=== PATIENT | male | born 1995 | race Caucasian/White ===

== ENCOUNTER → 2019-09-02 08:41 | Outpatient (CLI) | payer OTHER, SELFPAY ==
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
== END ==
PROVIDERS: PCP Student in an Organized Health Care Education/Training Program; Referring Provider Nurse Practitioner; Visit Provider Nurse Practitioner
DX: M79.605 Pain in left leg (principal)
CPT/HCPCS: 73502; 73562; 73610

== ENCOUNTER → 2020-07-24 16:41 | Outpatient (CLI) | payer OTHER, MEDICAID, SELFPAY ==
[2020-07-26 03:03] LABS: Chlamydia trachomatis NAA Negative (Negative); Neisseria gonorrhoeae NAA Negative (Negative)
== END ==
PROVIDERS: PCP Student in an Organized Health Care Education/Training Program; Visit Provider Physician Assistant
DX: R30.0 Dysuria (principal)
CPT/HCPCS: 87491; 87591

== ENCOUNTER → 2020-10-23 09:01 | Outpatient (CLI) | payer BC, OTHER, SELFPAY ==
--- NOTE | 2020-10-23 09:05 | DI.US.S_ITS ---
PROCEDURE: US SCROTUM INDICATIONS: LEFT TESTICULAR LUMP TECHNIQUE: Real-time scanning was performed of the scrotum and testicles, with image documentation. Color and pulse Doppler interrogation was performed of both testicles. COMPARISON: None. FINDINGS: Right: Testicle is normal in size at 2.9 x 4.0 x 5.8 cm, and homogenous in echotexture. Epididymis is normal in overall size and morphology. No hydrocele or varicoceles. Overlying scrotal skin is normal in thickness. Left: Testicle is normal in size at 2.9 x 3.8 x 5.8 cm, and homogeneous in echotexture. Epididymis is normal in overall size and morphology. No hydrocele or varicoceles. Overlying scrotal skin is normal in thickness. The left epididymal tail is identifiable at the area of patient's clinical concern. No abnormality found suggestive of hydrocele, varicocele, or neoplasm.. Doppler: Color and pulse Doppler demonstrate normal and symmetric arterial flow in both testicles. IMPRESSION: The left epididymal tail can be identified at the area of current clinical concern. No testicular mass lesion found. No hyperemia or evidence of recent torsion. Dictated by: Lawrence Salazar M.D. on 10/23/2020 at 10:58 Approved by: Lawrence Salazar M.D. on 10/23/2020 at 11:00
== END ==
PROVIDERS: PCP Student in an Organized Health Care Education/Training Program; Referring Provider Student in an Organized Health Care Education/Training Program; Visit Provider Student in an Organized Health Care Education/Training Program
DX: N50.89 Other specified disorders of the male genital organs (principal)
CPT/HCPCS: 76870

== ENCOUNTER 2020-10-24 02:26 | Emergency (ER) | payer BC, OTHER, SELFPAY ==
--- NOTE | 2020-10-24 02:31 | ED.CHESTPAIN ---
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 His primary concern is of left arm pain, numbness, tingling and maybe even weakness that has been present for at least the past 2 hours. He states that he awoke with a sharp stabbing chest pain and racing heart and now notices the symptoms as mention. He denies any head neck or back injury. He denies any fever or chills. He denies any use of IV drugs or blood thinners. He denies any obvious provocation or palliation of his arm complaints. Additionally he states he has had episodes of twinges in his chest over the past few weeks but was trying to ignore it. Finally he states that he has a fogginess or pressure-like sensation in his head that seems to come and go with a mind of its own. He has no other focal neurologic signs such as blurred vision, trouble with speech or extremity problem outside of his left arm. He did fly to and from we know a few weeks ago. He denies any shortness of breath cough, hemoptysis or history of any kind of cancer. He has had no ongoing care or evaluations post myocardial infarction. Patient does mention that he has been actively working out his forearms in the past day or 2 but is admittedly concerned there may be something else going on, particularly given his history Related Data Previous Rx's Medication Instructions Recorded clonazepam 2 mg tablet 2 mg PO BID #60 tab 10/01/19 Allergies Allergy/AdvReac Type Severity Reaction Status Date / Time shellfish derived Allergy Intermediate Verified 07/24/20 16:42 [SHELLFISH DERIVED] latex [LATEX] Allergy Unknown Verified 10/01/19 10:34 Penicillins [PENICILLINS] Allergy Unknown Verified 07/24/20 16:42 contrast AdvReac Mild Vomiting Uncoded 10/24/20 03:30 Review of Systems Constitutional Constitutional: Denies chills, Denies fatigue, Denies fever(s), Denies frequent falls, Denies lethargy and Reports weakness Eyes Eyes: Denies change in vision, Denies eye discharge, Denies irritation and Denies loss of vision ENT Ears, Nose, Mouth, and Throat: Denies change in voice, Denies dizziness, Denies neck pain, Denies sore throat and Denies throat swelling Cardiovascular Cardiovascular: Reports chest pain, Denies irregular heart rhythm, Denies lightheadedness, Reports palpitations, Denies dyspnea, Denies dyspnea on exertion and Denies orthopnea Respiratory Respiratory: Denies cough, Denies dyspnea, Denies dyspnea on exertion and Denies wheezing Gastrointestinal Gastrointestinal: Denies abdominal pain, Denies change in bowel habits, Denies diarrhea, Denies nausea and Denies vomiting Musculoskeletal Musculoskeletal: Denies neck pain, Reports numbness and Reports tingling Integumentary/Breasts Skin/Breast: Denies pruritus, Denies erythema, Denies rash and Denies wounds Neurologic Neurologic: Denies behavioral changes, Denies confusion, Denies dizziness, Denies frequent falls, Denies loss of vision, Reports numbness, Reports tingling and Reports weakness Psychiatric Psychiatric: Denies anxiety, Denies behavioral changes, Denies confusion, Denies depression, Denies homicidal ideation and Denies suicidal ideation Endocrine Endocrine: Denies fatigue, Denies flushing and Reports palpitations Hematologic/Lymphatic Hematologic/Lymphatic: Denies easy bruising Allergic/Immunologic Allergic/Immunologic: Denies urticaria, Denies throat swelling and Denies wheezing Patient History Medical History Urethral irritation Social History Smoking Status: Former smoker Smoking Status: Former smoker Exam Narrative Exam Narrative: GENERAL: [25] year old patient appears stated age. Well-nourished, well-developed patient, in mild distress. Anxious HEAD: Atraumatic. Normocephalic. EYES: Pupils equal round and reactive. Extraocular motions intact. No scleral icterus. No injection or drainage. ENT: Nose without bleeding, purulent drainage. Throat without erythema, tonsillar hypertrophy or exudate. Airway patent. NECK: Trachea midline. Non tender. No change with axial load of cervical spine, no pain on palpation CARDIOVASCULAR: Regular rate and rhythm without murmurs, gallops, or rubs. No pain on palpation anterior chest RESPIRATORY: Clear to auscultation. Breath sounds equal bilaterally. No wheezes, rales, or rhonchi. GASTROINTESTINAL: Abdomen soft, non-tender, nondistended. EXTREMITIES: No edema or joint tenderness. No discoloration, cap refill intact. No measurable weakness, patient states there is a ?tingling that his deep, not noticed on sensory exam BACK: Nontender without deformity or crepitance. No flank tenderness. NEURO: AOx3. SKIN: No rash or erythema of visible areas Initial Vital Signs Initial Vital Signs: Vital Signs Temperature 98.6 F 10/24/20 02:32 Pulse Rate 96 H 10/24/20 02:32 Respiratory Rate 16 10/24/20 02:32 Blood Pressure 165/100 H 10/24/20 02:32 Pulse Oximetry 100 10/24/20 02:32 Course Orders Ordered: ED Orders 10/24/20 02:28 EKG-12 Lead Stat 10/24/20 02:32 XR chest 1V Stat 10/24/20 02:45 C-Reactive Protein Quant Stat Complete Blood Count AUTO DIFF Stat Comprehensive Metabolic Panel Stat D Dimer Stat Erythrocyte Sedimentation Rate Stat Lipase Stat Troponin & CK Cardiac Panel Stat 10/24/20 02:53 CT angio chest abdomen Stat Sodium Chloride (Normal Saline 0.9%) 1,000 mls @ 150 mls/hr IV CONT NILSA Last Admin: 10/24/20 02:50 Dose: 150 mls/hr Documented by: HENRIK Discontinued Medications Aspirin (Aspirin 81 Mg Chew Tab) 324 mg PO NOW ONE Stop: 10/24/20 02:33 Last Admin: 10/24/20 03:01 Dose: Not Given Documented by: HENRIK Vital Signs Vital signs: Vital Signs - 8 hr 10/24/20 02:32 10/24/20 03:29 10/24/20 03:38 Temperature 98.6 F Pulse Rate 96 H 77 81 Respiratory Rate 16 Blood Pressure 165/100 H Pulse Oximetry 100 100 99 10/24/20 03:39 10/24/20 04:00 Temperature Pulse Rate 74 73 Respiratory Rate 16 Blood Pressure 141/84 H 133/68 Pulse Oximetry 100 98 MDM - Chest Pain Lab Data Result diagrams: 10/24/20 02:45 10/24/20 02:45 Labs: Lab Results 10/24/20 10/24/20 10/24/20 Range/Units 02:45 02:45 02:45 WBC 10.1 (4.5-11.0) X10^3/uL RBC 5.23 (4.5-5.9) X10^6/uL Hgb 15.9 (13.5-17.5) g/dL Hct 46.6 (41-53) % MCV 89.1 (80-100) fL MCH 30.5 (26-34) PG MCHC 34.2 (30-36) % RDW 13.6 (11.6-14.8) % Plt Count 259 (150-400) X10^3/uL Neut % (Auto) 58.6 (50-75) % Lymph % (Auto) 28.0 (25-40) % [place] % (Auto) 10.8 (3-14) % Eos % (Auto) 2.2 (2-4) % Baso % (Auto) 0.4 (0-2) % Neut # (Auto) 5900 (6348-3863) /uL Lymph # (Auto) 2800 (8221-4533) /uL [place] # (Auto) 1100 H (0-900) /uL Eos # (Auto) 200 (0-450) /uL Baso # (Auto) 0 (0-100) /uL ESR 1 (0-15) MM/HR D-Dimer < 200 (<230) ng/mL Sodium 137 (137-145) mmol/L Potassium 3.4 (3.4-5.1) mmol/L Chloride 99 (98-107) mmol/L Carbon Dioxide 28 (22-32) mmol/L BUN 21 H (9-20) mg/dL Creatinine 0.81 (0.66-1.25) mg/dL Estimated GFR > 60.0 (>60) mL/min BUN/Creatinine Ratio 25.9 H (6-22) Glucose 99 (70-100) mg/dL Calcium 9.9 (8.4-10.2) mg/dL Total Bilirubin 0.6 (0.2-1.3) mg/dL AST 40 (17-59) IU/L ALT 43 (<50) IU/L Alkaline Phosphatase 51 (38-126) U/L Total Creatine Kinase 194 H (55-170) U/L CK-MB (CK-2) 1.00 (<2.37) ng/mL CK-MB (CK-2) Rel Index 0.5 L (1.5-5.0) % Troponin I < 0.012 (0.01-0.034) ng/mL C-Reactive Protein < 0.5 (<1.0) mg/dL Total Protein 7.8 (6.3-8.2) g/dL Albumin 4.6 (3.5-5.0) g/dL Globulin 3.2 (1.7-4.1) g/dL Albumin/Globulin Ratio 1.4 (1.0-2.8) Lipase 75 (23-300) U/L Imaging Data CT scan - chest: Radiologist's Impression: Normal CT angiography of the chest and abdomen ECG Data Interpretation: EKG is normal sinus rhythm rate [87] and free of any signs of ischemia or ectopy. No ST segmental elevation or depression. No T wave inversions. Q-wave in 2 and 3 MDM Narrative Medical decision making narrative: Multiple complaints occurring at different time in place over the past few weeks are unlikely to be related however significant diagnoses such as pulmonary embolism, myocardial infarction and large vessel dissection were considered but thought unlikely given elements of history, physical, labs and imaging. Multiple causes of chest pain considered including MS, PE, pneumothorax, pneumonia, aortic dissection, and pleurisy. Patient reports no radiation, no diaphoresis, no provocation with exertion, and no vomiting. Stroke considered but thought unlikely given physical exam findings and patient reported history. Patient has been given return precautions, already has an established follow-up visit and has had questions answered to his apparent satisfaction Discharge Plan Departure Patient Disposition: Home Clinical Impression: Tingling of left upper extremity, Heart palpitations Activity Restrictions/Additional Instructions: *You have been diagnosed with [left arm tingling, atypical chest pain and palpitations. Your history, physical exam, lab work, EKG and CT scan are very reassuring] *What to do: *Please continue to take your regular medications as directed. [ ] New medication prescriptions sent to your pharmacy: [ ] [ ] New medication written as a paper prescription [ X] No new medications given *Please follow up with Dr. Dalal tomorrow as planned, however, please call the office later today and let them know you were seen in the Emergency Department so he may go through the record of today's events prior to her visit *Return to Emergency Department if you should have any new, worsening or concerning symptoms, such as [fever greater than 101 F, shaking chills, worsening pain, persistent vomiting or other bothersome symptoms] Prescriptions: No Action clonazepam 2 mg tablet 2 mg PO BID Qty: 60 RF: 5 Referrals: Cesar Dalal MD [Primary Care Provider] -
[2020-10-24 02:32] VITALS: BP 165/100; PULSE 96; RESP 16; TEMP 37; O2SAT 100; BMI 29.5
--- NOTE | 2020-10-24 02:32 | DI.RAD.S_ITS ---
PROCEDURE: XR CHEST 1V INDICATIONS: tachycardia, history of PR TECHNIQUE: One view of the chest was acquired. COMPARISON: None. FINDINGS: Surgical changes and devices: None. Lungs and pleura: Lungs are clear. No pleural effusions or pneumothorax. Mediastinum: Mediastinal contours appear normal. Heart size is normal. Bones and chest wall: No suspicious bony lesions. Overlying soft tissues appear unremarkable. IMPRESSION: No acute cardiopulmonary disease process. Dictated by: Katy Crespo MD, PhD on 10/24/2020 at 9:07 Approved by: Katy Crespo MD, PhD on 10/24/2020 at 9:07
[2020-10-24] MEDS: SODIUM CHLORIDE 0.9% 1,000 ML 150 ML IV (02:50)
--- NOTE | 2020-10-24 02:53 | DI.CT.S_ITS ---
PROCEDURE: CT ANGIO CHEST ABDOMEN INDICATIONS: chest discomfort, arm pain and tingling, cold feeling TECHNIQUE: Precontrast 5 mm thick sections acquired from the lung apices to the iliac crests. After the administration of intravenous contrast, 2.5 mm thick sections again acquired from the lung apices to the iliac crests. 10 mm maximum intensity projection (MIP) oblique sagittal and coronal reformats were then acquired. For radiation dose reduction, the following was used: automated exposure control. COMPARISON: None. FINDINGS: Image quality: Excellent. AORTA: Intramural hematoma: Absent Maximum hematoma thickness: Not applicable. Focal contrast enhancement: Intramural blood pool (< 2 mm neck or imperceptible communication with aortic lumen): Absent. Ulcer-like projection (broad communication with aortic lumen > 3 mm): Absent. Dissection: Absent [place] classification: Not applicable Maximum aortic diameter: 3.1 cm. [If Jasson A dissection, > 5.0 cm has a poorer prognosis. If Jasson B dissection, > 4.0 cm has a poorer prognosis.] Periaortic hematoma: Absent. CHEST: Lungs and pleura: No acute airspace opacities. No pleural effusions or pneumothorax. Central and peripheral airways are patent and normal in caliber. Mediastinum: Heart size is normal. No pericardial effusion. No mediastinal or hilar adenopathy by size criteria. Central pulmonary arteries are normal in size. Esophagus is normal in caliber. Small hiatal hernia. Bones and chest wall: No axillary adenopathy by size criteria. Thyroid gland is normal.. No suspicious bony lesions. No vertebral body compression fractures. ABDOMEN: Vasculature: Celiac trunk and mesenteric arteries are patent. Renal arteries are also patent. Solid organs: Liver is normal in size and enhancement. Gallbladder is contracted, but within normal limits. Biliary system is non dilated. Pancreas enhances normally. Spleen is normal in size and enhancement. No adrenal nodules. Both kidneys are normal in size and enhancement, without hydronephrosis. Peritoneum and bowel: No free fluid or air. Bowel loops are normal in caliber and wall thickness. Nodes and vessels: No retroperitoneal or mesenteric adenopathy by size criteria. Inferior vena cava is normal in morphology. Bones: No suspicious bony lesions. No vertebral body compression fractures. Miscellaneous: No ventral hernias. IMPRESSION: No evidence of aortic dissection or aortic aneurysm. Dictated by: Katy Crespo MD, PhD on 10/24/2020 at 7:11 Approved by: Katy Crespo MD, PhD on 10/24/2020 at 7:16
[2020-10-24 02:54] LABS: Add Manual Diff / Slide Review NO; Basophils Absolute Auto 0 /uL (0-100); Basophils Percent Auto 0.4 % (0-2); Eosinophils Absolute Auto 200 /uL (0-450); Eosinophils Percent Auto 2.2 % (2-4); Hematocrit 46.6 % (41-53); Hemoglobin 15.9 g/dL (13.5-17.5); Lymphocytes Absolute Auto 2800 /uL (1100-4500); Mean Corpuscular HGB Conc 34.2 % (30-36); Mean Corpuscular Hemoglobin 30.5 PG (26-34); Mean Corpuscular Volume 89.1 fL (80-100); Monocytes Absolute Auto 1100 /uL (0-900); Monocytes Percent Auto 10.8 % (3-14); Neutrophils Absolute Auto 5900 /uL (1500-7000); Neutrophils Percent Auto 58.6 % (50-75); Platelet Count 259 X10^3/uL (150-400); Red Blood Cell Count 5.23 X10^6/uL (4.5-5.9); Red Cell Distribution Width 13.6 % (11.6-14.8); White Blood Cell Count 10.1 X10^3/uL (4.5-11.0)
[2020-10-24 03:05] LABS: D Dimer < 200 ng/mL (<230)
[2020-10-24 03:10] LABS: Alanine Aminotransferase 43 IU/L (<50); Albumin 4.6 g/dL (3.5-5.0); Albumin Globulin Ratio 1.4 (1.0-2.8); Alkaline Phosphatase 51 U/L (38-126); Aspartate Aminotransferase 40 IU/L (17-59); BUN Creatinine Ratio 25.9 (6-22); Bilirubin Total 0.6 mg/dL (0.2-1.3); Blood Urea Nitrogen 21 mg/dL (9-20); Calcium 9.9 mg/dL (8.4-10.2); Carbon Dioxide 28 mmol/L (22-32); Chloride 99 mmol/L (98-107); Creatine Kinase 194 U/L (55-170); Estimated Glomerular Filt Rate > 60.0 mL/min (>60); Globulin 3.2 g/dL (1.7-4.1); Glucose 99 mg/dL (70-100); HEMOLYSIS < 15 (0-50); Lipase 75 U/L (23-300); Potassium 3.4 mmol/L (3.4-5.1); Sodium 137 mmol/L (137-145); Total Protein 7.8 g/dL (6.3-8.2)
[2020-10-24 03:21] LABS: Troponin I < 0.012 ng/mL (0.01-0.034)
[2020-10-24 03:25] LABS: CKMB % Relative Index 0.5 % (1.5-5.0)
[2020-10-24 03:29] VITALS: PULSE 77; O2SAT 100
[2020-10-24 03:29] LABS: Erythrocyte Sedimentation Rate 1 MM/HR (0-15)
[2020-10-24 03:31] LABS: C-Reactive Protein Quant < 0.5 mg/dL (<1.0)
[2020-10-24 03:38] VITALS: PULSE 81; O2SAT 99
[2020-10-24 03:39] VITALS: BP 141/84; PULSE 74; O2SAT 100
[2020-10-24 04:00] VITALS: BP 133/68; PULSE 73; RESP 16; O2SAT 98
== END 2020-10-24 04:28 | disposition home or self-care (01) ==
PROVIDERS: Emergency Provider Emergency Medicine; PCP Student in an Organized Health Care Education/Training Program
DX: R20.2 Paresthesia of skin (principal); R00.2 Palpitations; M79.602 Pain in left arm
CPT/HCPCS: 36415; 71045; 71275; 74175; 80053; 82550; 82553; 83690; 84484; 85025; 85379; 85651; 86140; 93005; 96360; 96361; 99284; 99285; Q9967

== ENCOUNTER → 2022-08-20 17:53 | Outpatient (CLI) | payer OTHER, MEDICAID, SELFPAY | PROVIDERS: PCP Student in an Organized Health Care Education/Training Program; Visit Provider Physician Assistant | DX: T14.8XXA Other injury of unspecified body region, initial encounter (principal) | CPT/HCPCS: 87070; 87075; 87205 ==

== ENCOUNTER 2024-06-23 04:18 | Inpatient (IN) | payer OTHER, SELFPAY ==
[2024-06-23] VITALS (127 sets, daily range): BP systolic 119–154; BP diastolic 74–103; PULSE 68–119; RESP 11–21; TEMP 31.2–38.3; O2SAT 93–99; BMI 26.5
--- NOTE | 2024-06-23 04:21 | DI.RAD.S_ITS ---
PROCEDURE: XR CHEST 1V INDICATIONS: seizure, ? overdose TECHNIQUE: One view of the chest was acquired. COMPARISON: [facility], CR, XR CHEST 1V, 10/24/2020, 2:36. FINDINGS: Surgical changes and devices: Endotracheal tube tip projects 4.7 cm above the madelaine. Lungs and pleura: Lungs are clear. No pleural effusions or pneumothorax. Mediastinum: Mediastinal contours appear normal. Heart size is normal. Bones and chest wall: No suspicious bony lesions. Overlying soft tissues appear unremarkable. IMPRESSION: No acute cardiopulmonary abnormality is seen. Appropriate positioning of endotracheal tube. No significant discrepancy with the double ending machine operator radiology preliminary report. Dictated by: Varinder Vivas M.D. on 06/23/2024 at 8:43 Approved by: Varinder Vivas M.D. on 06/23/2024 at 8:44
--- NOTE | 2024-06-23 04:21 | DI.CT.S_ITS ---
PROCEDURE: CT HEAD/BRAIN WO CON INDICATIONS: seizure, ? overdose TECHNIQUE: Noncontrast 4.5 mm thick angled axial sections acquired from the foramen magnum to the vertex, with coronal and sagittal reformats. For radiation dose reduction, the following was used: automated exposure control, adjustment of mA and/or kV according to patient size. COMPARISON: None. FINDINGS: Image quality: Diagnostic. CSF spaces: Basal cisterns are patent. No extra-axial fluid collections. Ventricles are normal in size and shape. Brain: No midline shift. No intracranial masses or hemorrhage. Mcginnis-white matter interface is normal. Skull and face: Calvarium and visualized facial bones are intact, without suspicious lesions. Sinuses: Bilateral maxillary sinus mucosal thickening. Remainder of the paranasal sinuses appear clear. Mastoid air cells are well-aerated. IMPRESSION: No acute intracranial abnormalities. No acute calvarial fracture. Bilateral maxillary sinus disease. No significant discrepancy with the shift foreman radiology preliminary report. Dictated by: Varinder Vivas M.D. on 06/23/2024 at 8:43 Approved by: Varinder Vivas M.D. on 06/23/2024 at 8:43
[2024-06-23] MEDS: LORazepam 2 MG/ML INJ 1 MG IV ×3 (04:25→09:40)
[2024-06-23] MEDS: SODIUM CHLORIDE 0.9% 1,000 ML 1000 ML IV ×2 (04:30→05:30)
[2024-06-23] MEDS: LORazepam 2 MG/ML INJ IV ×2 (04:33→05:12)
[2024-06-23 04:39] LABS: Add Manual Diff / Slide Review NO; Basophils Absolute Auto 0 /uL (0-100); Basophils Percent Auto 0.2 % (0-2); Eosinophils Absolute Auto 0 /uL (0-450); Eosinophils Percent Auto 0.3 % (2-4); Hemoglobin 15.9 g/dL (13.5-17.5); Lymphocytes Absolute Auto 6800 /uL (1100-4500); Lymphocytes Percent Auto 59.2 % (25-40); Mean Corpuscular HGB Conc 33.9 % (30-36); Mean Corpuscular Hemoglobin 32.5 PG (26-34); Mean Corpuscular Volume 95.8 fL (80-100); Monocytes Absolute Auto 500 /uL (0-900); Monocytes Percent Auto 4.8 % (3-14); Neutrophils Absolute Auto 4100 /uL (1500-7000); Neutrophils Percent Auto 35.5 % (50-75); Platelet Count 378 X10^3/uL (150-400); Red Blood Cell Count 4.91 X10^6/uL (4.5-5.9); Red Cell Distribution Width 14.3 % (11.6-14.8); White Blood Cell Count 11.5 X10^3/uL (4.5-11.0)
[2024-06-23] MEDS: ETOMIDATE 2 MG/ML 10 ML VIAL 10 MG IV (04:43)
--- NOTE | 2024-06-23 04:43 | PC.NURSE ---
Respiratory therapy- Dr. Jorden Cherry Kate, RN and this nurse at bedside to intubate patient. Medications given- See AUG. Dr. Leonardo intubated, Ett size 7.5 tube placed at 0445. Tube measuring 25cm at the teeth. Bilat breath sounds auscultated, bilateral chest rise visualized, exhaled co2 on monitor. Pt now getting chest xray.
[2024-06-23] MEDS: SUCCINYLCHOLINE 200 MG/10 ML VIAL 100 MG IV (04:44)
[2024-06-23] MEDS: propofoL 200 MG/20 ML VIAL 100 MG IV (04:48)
[2024-06-23] MEDS: propofoL 1,000 MG/100 ML VIAL 2.585 MG IV (04:50)
--- NOTE | 2024-06-23 04:56 | ED_ITS ---
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 (>60) mL/min BUN/Creatinine Ratio 6.2 (6-22) Glucose 108 H (70-100) mg/dL Lactate 2.8 H (0.7-2.1) mmol/L Calcium 9.3 (8.4-10.2) mg/dL Total Bilirubin 0.3 (0.2-1.3) mg/dL Conjugated Bilirubin 0.0 (0.0-0.3) md/dL Unconjugated Bilirubin 0.1 (0.0-1.1) mg/dL AST 63 H (17-59) IU/L ALT 53 H (<50) IU/L Alkaline Phosphatase 68 (38-126) U/L Total Creatine Kinase 95 (55-170) U/L Troponin I < 0.012 (0.01-0.034) ng/mL Total Protein 8.5 H (6.3-8.2) g/dL Albumin 4.6 (3.5-5.0) g/dL Globulin 3.9 (1.7-4.1) g/dL Albumin/Globulin Ratio 1.2 (1.0-2.8) Urine Color Yellow Urine Appearance Clear Urine pH 5.5 TNP (4.5-8.0) Ur Specific [place] 1.020 (1.000-1.035) Urine Protein Negative (Negative) Urine Glucose (UA) Negative (Negative) g/dL Urine Ketones Negative (NEGATIVE) Urine Occult Blood Negative (Negative) Urine Nitrate Negative (Negative) Urine Bilirubin Negative (NEGATIVE) Urine Urobilinogen 0.2 (0.2) E.U./dL Ur Leukocyte Esterase Negative (NEGATIVE) Urine RBC None seen (0-5/HPF) Urine WBC None seen (0-5/HPF) Ur Squamous Epith Cells 0-1 /hpf (0-5/HPF) Urine Bacteria None seen (None) Ur Culture Indicated? Cult not indicated Vol Urine Centrifuged 10ml (spun) Salicylates < 1.0 (<20) mg/dL U Opiates 300ng/mL cut Negative (Negative) Ur Oxycodone Screen Negative (Negative) Urine Methadone Screen Negative (Negative) Acetaminophen < 10 (10-30) ug/mL Ur Barbiturates Screen Negative (Negative) U Tricyclic Antidepress Positive H (Negative) Ur Phencyclidine Scrn Negative (Negative) Ur Amphetamines Screen Positive H (Negative) U Methamphetamines Scrn Positive H (Negative) Ur MDMA Scrn (Ecstasy) Positive H (Negative) U Benzodiazepines Scrn Positive H (Negative) Urine Cocaine Screen Positive H (Negative) U Marijuana (THC) Screen Negative (Negative) Urine Specific [place] TNP Ethyl Alcohol 224 H ( - 10) mg/dL Ur Creatinine TNP 06/23/24 06/23/24 06/23/24 Range/Units 05:04 06:24 06:55 WBC (4.5-11.0) X10^3/uL RBC (4.5-5.9) X10^6/uL Hgb (13.5-17.5) g/dL Hct (41-53) % MCV (80-100) fL MCH (26-34) PG MCHC (30-36) % RDW (11.6-14.8) % Plt Count (150-400) X10^3/uL Neut % (Auto) (50-75) % Lymph % (Auto) (25-40) % [place] % (Auto) (3-14) % Eos % (Auto) (2-4) % Baso % (Auto) (0-2) % Neut # (Auto) (4478-9103) /uL Lymph # (Auto) (2865-5708) /uL [place] # (Auto) (0-900) /uL Eos # (Auto) (0-450) /uL Baso # (Auto) (0-100) /uL ABG Sample Site Left radial Left radial ABG pH 7.29 L* 7.33 L (7.35-7.45) ABG pCO2 61.3 H* 52.4 H (35-45) mmHg ABG pO2 575 H* 199 H (80-100) mmHg ABG HCO3 30 H 28 H (23-27) mmol/L ABG Total CO2 29 H 27 (23-27) mmol/L ABG O2 Saturation 100 100 (95-100) % ABG Base Excess 1.3 0.5 (-2-3) mmol/L Rufus Test Positive Positive Respiration Rate 16 16 O2 Delivery Device vent Adult ventilator FiO2 % 100 50.0 % % Tidal Volume 450 PEEP or CPAP 5 5 Sodium (137-145) mmol/L Potassium (3.4-5.1) mmol/L Chloride (98-107) mmol/L Carbon Dioxide (22-32) mmol/L BUN (9-20) mg/dL Creatinine (0.66-1.25) mg/dL Estimated GFR (>60) mL/min BUN/Creatinine Ratio (6-22) Glucose (70-100) mg/dL Lactate 1.4 (0.7-2.1) mmol/L Calcium (8.4-10.2) mg/dL Total Bilirubin (0.2-1.3) mg/dL Conjugated Bilirubin (0.0-0.3) md/dL Unconjugated Bilirubin (0.0-1.1) mg/dL AST (17-59) IU/L ALT (<50) IU/L Alkaline Phosphatase (38-126) U/L Total Creatine Kinase (55-170) U/L Troponin I (0.01-0.034) ng/mL Total Protein (6.3-8.2) g/dL Albumin (3.5-5.0) g/dL Globulin (1.7-4.1) g/dL Albumin/Globulin Ratio (1.0-2.8) Urine Color Urine Appearance Urine pH (4.5-8.0) Ur Specific [place] (1.000-1.035) Urine Protein (Negative) Urine Glucose (UA) (Negative) g/dL Urine Ketones (NEGATIVE) Urine Occult Blood (Negative) Urine Nitrate (Negative) Urine Bilirubin (NEGATIVE) Urine Urobilinogen (0.2) E.U./dL Ur Leukocyte Esterase (NEGATIVE) Urine RBC (0-5/HPF) Urine WBC (0-5/HPF) Ur Squamous Epith Cells (0-5/HPF) Urine Bacteria (None) Ur Culture Indicated? Vol Urine Centrifuged Salicylates (<20) mg/dL U Opiates 300ng/mL cut (Negative) Ur Oxycodone Screen (Negative) Urine Methadone Screen (Negative) Acetaminophen (10-30) ug/mL Ur Barbiturates Screen (Negative) U Tricyclic Antidepress (Negative) Ur Phencyclidine Scrn (Negative) Ur Amphetamines Screen (Negative) U Methamphetamines Scrn (Negative) Ur MDMA Scrn (Ecstasy) (Negative) U Benzodiazepines Scrn (Negative) Urine Cocaine Screen (Negative) U Marijuana (THC) Screen (Negative) Urine Specific [place] Ethyl Alcohol ( - 10) mg/dL Ur Creatinine Point of Care Testing Glucose POC 100 ECG Data Attestation: I personally reviewed and interpreted this ECG as follows: Interpretation: Sinus rhythm rate 86 AK 172 QRS of 104 QTC of 471. No acute ST changes. MDM Narrative Medical decision making narrative: 29-year-old male reported history of seizure disorder but patient's movements and exam seem more consistent with potential overdose. Pupils are significantly dilated patient is diaphoretic, he is flexed with his arms but moving them slowly throughout the air there was no clonus, patient does not have any tonic- clonic activity. Patient is tachycardic, diaphoretic. Patient arrived via private auto with his girlfriend who indicated that patient had likely ingested something at a alliance party earlier tonight. Patient placed on O2, end-tidal CO2 shows range of 50. Patient is clearly altered possible seizure activity had 2 doses of 1 mg Ativan followed by an additional 2 mg of Ativan had some slight relaxation but still very consistent findings. Concern for airway protection and patient was intubated. Poison control was contacted a 0502: Reviewed labs thus far urine is still pending troponin still pending. Patient's vitals on presentation. They recommend fluids L bolus followed by 2 times maintenance rate of 150 mL/hour, benzodiazepines supportive management. They suspect sympathomimetic source. Labs show white count 11.5 hemoglobin of 15.9 platelets of 378 predominance lymphocytes. Chemistry shows sodium 148 potassium of 5 chloride 110, CO2 of 29 BUN of 5 with a creatinine 0.81 glucose of 108 lactate was 2.8 otherwise normal bilirubin, AST 63 ALT is 53 with a alk-phos of 68 total CK is 95 troponins less than 0.012. Patient has a negative salicylates, negative acetaminophen ETOH is 224. Rapid drug screen is positive for tricyclics, amphetamines, methamphetamines, MDMA, i and cocaine. Patient was also positive for benzodiazepines but had these here in the department prior to urine sample. UA is negative Initial ABG shows a pH of 7.29 pCO2 of 61 PO2 of 575 with a bicarb of 30 this was just shortly after intubation patient's respiratory rate was increased from 12-16 and FiO2 was decreased. Repeat ABG shows improvement patient's acidosis was pH of 7.33 pCO2 of 52 with a PO2 of 199 and a bicarb of 28. Head CT showed no acute intracranial abnormality bilateral maxillary sinus disease. Chest x-ray shows endotracheal tube in position no acute cardiopulmonary abnormality identified. Patient received adamant 4 mg total in 3 doses. Had minimal improvement patient's end tidal CO2 was quite elevated he was diaphoretic and not protecting his airway so decision was made to intubate. Patient received etomidate and succinylcholine, ET tube was placed and place him was placed on propofol for sedation with benzodiazepines PRN. After intubation patient was sedated has not had any additional atypical movements. Patient's tachycardia improved. Plan for admission, patient signed out to Dr. Bee while awaiting callback. Dr bee: Received turned over. Discussed the case with Dr. Paul hospitalist on-call who accepts the patient for further evaluation and treatment. <Warren Bee, DO - Last Filed: 06/23/24 07:59> Lab Data Labs: Lab Results 06/23/24 06/23/24 06/23/24 Range/Units 04:24 04:50 04:50 WBC 11.5 H (4.5-11.0) X10^3/uL RBC 4.91 (4.5-5.9) X10^6/uL Hgb 15.9 (13.5-17.5) g/dL Hct 47.0 (41-53) % MCV 95.8 (80-100) fL MCH 32.5 (26-34) PG MCHC 33.9 (30-36) % RDW 14.3 (11.6-14.8) % Plt Count 378 (150-400) X10^3/uL Neut % (Auto) 35.5 L (50-75) % Lymph % (Auto) 59.2 H (25-40) % [place] % (Auto) 4.8 (3-14) % Eos % (Auto) 0.3 L (2-4) % Baso % (Auto) 0.2 (0-2) % Neut # (Auto) 4100 (0230-8210) /uL Lymph # (Auto) 6800 H (3316-8416) /uL [place] # (Auto) 500 (0-900) /uL Eos # (Auto) 0 (0-450) /uL Baso # (Auto) 0 (0-100) /uL ABG Sample Site ABG pH (7.35-7.45) ABG pCO2 (35-45) mmHg ABG pO2 (80-100) mmHg ABG HCO3 (23-27) mmol/L ABG Total CO2 (23-27) mmol/L ABG O2 Saturation (95-100) % ABG Base Excess (-2-3) mmol/L Rufus Test Respiration Rate O2 Delivery Device FiO2 % % Tidal Volume PEEP or CPAP Sodium 148 H (137-145) mmol/L Potassium 5.0 (3.4-5.1) mmol/L Chloride 110 H (98-107) mmol/L Carbon Dioxide 29 (22-32) mmol/L BUN 5 L (9-20) mg/dL Creatinine 0.81 (0.66-1.25) mg/dL Estimated GFR > 60 (>60) mL/min BUN/Creatinine Ratio 6.2 (6-22) Glucose 108 H (70-100) mg/dL Lactate 2.8 H (0.7-2.1) mmol/L Calcium 9.3 (8.4-10.2) mg/dL Total Bilirubin 0.3 (0.2-1.3) mg/dL Conjugated Bilirubin 0.0 (0.0-0.3) md/dL Unconjugated Bilirubin 0.1 (0.0-1.1) mg/dL AST 63 H (17-59) IU/L ALT 53 H (<50) IU/L Alkaline Phosphatase 68 (38-126) U/L Total Creatine Kinase 95 (55-170) U/L Troponin I < 0.012 (0.01-0.034) ng/mL Total Protein 8.5 H (6.3-8.2) g/dL Albumin 4.6 (3.5-5.0) g/dL Globulin 3.9 (1.7-4.1) g/dL Albumin/Globulin Ratio 1.2 (1.0-2.8) Urine Color Yellow Urine Appearance Clear Urine pH 5.5 TNP (4.5-8.0) Ur Specific [place] 1.020 (1.000-1.035) Urine Protein Negative (Negative) Urine Glucose (UA) Negative (Negative) g/dL Urine Ketones Negative (NEGATIVE) Urine Occult Blood Negative (Negative) Urine Nitrate Negative (Negative) Urine Bilirubin Negative (NEGATIVE) Urine Urobilinogen 0.2 (0.2) E.U./dL Ur Leukocyte Esterase Negative (NEGATIVE) Urine RBC None seen (0-5/HPF) Urine WBC None seen (0-5/HPF) Ur Squamous Epith Cells 0-1 /hpf (0-5/HPF) Urine Bacteria None seen (None) Ur Culture Indicated? Cult not indicated Vol Urine Centrifuged 10ml (spun) Salicylates < 1.0 (<20) mg/dL U Opiates 300ng/mL cut Negative (Negative) Ur Oxycodone Screen Negative (Negative) Urine Methadone Screen Negative (Negative) Acetaminophen < 10 (10-30) ug/mL Ur Barbiturates Screen Negative (Negative) U Tricyclic Antidepress Positive H (Negative) Ur Phencyclidine Scrn Negative (Negative) Ur Amphetamines Screen Positive H (Negative) U Methamphetamines Scrn Positive H (Negative) Ur MDMA Scrn (Ecstasy) Positive H (Negative) U Benzodiazepines Scrn Positive H (Negative) Urine Cocaine Screen Positive H (Negative) U Marijuana (THC) Screen Negative (Negative) Urine Specific [place] TNP Ethyl Alcohol 224 H ( - 10) mg/dL Ur Creatinine TNP 06/23/24 06/23/24 06/23/24 Range/Units 05:04 06:24 06:55 WBC (4.5-11.0) X10^3/uL RBC (4.5-5.9) X10^6/uL Hgb (13.5-17.5) g/dL Hct (41-53) % MCV (80-100) fL MCH (26-34) PG MCHC (30-36) % RDW (11.6-14.8) % Plt Count (150-400) X10^3/uL Neut % (Auto) (50-75) % Lymph % (Auto) (25-40) % [place] % (Auto) (3-14) % Eos % (Auto) (2-4) % Baso % (Auto) (0-2) % Neut # (Auto) (4133-3341) /uL Lymph # (Auto) (8074-3614) /uL [place] # (Auto) (0-900) /uL Eos # (Auto) (0-450) /uL Baso # (Auto) (0-100) /uL ABG Sample Site Left radial Left radial ABG pH 7.29 L* 7.33 L (7.35-7.45) ABG pCO2 61.3 H* 52.4 H (35-45) mmHg ABG pO2 575 H* 199 H (80-100) mmHg ABG HCO3 30 H 28 H (23-27) mmol/L ABG Total CO2 29 H 27 (23-27) mmol/L ABG O2 Saturation 100 100 (95-100) % ABG Base Excess 1.3 0.5 (-2-3) mmol/L Rufus Test Positive Positive Respiration Rate 16 16 O2 Delivery Device vent Adult ventilator FiO2 % 100 50.0 % % Tidal Volume 450 PEEP or CPAP 5 5 Sodium (137-145) mmol/L Potassium (3.4-5.1) mmol/L Chloride (98-107) mmol/L Carbon Dioxide (22-32) mmol/L BUN (9-20) mg/dL Creatinine (0.66-1.25) mg/dL Estimated GFR (>60) mL/min BUN/Creatinine Ratio (6-22) Glucose (70-100) mg/dL Lactate 1.4 (0.7-2.1) mmol/L Calcium (8.4-10.2) mg/dL Total Bilirubin (0.2-1.3) mg/dL Conjugated Bilirubin (0.0-0.3) md/dL Unconjugated Bilirubin (0.0-1.1) mg/dL AST (17-59) IU/L ALT (<50) IU/L Alkaline Phosphatase (38-126) U/L Total Creatine Kinase (55-170) U/L Troponin I (0.01-0.034) ng/mL Total Protein (6.3-8.2) g/dL Albumin (3.5-5.0) g/dL Globulin (1.7-4.1) g/dL Albumin/Globulin Ratio (1.0-2.8) Urine Color Urine Appearance Urine pH (4.5-8.0) Ur Specific [place] (1.000-1.035) Urine Protein (Negative) Urine Glucose (UA) (Negative) g/dL Urine Ketones (NEGATIVE) Urine Occult Blood (Negative) Urine Nitrate (Negative) Urine Bilirubin (NEGATIVE) Urine Urobilinogen (0.2) E.U./dL Ur Leukocyte Esterase (NEGATIVE) Urine RBC (0-5/HPF) Urine WBC (0-5/HPF) Ur Squamous Epith Cells (0-5/HPF) Urine Bacteria (None) Ur Culture Indicated? Vol Urine Centrifuged Salicylates (<20) mg/dL U Opiates 300ng/mL cut (Negative) Ur Oxycodone Screen (Negative) Urine Methadone Screen (Negative) Acetaminophen (10-30) ug/mL Ur Barbiturates Screen (Negative) U Tricyclic Antidepress (Negative) Ur Phencyclidine Scrn (Negative) Ur Amphetamines Screen (Negative) U Methamphetamines Scrn (Negative) Ur MDMA Scrn (Ecstasy) (Negative) U Benzodiazepines Scrn (Negative) Urine Cocaine Screen (Negative) U Marijuana (THC) Screen (Negative) Urine Specific [place] Ethyl Alcohol ( - 10) mg/dL Ur Creatinine Point of Care Testing Glucose POC 100 MDM Narrative Medical decision making narrative: 29-year-old male reported history of seizure disorder but patient's movements and exam seem more consistent with potential overdose. Pupils are significantly dilated patient is diaphoretic, he is flexed with his arms but moving them slowly throughout the air there was no clonus, patient does not have any tonic- clonic activity. Patient is tachycardic, diaphoretic. Patient arrived via private auto with his girlfriend who indicated that patient had likely ingested something at a alliance party earlier tonight. Patient placed on O2, end-tidal CO2 shows range of 50. Patient is clearly altered possible seizure activity had 2 doses of 1 mg Ativan followed by an additional 2 mg of Ativan had some slight relaxation but still very consistent findings. Concern for airway protection and patient was intubated. Poison control was contacted a [phone]: Reviewed labs thus far urine is still pending troponin still pending. Patient's vitals on presentation. They recommend fluids L bolus followed by 2 times maintenance rate of 150 mL/hour, benzodiazepines supportive management. They suspect sympathomimetic source. Labs show white count 11.5 hemoglobin of 15.9 platelets of 378 predominance lymphocytes. Chemistry shows sodium 148 potassium of 5 chloride 110, CO2 of 29 BUN of 5 with a creatinine 0.81 glucose of 108 lactate was 2.8 otherwise normal bilirubin, AST 63 ALT is 53 with a alk-phos of 68 total CK is 95 troponins less than 0.012. Patient has a negative salicylates, negative acetaminophen ETOH is 224. Rapid drug screen is positive for tricyclics, amphetamines, methamphetamines, MDMA, i and cocaine. Patient was also positive for benzodiazepines but had these here in the department prior to urine sample. UA is negative Initial ABG shows a pH of 7.29 pCO2 of 61 PO2 of 575 with a bicarb of 30 this was just shortly after intubation patient's respiratory rate was increased from 12-16 and FiO2 was decreased. Repeat ABG shows improvement patient's acidosis was pH of 7.33 pCO2 of 52 with a PO2 of 199 and a bicarb of 28. Head CT showed no acute intracranial abnormality bilateral maxillary sinus disease. Chest x-ray shows endotracheal tube in position no acute cardiopulmonary abnormality identified. Patient received adamant 4 mg total in 3 doses. Had minimal improvement patient's end tidal CO2 was quite elevated he was diaphoretic and not protecting his airway so decision was made to intubate. Patient received etomidate and succinylcholine, ET tube was placed and place him was placed on propofol for sedation with benzodiazepines PRN. Plan for admission, patient signed out to Dr. Bee while awaiting callback. Dr bee: Received turned over. Discussed the case with Dr. Paul hospitalist on-call who accepts the patient for further evaluation and treatment. Critical Care Time <Taylor Leonardo, DO - Last Filed: 06/23/24 22:35> Critical Care Time Critical Care Time: Yes Total Critical Care Time: 45 Attestation: The high probability of a clinically significant, sudden or life threatening deterioration of the neurologic, cardiac and pulmonary system(s) required my full and direct attention, intervention and personal management. The aggregate critical care time was [--] minutes. This time is in addition to time spent performing reported procedures but includes the following: [x] Data Review and interpretation [x] Patient assessment and monitoring of vital signs [x] Documentation [x] Medication orders and management Discharge Plan Departure Patient Disposition: Admitted As Inpatient Clinical Impression: Overdose Admit Date/Time: 06/23/24 07:57 Admit Provider: Carl Pual
[2024-06-23 04:57] LABS: Acetaminophen < 10 ug/mL (10-30); Alanine Aminotransferase 53 IU/L (<50); Albumin 4.6 g/dL (3.5-5.0); Albumin Globulin Ratio 1.2 (1.0-2.8); Alkaline Phosphatase 68 U/L (38-126); Aspartate Aminotransferase 63 IU/L (17-59); BUN Creatinine Ratio 6.2 (6-22); Bilirubin Total 0.3 mg/dL (0.2-1.3); Bilirubin Unconjugated 0.1 mg/dL (0.0-1.1); Blood Urea Nitrogen 5 mg/dL (9-20); Calcium 9.3 mg/dL (8.4-10.2); Carbon Dioxide 29 mmol/L (22-32); Chloride 110 mmol/L (98-107); Estimated Glomerular Filt Rate > 60 mL/min (>60); Globulin 3.9 g/dL (1.7-4.1); Glucose 108 mg/dL (70-100); HEMOLYSIS 20 (0-50); Salicylate < 1.0 mg/dL (<20); Sodium 148 mmol/L (137-145); Total Protein 8.5 g/dL (6.3-8.2)
[2024-06-23 05:01] LABS: Creatine Kinase 95 U/L (55-170)
[2024-06-23 05:02] LABS: Ethanol (ETOH) 224 mg/dL; Lactate (Lactic Acid) 2.8 mmol/L (0.7-2.1)
[2024-06-23] MEDS: levETIRAcetam 1,000 MG in SODIUM CHLORIDE 0.9% 100 ML 440 MG IV (05:04)
[2024-06-23 05:09] LABS: Troponin I < 0.012 ng/mL (0.01-0.034)
[2024-06-23 05:09] LABS: Allen Test for ABG Passed? Positive; Base Excess ABG 1.3 mmol/L (-2-3); HCO3 ABG 30 mmol/L (23-27); Oxygen Saturation ABG 100 % (95-100); PCO2 ABG 61.3 mmHg (35-45); PO2 ABG 575 mmHg (80-100); TCO2 ABG 29 mmol/L (23-27)
[2024-06-23] MEDS: propofoL 200 MG/20 ML VIAL 50 MG IV (05:20)
[2024-06-23 05:44] LABS: Appearance Urine UA CLEAR; Bilirubin Urine UA NEGATIVE (NEGATIVE); Color Urine UA YELLOW; Glucose Urine UA NEGATIVE (Negative); Ketones Urine UA NEGATIVE (NEGATIVE); Leukocyte Esterase Urine UA NEGATIVE (NEGATIVE); Nitrite Urine UA NEGATIVE (Negative); Occult Blood Urine UA NEGATIVE (Negative); Protein Urine UA NEGATIVE (Negative); Urobilinogen Urine UA 0.2 E.U./dL (0.2); pH Urine UA 5.5 (4.5-8.0)
[2024-06-23 05:49] LABS: Fractionated Inspired Oxygen 100 %
[2024-06-23 05:50] LABS: Blood Gas Collection Site Left Radial; Delivery System vent; PEEP 5; Respiratory Rate 16; Tidal Volume 450
[2024-06-23 05:51] LABS: pH ABG 7.29 (7.35-7.45)
[2024-06-23 05:54] LABS: Urine Amphetamines Positive (Negative); Urine Barbiturates Negative (Negative); Urine Benzodiazepines Positive (Negative); Urine Cocaine Positive (Negative); Urine MDMA Positive (Negative); Urine Methadone Negative (Negative); Urine Methamphetamines Positive (Negative); Urine Opiates Negative (Negative); Urine Oxycodone Negative (Negative); Urine Phencyclidine Negative (Negative); Urine THC Negative (Negative); Urine Tricyclic Antidepressant Positive (Negative)
[2024-06-23 05:55] LABS: Bacteria Urine None Seen; RBC Urine None Seen (0-5/HPF); Squamous Epithelial Cell Urine 0-1 /HPF (0-5/HPF); Urine Volume 10mL (spun); WBC Urine None Seen (0-5/HPF)
[2024-06-23 05:56] LABS: Culture Indicated Urine Cult Not Indicated
[2024-06-23 06:04] LABS: Reflexed Lactate in 2 Hours Y
[2024-06-23 06:30] LABS: Allen Test for ABG Passed? Positive; Base Excess ABG 0.5 mmol/L (-2-3); Blood Gas Collection Site Left Radial; Delivery System Adult Ventilator; HCO3 ABG 28 mmol/L (23-27); Oxygen Saturation ABG 100 % (95-100); PCO2 ABG 52.4 mmHg (35-45); PEEP 5; PO2 ABG 199 mmHg (80-100); Respiratory Rate 16; TCO2 ABG 27 mmol/L (23-27); pH ABG 7.33 (7.35-7.45)
[2024-06-23] MEDS: SODIUM CHLORIDE 0.9% 1,000 ML 150 ML IV ×3 (06:39→18:51)
--- NOTE | 2024-06-23 06:42 | EKG_ITS ---
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
[2024-06-23 07:17] LABS: Lactate 2HR (Lactic Acid Rflx) 1.4 mmol/L (0.7-2.1)
--- NOTE | 2024-06-23 08:00 | PC.NURSE ---
Assumed care of pt at 0700. NG & temp sensing elder placed. Pt sedated. See vital signs for vent settings.
[2024-06-23] MEDS: propofoL 1,000 MG/100 ML VIAL 20.684 MG IV ×2 (09:31→18:50)
--- NOTE | 2024-06-23 09:41 | PC.NURSE ---
pt becoming slightly restless. Increased propofol and given prn dose of ativan. See pt MAR. VS Stable.
--- NOTE | 2024-06-23 11:46 | PM.HP.1 ---
History of Present Illness History of Present Illness Date Patient Seen: 06/23/24 Time Patient Seen: 11:46 Chief complaint: overdosing Narrative: 29-year-old male reported history of seizure disorder and myocardial infarction who was at a [employer] on and had foaming at the mouth and seizure like activity. On arrival his pupils were dilated and he was diaphoretic. He received 4 mg total of ativan with some slight relaxation but not much improvement, He was intubated in the emergency room for airway protection. UDS was positive for tricyclics, amphetamine and methamphetamine, MDMA, benzos, and cocaine. EtOH level was 224. He remains sedated on arrival to the ICU, no additional history is available. Labs show normal bilirubin, mild AST/ALT elevations. Hypernatremia with Na of 148. CK was 95, troponin normal. [facility] Medical History Seizure Anxiety Social History Smoking Status: Former smoker alcohol intake: current Meds Home Medications and Allergies Home Medications Medication Instructions Recorded Confirmed Type hydroxyzine HCl 25 mg tablet 25 mg PO BEDTIME #30 tabs 11/19/23 06/23/24 Rx clonazepam 2 mg tablet 1 - 2 mg (0.5 - 1 x 2 mg) PO BID 02/04/24 06/23/24 Rx PRN anxiety or insomnia #60 tabs propranolol 60 mg tablet 60 mg PO BID PRN for anxiety #180 05/03/24 06/23/24 Rx tabs Allergies Allergy/AdvReac Type Severity Reaction Status Date / Time shellfish derived Allergy Intermediate Verified 11/19/23 16:12 [SHELLFISH DERIVED] latex [LATEX] Allergy Unknown Verified 11/19/23 16:12 Penicillins [PENICILLINS] Allergy Unknown Verified 11/19/23 16:12 contrast AdvReac Mild Vomiting Uncoded 11/19/23 16:12 Review of Systems Review of Systems Narrative: unable to perform given patient's current mental status Exam Vital Signs (past 8 hours): - 06/23/24 04:25 06/23/24 04:43 06/23/24 04:45 Temperature Pulse Rate 119 H 114 H 106 H Respiratory Rate 15 21 15 Blood Pressure 147/84 H 146/82 H 150/103 H Pulse Oximetry 93 95 Oxygen Delivery Method Room Air Nasal Cannula Oxygen Flow Rate 4 06/23/24 05:00 06/23/24 05:26 06/23/24 05:27 Temperature 98.9 F Pulse Rate 87 88 Respiratory Rate 16 16 Blood Pressure Pulse Oximetry 99 99 Oxygen Delivery Method Mechanical Ventilation Oxygen Flow Rate 06/23/24 05:27 06/23/24 05:28 06/23/24 05:30 Temperature Pulse Rate 84 88 Respiratory Rate 16 16 Blood Pressure 143/92 H Pulse Oximetry 98 Oxygen Delivery Method Mechanical Ventilation Oxygen Flow Rate 06/23/24 05:30 06/23/24 05:32 06/23/24 05:34 Temperature Pulse Rate 91 H 92 H Respiratory Rate 16 17 Blood Pressure 154/97 H Pulse Oximetry 98 Oxygen Delivery Method Oxygen Flow Rate 06/23/24 05:36 06/23/24 05:38 06/23/24 05:39 Temperature Pulse Rate 92 H 92 H 92 H Respiratory Rate 16 16 Blood Pressure Pulse Oximetry 98 99 94 Oxygen Delivery Method Mechanical Ventilation Oxygen Flow Rate 06/23/24 05:39 06/23/24 05:40 06/23/24 05:42 Temperature Pulse Rate 92 H 93 H Respiratory Rate 16 16 Blood Pressure 150/99 H Pulse Oximetry 98 98 Oxygen Delivery Method Mechanical Ventilation Oxygen Flow Rate 06/23/24 05:44 06/23/24 05:46 06/23/24 05:48 Temperature Pulse Rate 92 H 92 H 92 H Respiratory Rate 16 16 16 Blood Pressure Pulse Oximetry 99 99 99 Oxygen Delivery Method Oxygen Flow Rate 06/23/24 05:50 06/23/24 05:52 06/23/24 05:54 Temperature Pulse Rate 92 H 92 H 92 H Respiratory Rate 16 16 16 Blood Pressure Pulse Oximetry 98 99 99 Oxygen Delivery Method Oxygen Flow Rate 06/23/24 05:56 06/23/24 05:58 06/23/24 06:00 Temperature Pulse Rate 91 H 93 H 92 H Respiratory Rate 16 16 16 Blood Pressure Pulse Oximetry 99 99 99 Oxygen Delivery Method Oxygen Flow Rate 06/23/24 06:00 06/23/24 06:02 06/23/24 06:04 Temperature Pulse Rate 93 H 93 H Respiratory Rate 12 15 Blood Pressure 148/99 H Pulse Oximetry 98 98 Oxygen Delivery Method Oxygen Flow Rate 06/23/24 06:06 06/23/24 06:08 06/23/24 06:10 Temperature Pulse Rate 90 91 H 91 H Respiratory Rate 17 16 16 Blood Pressure Pulse Oximetry 99 99 99 Oxygen Delivery Method Oxygen Flow Rate 06/23/24 06:12 06/23/24 06:14 06/23/24 06:16 Temperature Pulse Rate 92 H 90 91 H Respiratory Rate 16 16 15 Blood Pressure Pulse Oximetry 99 99 99 Oxygen Delivery Method Oxygen Flow Rate 06/23/24 06:18 06/23/24 06:20 06/23/24 06:20 Temperature Pulse Rate 91 H 91 H Respiratory Rate 16 17 Blood Pressure 138/86 Pulse Oximetry 98 98 Oxygen Delivery Method Oxygen Flow Rate 06/23/24 06:22 06/23/24 06:24 06/23/24 06:26 Temperature Pulse Rate 89 87 88 Respiratory Rate 17 16 16 Blood Pressure Pulse Oximetry 98 99 98 Oxygen Delivery Method Oxygen Flow Rate 06/23/24 06:28 06/23/24 06:30 06/23/24 06:32 Temperature Pulse Rate 88 92 H 91 H Respiratory Rate 16 16 17 Blood Pressure Pulse Oximetry 97 98 97 Oxygen Delivery Method Oxygen Flow Rate 06/23/24 06:34 06/23/24 06:36 06/23/24 06:38 Temperature Pulse Rate 91 H 91 H 89 Respiratory Rate 16 15 16 Blood Pressure Pulse Oximetry 97 97 96 Oxygen Delivery Method Oxygen Flow Rate 06/23/24 06:40 06/23/24 06:40 06/23/24 06:42 Temperature Pulse Rate 87 85 Respiratory Rate 16 16 Blood Pressure 138/88 Pulse Oximetry 96 96 Oxygen Delivery Method Oxygen Flow Rate 06/23/24 06:44 06/23/24 06:46 06/23/24 06:48 Temperature Pulse Rate 84 87 87 Respiratory Rate 15 16 11 L Blood Pressure Pulse Oximetry 96 96 96 Oxygen Delivery Method Mechanical Ventilation Oxygen Flow Rate 06/23/24 07:00 06/23/24 07:00 06/23/24 07:15 Temperature 98.1 F Pulse Rate 86 84 Respiratory Rate 16 14 Blood Pressure 138/89 Pulse Oximetry 98 98 Oxygen Delivery Method Mechanical Ventilation Oxygen Flow Rate 06/23/24 07:20 06/23/24 07:20 06/23/24 07:30 Temperature 96.8 F L Pulse Rate 85 82 Respiratory Rate 15 Blood Pressure 134/86 Pulse Oximetry 98 97 Oxygen Delivery Method Oxygen Flow Rate 06/23/24 07:45 06/23/24 07:45 06/23/24 08:00 Temperature 97.9 F Pulse Rate 83 Respiratory Rate 16 Blood Pressure 144/88 H 135/84 Pulse Oximetry 98 Oxygen Delivery Method Oxygen Flow Rate 06/23/24 08:00 06/23/24 08:15 06/23/24 08:15 Temperature 98.1 F 98.1 F 98.1 F Pulse Rate 86 85 Respiratory Rate 16 16 16 Blood Pressure 130/83 Pulse Oximetry 98 97 97 Oxygen Delivery Method Mechanical Ventilation Oxygen Flow Rate 06/23/24 08:30 06/23/24 08:30 06/23/24 08:45 Temperature 98.1 F 98.1 F Pulse Rate 83 83 Respiratory Rate 16 16 Blood Pressure 131/82 Pulse Oximetry 97 97 Oxygen Delivery Method Mechanical Ventilation Oxygen Flow Rate 06/23/24 08:45 06/23/24 09:00 06/23/24 09:00 Temperature 98.1 F Pulse Rate 82 Respiratory Rate 16 Blood Pressure 138/82 131/83 Pulse Oximetry 97 Oxygen Delivery Method Oxygen Flow Rate 06/23/24 09:15 06/23/24 09:15 06/23/24 09:30 Temperature 98.1 F 98.1 F Pulse Rate 79 77 Respiratory Rate 16 16 Blood Pressure 127/81 Pulse Oximetry 97 97 Oxygen Delivery Method Oxygen Flow Rate 06/23/24 09:30 06/23/24 09:45 06/23/24 09:45 Temperature 98.2 F Pulse Rate 79 Respiratory Rate 16 Blood Pressure 133/81 130/81 Pulse Oximetry 97 Oxygen Delivery Method Mechanical Ventilation Oxygen Flow Rate 06/23/24 10:00 06/23/24 10:00 06/23/24 10:15 Temperature 98.2 F 98.2 F Pulse Rate 80 79 Respiratory Rate 16 16 Blood Pressure 136/83 Pulse Oximetry 96 95 Oxygen Delivery Method Oxygen Flow Rate 06/23/24 10:15 06/23/24 10:30 06/23/24 10:30 Temperature 98.2 F Pulse Rate 79 Respiratory Rate 16 Blood Pressure 127/82 131/81 Pulse Oximetry 94 Oxygen Delivery Method Oxygen Flow Rate 06/23/24 10:45 06/23/24 10:45 06/23/24 11:00 Temperature 98.4 F 98.4 F Pulse Rate 78 79 Respiratory Rate 16 16 Blood Pressure 128/79 Pulse Oximetry 94 94 Oxygen Delivery Method Oxygen Flow Rate 06/23/24 11:00 Temperature Pulse Rate Respiratory Rate Blood Pressure 126/78 Pulse Oximetry Oxygen Delivery Method Oxygen Flow Rate Oxygen Delivery Method Mechanical Ventilation Oxygen Flow Rate 4 Narrative Exam Narrative: Gen: NAD, intubated, sedated CV: RRR no m/r/g Pulm: CTA b/l Abd: S ND Ext: No edema, extremities with tattoos. No erythema, warmth. Objective Labs 06/23/24 04:24 06/23/24 04:24 Labs: Laboratory Results - last 24 hr 06/23/24 06/23/24 06/23/24 04:24 04:50 04:50 WBC 11.5 H RBC 4.91 Hgb 15.9 Hct 47.0 MCV 95.8 MCH 32.5 MCHC 33.9 RDW 14.3 Plt Count 378 Neut % (Auto) 35.5 L Lymph % (Auto) 59.2 H Hinds % (Auto) 4.8 Eos % (Auto) 0.3 L Baso % (Auto) 0.2 Neut # (Auto) 4100 Lymph # (Auto) 6800 H Hinds # (Auto) 500 Eos # (Auto) 0 Baso # (Auto) 0 ABG Sample Site ABG pH ABG pCO2 ABG pO2 ABG HCO3 ABG Total CO2 ABG O2 Saturation ABG Base Excess Rufus Test Respiration Rate O2 Delivery Device FiO2 % Tidal Volume PEEP or CPAP Sodium 148 H Potassium 5.0 Chloride 110 H Carbon Dioxide 29 BUN 5 L Creatinine 0.81 Estimated GFR > 60 BUN/Creatinine Ratio 6.2 Glucose 108 H Lactate 2.8 H Calcium 9.3 Total Bilirubin 0.3 Conjugated Bilirubin 0.0 Unconjugated Bilirubin 0.1 AST 63 H ALT 53 H Alkaline Phosphatase 68 Total Creatine Kinase 95 Troponin I < 0.012 Total Protein 8.5 H Albumin 4.6 Globulin 3.9 Albumin/Globulin Ratio 1.2 Urine Color Yellow Urine Appearance Clear Urine pH 5.5 TNP Ur Specific [place] 1.020 Urine Protein Negative Urine Glucose (UA) Negative Urine Ketones Negative Urine Occult Blood Negative Urine Nitrate Negative Urine Bilirubin Negative Urine Urobilinogen 0.2 Ur Leukocyte Esterase Negative Urine RBC None seen Urine WBC None seen Ur Squamous Epith Cells 0-1 /hpf Urine Bacteria None seen Ur Culture Indicated? Cult not indicated Vol Urine Centrifuged 10ml (spun) Salicylates < 1.0 U Opiates 300ng/mL cut Negative Ur Oxycodone Screen Negative Urine Methadone Screen Negative Acetaminophen < 10 Ur Barbiturates Screen Negative U Tricyclic Antidepress Positive H Ur Phencyclidine Scrn Negative Ur Amphetamines Screen Positive H U Methamphetamines Scrn Positive H Ur MDMA Scrn (Ecstasy) Positive H U Benzodiazepines Scrn Positive H Urine Cocaine Screen Positive H U Marijuana (THC) Screen Negative Urine Specific [place] TNP Ethyl Alcohol 224 H Ur Creatinine TNP 06/23/24 06/23/24 06/23/24 05:04 06:24 06:55 WBC RBC Hgb Hct MCV MCH MCHC RDW Plt Count Neut % (Auto) Lymph % (Auto) Hind[place] % (Auto) Eos % (Auto) Baso % (Auto) Neut # (Auto) Lymph # (Auto) Hind[place] # (Auto) Eos # (Auto) Baso # (Auto) ABG Sample Site Left radial Left radial ABG pH 7.29 L* 7.33 L ABG pCO2 61.3 H* 52.4 H ABG pO2 575 H* 199 H ABG HCO3 30 H 28 H ABG Total CO2 29 H 27 ABG O2 Saturation 100 100 ABG Base Excess 1.3 0.5 Rufus Test Positive Positive Respiration Rate 16 16 O2 Delivery Device vent Adult ventilator FiO2 % 100 50.0 % Tidal Volume 450 PEEP or CPAP 5 5 Sodium Potassium Chloride Carbon Dioxide BUN Creatinine Estimated GFR BUN/Creatinine Ratio Glucose Lactate 1.4 Calcium Total Bilirubin Conjugated Bilirubin Unconjugated Bilirubin AST ALT Alkaline Phosphatase Total Creatine Kinase Troponin I Total Protein Albumin Globulin Albumin/Globulin Ratio Urine Color Urine Appearance Urine pH Ur Specific [place] Urine Protein Urine Glucose (UA) Urine Ketones Urine Occult Blood Urine Nitrate Urine Bilirubin Urine Urobilinogen Ur Leukocyte Esterase Urine RBC Urine WBC Ur Squamous Epith Cells Urine Bacteria Ur Culture Indicated? Vol Urine Centrifuged Salicylates U Opiates 300ng/mL cut Ur Oxycodone Screen Urine Methadone Screen Acetaminophen Ur Barbiturates Screen U Tricyclic Antidepress Ur Phencyclidine Scrn Ur Amphetamines Screen U Methamphetamines Scrn Ur MDMA Scrn (Ecstasy) U Benzodiazepines Scrn Urine Cocaine Screen U Marijuana (THC) Screen Urine Specific [place] Ethyl Alcohol Ur Creatinine Assessment & Plan Assessment & Plan narrative: 1. Toxic encephalopathy due to #3 - UDS positive for multiple substances, including tricyclic antidepressants, amphetamines and methamphetamines, MDMA, cocaine, and benzodiazepines. Alcohol level was also 224. - continue fentanyl and propofol for sedation, continue IV fluids - sedation vacation tomorrow AM to assess ability for extubation - CT head without contrast negative - if any seizure activity transfer for neurology - consider tele-cook tortilla consultation depending on clinical course. - unclear EtOH history, unclear if withdrawal is another possibility. 2. History of seizure disorder - ativan prn - continue keppra 500 mg IV BID for now given unclear presentation. 3. Polysubstance overdose 4. Hypernatremia - continue IV fluids, repeat BMP this afternoon to trend. Code: Full, surrogate is not known at this time. DVT: Lovenox daily I have utilized all available immediate resources to obtain, update, or review the patient's current medications. Dispo: patient admitted under inpatient status. to the ICU. Additional history obtained via discussions with the ER provider. These discussions contributed to the creation of the above assessment and plan. I have reviewed patient's presenting documentation, labs, and imaging personally. I spent 45 minutes providing critical care management this patient. This excludes time spent in performing separately billed procedures. Time-Based Coding :: [TOTAL MINUTES] spent with patient and on the chart (including review of chart, obtaining history, exam, reviewing outside data, placing orders, documenting exam and treatment plan, and counseling patient) on [DATE].
[2024-06-23] MEDS: fentaNYL 1,000 MCG in DEXTROSE 5% IN WATER 230 ML 15.082 MCG IV (12:04)
[2024-06-23] MEDS: ENOXAPARIN 40 MG/0.4 ML SYRINGE SUBCUT (12:04)
[2024-06-23] MEDS: CHLORHEXIDINE GLUCONATE 15 ML CUP PO ×2 (12:04→17:04)
[2024-06-23] MEDS: propofoL 1,000 MG/100 ML VIAL 25.855 MG IV ×3 (12:04→22:33)
--- NOTE | 2024-06-23 12:15 | PC.NURSE ---
Addendum entered by Yana Oliver R.N. 06/23/24 13:44: Campbell from poison control called and was updated on pt status. Original Note: Admit Note Patient arrived to room 230 via stretcher at approx 1130 from ER. RT and [employer]GER present for transfer via slider board to bed. Pt is sedated on propofol gtt, at RASS -3 at this time, pupils equal and reactive. Pt placed on vent by RT. 25% FIO2 with SpO2 98%, HR SR in the 70s, BP 119/74. Restraints in place to BUEs due to intermittent reaching for ET tube and lines. Vargas catheter in place and draining clear yellow urine. NG tube to LIS. Girlfriend Emilio at bedside.
[2024-06-23 13:39] LABS: MRSA (Nasal) PCR NOT DETECTED (Not Detect)
--- NOTE | 2024-06-23 14:37 | PC.NURSE ---
1430--rec'd report and assumed care of pt; pt sedated and resting quietly w/ girlfriend at bedside
[2024-06-23] MEDS: levETIRAcetam 500 MG in SODIUM CHLORIDE 0.9% 100 ML 420 MG IV (16:03)
[2024-06-23 16:14] LABS: BUN Creatinine Ratio 7.7 (6-22); Blood Urea Nitrogen 5 mg/dL (9-20); Carbon Dioxide 21 mmol/L (22-32); Chloride 112 mmol/L (98-107); Estimated Glomerular Filt Rate > 60 mL/min (>60); Glucose 80 mg/dL (70-100); HEMOLYSIS < 15 (0-50); Sodium 142 mmol/L (137-145)
[2024-06-23] MEDS: POTASSIUM CHLORIDE IN WATER 10 MEQ/100 ML PIGGYBACK 100 MEQ IV ×4 (17:05→20:40)
--- NOTE | 2024-06-23 20:14 | PM.CN.EICU ---
History of Present Illness Consult details IF CAMERA ACTIVATED, patient seen via real-time interactive audiovisual communication: Camera activated Chief complaint: overdosing Reason for consult: Respiratory failure Consent obtained for tele-payroll services analyst care: Yes Patient Location: ICU Provider location (State): [place] Other participants/roles: Bedside RN Lee Narrative: Patient is a 29 year old male with history of seizure not on meds who presents with seizure and was emergently intubated. Utox positive for methamphetamine, NDMA, benzo, and cocaine. CTH negative. Admitted to ICU for further management. Tele payroll services analyst consulted for further management. Currently sedated with propofol 50 mcg and fentanyl 0.9 mcg. PFSH Medical History Seizure Anxiety Social History Smoking Status: Former smoker alcohol intake: current Current Medications Current Medications Medications: Home Medications hydroxyzine HCl 25 mg tablet 25 mg PO BEDTIME #30 tabs 11/19/23 [Rx Confirmed 06/23/24] clonazepam 2 mg tablet 1 - 2 mg (0.5 - 1 x 2 mg) PO BID PRN anxiety or insomnia #60 tabs 02/04/24 [Rx Confirmed 06/23/24] propranolol 60 mg tablet 60 mg PO BID PRN for anxiety #180 tabs 05/03/24 [Rx Confirmed 06/23/24] Visit Medications (administered) Generic Name Dose Route Start Last Admin Trade Name Freq PRN Reason Stop Dose Admin Chlorhexidine Gluconate 15 ml 06/23/24 06:00 06/23/24 17:04 Chlorhexidine Gluconate 15 Ml Cup PO 15 ml Q6HR NILSA Administration Enoxaparin Sodium 40 mg 06/23/24 11:39 06/23/24 12:04 Enoxaparin 40 Mg/0.4 Ml Syringe SUBCUT 40 mg DAILY NILSA Administration Propofol 1,000 mg in 100 mls @ 2.585 mls/hr 06/23/24 04:49 06/23/24 19:15 Diprivan IV 50 mcg/kg/min TITRATE NILSA 25.855 mls/hr Titration Protocol 5 MCG/KG/MIN Sodium Chloride 1,000 mls @ 150 mls/hr 06/23/24 06:30 06/23/24 18:51 Normal Saline 0.9% IV 150 mls/hr CONT NILSA Administration Fentanyl 1,000 mcg/ Dextrose 250 mls @ 15.082 mls/hr 06/23/24 11:39 06/23/24 19:57 IV 0.8 mcg/kg/hr TITRATE NILSA 17.237 mls/hr Titration Protocol 0.7 MCG/KG/HR Levetiracetam 500 mg/ Sodium 105 mls @ 420 mls/hr 06/23/24 16:00 06/23/24 17:05 Chloride IV Infused Q12H NILSA Infusion POTASSIUM CHLORIDE IN WATER 10 meq in 100 mls @ 100 mls/hr 06/23/24 17:00 06/23/24 18:51 Potassium Cl 10 Meq/100 Ml Zena IV 06/23/24 20:59 100 mls/hr Q1H NILSA Administration Exam Vital Signs (past 8 hours): - 06/23/24 12:15 06/23/24 12:23 06/23/24 12:30 Temperature 98.1 F 97.9 F Pulse Rate 75 75 Respiratory Rate 16 16 Blood Pressure Pulse Oximetry 98 98 Oxygen Delivery Method Mechanical Ventilation 06/23/24 12:30 06/23/24 12:45 06/23/24 13:00 Temperature 98.1 F 98.1 F Pulse Rate 74 73 Respiratory Rate 16 16 Blood Pressure 121/74 Pulse Oximetry 98 97 Oxygen Delivery Method 06/23/24 13:00 06/23/24 13:15 06/23/24 13:30 Temperature 98.1 F Pulse Rate 74 Respiratory Rate 16 Blood Pressure 120/75 120/74 Pulse Oximetry 97 Oxygen Delivery Method 06/23/24 13:30 06/23/24 13:45 06/23/24 14:00 Temperature 98.1 F 98.2 F 98.2 F Pulse Rate 74 73 73 Respiratory Rate 16 16 16 Blood Pressure Pulse Oximetry 97 97 97 Oxygen Delivery Method 06/23/24 14:00 06/23/24 14:15 06/23/24 14:30 Temperature 98.2 F 98.2 F Pulse Rate 73 73 Respiratory Rate 16 16 Blood Pressure 122/74 Pulse Oximetry 97 97 Oxygen Delivery Method 06/23/24 14:30 06/23/24 14:45 06/23/24 15:00 Temperature 98.4 F 98.4 F Pulse Rate 72 72 Respiratory Rate 16 16 Blood Pressure 122/75 Pulse Oximetry 97 97 Oxygen Delivery Method 06/23/24 15:00 06/23/24 15:15 06/23/24 15:30 Temperature 98.4 F 98.4 F Pulse Rate 74 71 Respiratory Rate 16 16 Blood Pressure 122/74 Pulse Oximetry 97 97 Oxygen Delivery Method 06/23/24 15:30 06/23/24 15:45 06/23/24 16:00 Temperature 98.6 F Pulse Rate 74 Respiratory Rate 16 Blood Pressure 123/75 127/76 Pulse Oximetry 97 Oxygen Delivery Method 06/23/24 16:00 06/23/24 16:15 06/23/24 16:30 Temperature 98.8 F 98.8 F 98.8 F Pulse Rate 72 73 73 Respiratory Rate 16 16 16 Blood Pressure Pulse Oximetry 97 97 97 Oxygen Delivery Method 06/23/24 16:30 06/23/24 16:45 06/23/24 17:00 Temperature 99.0 F 99.0 F Pulse Rate 73 73 Respiratory Rate 16 16 Blood Pressure 129/78 Pulse Oximetry 97 97 Oxygen Delivery Method 06/23/24 17:00 06/23/24 17:15 06/23/24 17:30 Temperature 99.0 F Pulse Rate 74 Respiratory Rate 16 Blood Pressure 129/78 128/78 Pulse Oximetry 97 Oxygen Delivery Method 06/23/24 17:30 06/23/24 17:45 06/23/24 18:00 Temperature 99.1 F 99.1 F 99.1 F Pulse Rate 72 73 74 Respiratory Rate 16 16 16 Blood Pressure Pulse Oximetry 97 97 97 Oxygen Delivery Method 06/23/24 18:00 Temperature Pulse Rate Respiratory Rate Blood Pressure 125/79 Pulse Oximetry Oxygen Delivery Method Oxygen Delivery Method Mechanical Ventilation Oxygen Flow Rate 4 Objective Labs 06/23/24 04:24 06/23/24 16:00 Labs: Laboratory Results - last 24 hr 06/23/24 06/23/24 06/23/24 04:24 04:50 04:50 WBC 11.5 H RBC 4.91 Hgb 15.9 Hct 47.0 MCV 95.8 MCH 32.5 MCHC 33.9 RDW 14.3 Plt Count 378 Neut % (Auto) 35.5 L Lymph % (Auto) 59.2 H [place] % (Auto) 4.8 Eos % (Auto) 0.3 L Baso % (Auto) 0.2 Neut # (Auto) 4100 Lymph # (Auto) 6800 H [place] # (Auto) 500 Eos # (Auto) 0 Baso # (Auto) 0 ABG Sample Site ABG pH ABG pCO2 ABG pO2 ABG HCO3 ABG Total CO2 ABG O2 Saturation ABG Base Excess Rufus Test Respiration Rate O2 Delivery Device FiO2 % Tidal Volume PEEP or CPAP Sodium 148 H Potassium 5.0 Chloride 110 H Carbon Dioxide 29 BUN 5 L Creatinine 0.81 Estimated GFR > 60 BUN/Creatinine Ratio 6.2 Glucose 108 H Lactate 2.8 H Calcium 9.3 Total Bilirubin 0.3 Conjugated Bilirubin 0.0 Unconjugated Bilirubin 0.1 AST 63 H ALT 53 H Alkaline Phosphatase 68 Total Creatine Kinase 95 Troponin I < 0.012 Total Protein 8.5 H Albumin 4.6 Globulin 3.9 Albumin/Globulin Ratio 1.2 Urine Color Yellow Urine Appearance Clear Urine pH 5.5 TNP Ur Specific [place] 1.020 Urine Protein Negative Urine Glucose (UA) Negative Urine Ketones Negative Urine Occult Blood Negative Urine Nitrate Negative Urine Bilirubin Negative Urine Urobilinogen 0.2 Ur Leukocyte Esterase Negative Urine RBC None seen Urine WBC None seen Ur Squamous Epith Cells 0-1 /hpf Urine Bacteria None seen Ur Culture Indicated? Cult not indicated Vol Urine Centrifuged 10ml (spun) Nasal Screen MRSA (PCR) Salicylates < 1.0 U Opiates 300ng/mL cut Negative Ur Oxycodone Screen Negative Urine Methadone Screen Negative Acetaminophen < 10 Ur Barbiturates Screen Negative U Tricyclic Antidepress Positive H Ur Phencyclidine Scrn Negative Ur Amphetamines Screen Positive H U Methamphetamines Scrn Positive H Ur MDMA Scrn (Ecstasy) Positive H U Benzodiazepines Scrn Positive H Urine Cocaine Screen Positive H U Marijuana (THC) Screen Negative Urine Specific [place] TNP Ethyl Alcohol 224 H Ur Creatinine TNP 06/23/24 06/23/24 06/23/24 05:04 06:24 06:55 WBC RBC Hgb Hct MCV MCH MCHC RDW Plt Count Neut % (Auto) Lymph % (Auto) [place] % (Auto) Eos % (Auto) Baso % (Auto) Neut # (Auto) Lymph # (Auto) [place] # (Auto) Eos # (Auto) Baso # (Auto) ABG Sample Site Left radial Left radial ABG pH 7.29 L* 7.33 L ABG pCO2 61.3 H* 52.4 H ABG pO2 575 H* 199 H ABG HCO3 30 H 28 H ABG Total CO2 29 H 27 ABG O2 Saturation 100 100 ABG Base Excess 1.3 0.5 Rufus Test Positive Positive Respiration Rate 16 16 O2 Delivery Device vent Adult ventilator FiO2 % 100 50.0 % Tidal Volume 450 PEEP or CPAP 5 5 Sodium Potassium Chloride Carbon Dioxide BUN Creatinine Estimated GFR BUN/Creatinine Ratio Glucose Lactate 1.4 Calcium Total Bilirubin Conjugated Bilirubin Unconjugated Bilirubin AST ALT Alkaline Phosphatase Total Creatine Kinase Troponin I Total Protein Albumin Globulin Albumin/Globulin Ratio Urine Color Urine Appearance Urine pH Ur Specific [place] Urine Protein Urine Glucose (UA) Urine Ketones Urine Occult Blood Urine Nitrate Urine Bilirubin Urine Urobilinogen Ur Leukocyte Esterase Urine RBC Urine WBC Ur Squamous Epith Cells Urine Bacteria Ur Culture Indicated? Vol Urine Centrifuged Nasal Screen MRSA (PCR) Salicylates U Opiates 300ng/mL cut Ur Oxycodone Screen Urine Methadone Screen Acetaminophen Ur Barbiturates Screen U Tricyclic Antidepress Ur Phencyclidine Scrn Ur Amphetamines Screen U Methamphetamines Scrn Ur MDMA Scrn (Ecstasy) U Benzodiazepines Scrn Urine Cocaine Screen U Marijuana (THC) Screen Urine Specific [place] Ethyl Alcohol Ur Creatinine 06/23/24 06/23/24 11:50 16:00 WBC RBC Hgb Hct MCV MCH MCHC RDW Plt Count Neut % (Auto) Lymph % (Auto) [place] % (Auto) Eos % (Auto) Baso % (Auto) Neut # (Auto) Lymph # (Auto) [place] # (Auto) Eos # (Auto) Baso # (Auto) ABG Sample Site ABG pH ABG pCO2 ABG pO2 ABG HCO3 ABG Total CO2 ABG O2 Saturation ABG Base Excess Rufus Test Respiration Rate O2 Delivery Device FiO2 % [place] Volume PEEP or CPAP Sodium 142 Potassium 3.0 L D Chloride 112 H Carbon Dioxide 21 L BUN 5 L Creatinine 0.65 L Estimated GFR > 60 BUN/Creatinine Ratio 7.7 Glucose 80 Lactate Calcium 8.0 L Total Bilirubin Conjugated Bilirubin Unconjugated Bilirubin AST ALT Alkaline Phosphatase Total Creatine Kinase Troponin I Total Protein Albumin Globulin Albumin/Globulin Ratio Urine Color Urine Appearance Urine pH Ur Specific [place] Urine Protein Urine Glucose (UA) Urine Ketones Urine Occult Blood Urine Nitrate Urine Bilirubin Urine Urobilinogen Ur Leukocyte Esterase Urine RBC Urine WBC Ur Squamous Epith Cells Urine Bacteria Ur Culture Indicated? Vol Urine Centrifuged Nasal Screen MRSA (PCR) Not detected Salicylates U Opiates 300ng/mL cut Ur Oxycodone Screen Urine Methadone Screen Acetaminophen Ur Barbiturates Screen U Tricyclic Antidepress Ur Phencyclidine Scrn Ur Amphetamines Screen U Methamphetamines Scrn Ur MDMA Scrn (Ecstasy) U Benzodiazepines Scrn Urine Cocaine Screen U Marijuana (THC) Screen Urine Specific [place] Ethyl Alcohol Ur Creatinine Assessment & Plan Assessment & Plan narrative: NEURO: # Acute encephalopathy -- CTH negative -- Secondary to seizure from ? noncompliance -- On propofol gtt -- Added precedex gtt -- DAily SAT -- If continues to remain encephalopathic then patient will need transfer to tertiary care for EEG # Alcohol abuse -- Start thiamine, folic acid, and MTV -- Monitor closely for withdrawals RESP: # Acute respiratory failure -- Intubated and sedated -- Meeting goals of oxygenation and ventilation -- Daily SAT and SBT -- HOB elevation -- Aspiration precaution -- Goal SpO2 > 90% CVS: -- MAP goal > 65 ENDO: -- GOal BS < 180 VTE: Lovenox SQ SUP: Pepcid D/w bedside RN. Time-Based Coding :: [TOTAL MINUTES] spent with patient and on the chart (including review of chart, obtaining history, exam, reviewing outside data, placing orders, documenting exam and treatment plan, and counseling patient) on [DATE].
[2024-06-23] MEDS: dexmedeTOMIDine in 0.9 % NaCL 400 MCG/100 ML PLAST..BAG IV (20:40)
[2024-06-23] MEDS: FAMOTIDINE 20 MG/2 ML VIAL IV (20:42)
[2024-06-24] VITALS (113 sets, daily range): BP systolic 125–176; BP diastolic 76–116; PULSE 53–82; RESP 16–29; TEMP 31.6–39.2; O2SAT 86–98
[2024-06-24] MEDS: ACETAMINOPHEN IV 1,000 MG/100 ML VIAL 400 MG IV (00:20)
[2024-06-24] MEDS: CHLORHEXIDINE GLUCONATE 15 ML CUP PO ×4 (00:21→17:58)
[2024-06-24] MEDS: SODIUM CHLORIDE 0.9% 1,000 ML 150 ML IV ×3 (01:47→20:15)
[2024-06-24] MEDS: propofoL 1,000 MG/100 ML VIAL 23.269 MG IV (02:17)
[2024-06-24] MEDS: fentaNYL 1,000 MCG in DEXTROSE 5% IN WATER 230 ML 19.391 MCG IV (02:19)
[2024-06-24] MEDS: levETIRAcetam 500 MG in SODIUM CHLORIDE 0.9% 100 ML 420 MG IV ×2 (03:21→15:29)
[2024-06-24] MEDS: propofoL 1,000 MG/100 ML VIAL 25.855 MG IV (05:38)
[2024-06-24 06:28] LABS: Alanine Aminotransferase 50 IU/L (<50); Albumin 3.7 g/dL (3.5-5.0); Albumin Globulin Ratio 1.1 (1.0-2.8); Alkaline Phosphatase 75 U/L (38-126); Aspartate Aminotransferase 67 IU/L (17-59); BUN Creatinine Ratio 6.3 (6-22); Bilirubin Total 1.1 mg/dL (0.2-1.3); Blood Urea Nitrogen 6 mg/dL (9-20); Calcium 8.2 mg/dL (8.4-10.2); Carbon Dioxide 22 mmol/L (22-32); Chloride 110 mmol/L (98-107); Estimated Glomerular Filt Rate > 60 mL/min (>60); Globulin 3.3 g/dL (1.7-4.1); Glucose 77 mg/dL (70-100); HEMOLYSIS 17 (0-50); Potassium 3.2 mmol/L (3.4-5.1); Sodium 142 mmol/L (137-145)
[2024-06-24 06:31] LABS: Magnesium 1.1 mg/dL (1.6-2.3)
--- NOTE | 2024-06-24 07:51 | PC.NURSE ---
Addendum entered by Debi Love R.N. 06/24/24 18:55: Removed both of patient's rings, placed in specimen cup and mother has the cup, ring on right hand cut into finger, cleaned and placed a bandaid on finger. Care on going Addendum entered by Debi Love R.N. 06/24/24 14:40: Pt mother at bedside, very upset that this nurse can not give out information without permission from patient (who remains intubated and sedated), mother offered to show drivers license and states that her parents live close by, this nurse explained that without permission from patient I can not give out patient information regarding patient's status and care, patient's girlfriend is at bedside and has information regarding pts care. No further needs at this time. Addendum entered by Debi Love R.N. 06/24/24 13:09: Pt failed SBT due to agitation and not following commands, Dr Landry ICU tele-police manager recommend titrating Precedex to 1.5 mcg while working on titrating down Propofal and Fentanyl gtts (see mar for documentation). Poison control updated on vitals and status of patient, recommendations were to discontinue fentanyl gtt due to interactions with the cocaine pt tested positive for causing seratonin syndrome causing fever. See emar for fentanyl discontinued time. Dr Carmona updated on pt BP 155/105, will contact Dr Landry for recommendations, no new orders at this time. Care ongoing Addendum entered by Debi Love R.N. 06/24/24 08:27: gtts halved again, will leave precedex running during sedation vacation for possible agitation. No responses to medication reduction as of yet, will continue to monitor, care on going Original Note: Sedation vacation initiated at 0744, all gtts were reduced by half (see emar for titrations), vent setting remain VT 520 FiO2 21 RR 16 PEEP 5. RASS -4, RT aware sedation vacation has started.
--- NOTE | 2024-06-24 08:27 | P.PN_ITS ---
Subjective Subjective Interval history: Summary: 29-year-old male reported history of seizure disorder and myocardial infarction who was at a libertarian on and had foaming at the mouth and seizure like activity. On arrival his pupils were dilated and he was diaphoretic. He received 4 mg total of ativan with some slight relaxation but not much improvement, He was intubated in the emergency room for airway protection. UDS was positive for tricyclics, amphetamine and methamphetamine, MDMA, benzos, and cocaine. EtOH level was 224. He remains sedated on arrival to the ICU, no additional history is available. Labs show normal bilirubin, mild AST/ALT elevations. Hypernatremia with Na of 148. CK was 95, troponin normal. S: Intubated, narrative not obtainable. Morning update: He failed his breathing trial with tachycardia in anxiety as well as tachypnea. He was placed back on sedation. He also had a fever overnight. Exam Vital Signs (past 8 hours): - 06/24/24 00:30 06/24/24 00:30 06/24/24 00:45 Temperature 101.5 F H 101.5 F H Pulse Rate 71 71 Respiratory Rate 16 16 Blood Pressure 152/98 H Pulse Oximetry 94 95 Oxygen Delivery Method Oxygen Flow Rate 06/24/24 01:00 06/24/24 01:00 06/24/24 01:15 Temperature 101.5 F H 101.5 F H Pulse Rate 71 70 Respiratory Rate 16 16 Blood Pressure 146/91 H Pulse Oximetry 95 95 Oxygen Delivery Method Oxygen Flow Rate 0 06/24/24 01:30 06/24/24 01:30 06/24/24 01:45 Temperature 101.5 F H 101.5 F H Pulse Rate 71 70 Respiratory Rate 16 16 Blood Pressure 146/92 H Pulse Oximetry 95 95 Oxygen Delivery Method Oxygen Flow Rate 06/24/24 02:00 06/24/24 02:00 06/24/24 02:15 Temperature 101.5 F H 101.5 F H Pulse Rate 69 64 Respiratory Rate 16 16 Blood Pressure 148/92 H Pulse Oximetry 95 96 Oxygen Delivery Method Oxygen Flow Rate 06/24/24 02:30 06/24/24 02:30 06/24/24 02:45 Temperature 101.3 F H 101.3 F H Pulse Rate 62 60 Respiratory Rate 16 16 Blood Pressure 145/92 H Pulse Oximetry 96 96 Oxygen Delivery Method Oxygen Flow Rate 06/24/24 03:00 06/24/24 03:00 06/24/24 03:14 Temperature 101.3 F H 102.6 F H Pulse Rate 61 Respiratory Rate 16 Blood Pressure 150/98 H Pulse Oximetry 96 Oxygen Delivery Method Oxygen Flow Rate 06/24/24 03:15 06/24/24 03:30 06/24/24 03:30 Temperature 101.5 F H 101.5 F H Pulse Rate 61 67 Respiratory Rate 16 19 Blood Pressure 151/98 H Pulse Oximetry 97 95 Oxygen Delivery Method Oxygen Flow Rate 06/24/24 03:44 06/24/24 03:45 06/24/24 03:59 Temperature 100.9 F H 101.5 F H 100.0 F H Pulse Rate 65 Respiratory Rate 17 Blood Pressure Pulse Oximetry 93 Oxygen Delivery Method Oxygen Flow Rate 0 06/24/24 03:59 06/24/24 03:59 06/24/24 04:00 Temperature 99.9 F H Pulse Rate 65 Respiratory Rate 18 Blood Pressure 160/100 H Pulse Oximetry 88 L Oxygen Delivery Method Mechanical Ventilation Oxygen Flow Rate 06/24/24 04:00 06/24/24 04:00 06/24/24 04:15 Temperature 99.7 F H 97.5 F L Pulse Rate 67 61 Respiratory Rate 16 16 Blood Pressure 166/106 H Pulse Oximetry 94 95 Oxygen Delivery Method Oxygen Flow Rate 0 0 06/24/24 04:30 06/24/24 04:30 06/24/24 04:45 Temperature 101.3 F H 95.7 F L Pulse Rate 60 59 L Respiratory Rate 16 16 Blood Pressure 150/97 H Pulse Oximetry 95 95 Oxygen Delivery Method Oxygen Flow Rate 0 0 06/24/24 05:00 06/24/24 05:00 06/24/24 05:15 Temperature 88.9 F L 90.5 F L Pulse Rate 58 L 58 L Respiratory Rate 16 16 Blood Pressure 154/101 H Pulse Oximetry 96 96 Oxygen Delivery Method Oxygen Flow Rate 06/24/24 05:30 06/24/24 05:30 06/24/24 05:33 Temperature 101.3 F H 101.3 F H Pulse Rate 56 L 57 L Respiratory Rate 16 16 Blood Pressure 157/105 H Pulse Oximetry 95 95 Oxygen Delivery Method Oxygen Flow Rate 06/24/24 05:33 06/24/24 05:36 06/24/24 05:36 Temperature 101.3 F H Pulse Rate 57 L Respiratory Rate 16 Blood Pressure 159/106 H 170/112 H Pulse Oximetry 95 Oxygen Delivery Method Oxygen Flow Rate 06/24/24 05:38 06/24/24 05:38 06/24/24 05:40 Temperature 101.3 F H 101.3 F H Pulse Rate 57 L 57 L Respiratory Rate 16 16 Blood Pressure 176/116 H Pulse Oximetry 95 95 Oxygen Delivery Method Oxygen Flow Rate 0 06/24/24 05:40 06/24/24 05:45 06/24/24 05:45 Temperature 99.7 F H 101.3 F H Pulse Rate 56 L Respiratory Rate 16 Blood Pressure 164/106 H Pulse Oximetry 95 Oxygen Delivery Method Oxygen Flow Rate 06/24/24 06:00 06/24/24 06:15 06/24/24 06:15 Temperature 101.3 F H 101.1 F H Pulse Rate 57 L 56 L Respiratory Rate 16 16 Blood Pressure 162/105 H Pulse Oximetry 95 95 Oxygen Delivery Method Oxygen Flow Rate 0 0 06/24/24 06:30 06/24/24 06:45 06/24/24 07:00 Temperature 101.1 F H 100.7 F H 101.1 F H Pulse Rate 56 L 57 L 59 L Respiratory Rate 16 16 16 Blood Pressure Pulse Oximetry 94 94 94 Oxygen Delivery Method Oxygen Flow Rate 0 0 06/24/24 07:00 06/24/24 07:15 06/24/24 07:30 Temperature 101.1 F H Pulse Rate 59 L Respiratory Rate 16 Blood Pressure 159/104 H 155/103 H Pulse Oximetry 94 Oxygen Delivery Method Oxygen Flow Rate 06/24/24 07:30 06/24/24 07:45 06/24/24 08:00 Temperature 101.3 F H 101.3 F H 101.5 F H Pulse Rate 60 61 59 L Respiratory Rate 16 16 16 Blood Pressure Pulse Oximetry 93 93 93 Oxygen Delivery Method Oxygen Flow Rate 06/24/24 08:00 06/24/24 08:00 Temperature Pulse Rate Respiratory Rate Blood Pressure 157/101 H Pulse Oximetry Oxygen Delivery Method Mechanical Ventilation Oxygen Flow Rate Oxygen Delivery Method Mechanical Ventilation Oxygen Flow Rate 0 Narrative Exam Narrative: Intubated, sedated. Lungs are clear, normal rate and effort. Heart is regular, no murmur gallop or rub. Abdomen is soft, non distended. Extremities are free of edema. Objective Labs 06/23/24 04:24 06/24/24 05:15 Labs: Laboratory Results - last 24 hr 06/23/24 06/23/24 06/24/24 11:50 16:00 05:15 Sodium 142 142 Potassium 3.0 L D 3.2 L Chloride 112 H 110 H Carbon Dioxide 21 L 22 BUN 5 L 6 L Creatinine 0.65 L 0.95 Estimated GFR > 60 > 60 BUN/Creatinine Ratio 7.7 6.3 Glucose 80 77 Calcium 8.0 L 8.2 L Magnesium 1.1 L Total Bilirubin 1.1 AST 67 H ALT 50 H Alkaline Phosphatase 75 Total Protein 7.0 Albumin 3.7 Globulin 3.3 Albumin/Globulin Ratio 1.1 Nasal Screen MRSA (PCR) Not detected [facility], [facility] Medical History Seizure Anxiety Social History Smoking Status: Former smoker alcohol intake: current Assessment & Plan Assessment & Plan narrative: 1. Toxic encephalopathy due to #3, present on admission and improved. - UDS positive for multiple substances, including tricyclic antidepressants, amphetamines and methamphetamines, MDMA, cocaine, and benzodiazepines. Alcohol level was also 224. - continue fentanyl and propofol for sedation, continue IV fluids - sedation vacation tomorrow AM to assess ability for extubation - CT head without contrast negative - if any seizure activity transfer for neurology - consider tele-[employer] operations consultant consultation depending on clinical course. - unclear EtOH history, unclear if withdrawal is another possibility. 2. History of seizure disorder, present on admission and stable. - ativan prn - continue keppra 500 mg IV BID for now given unclear presentation. 3. Polysubstance overdose, present on admission and improved. 4. Hypernatremia, present on admission and improved. - continue IV fluids, repeat BMP this afternoon to trend. 5. Fever and probable aspiration pneumonia, new and active. Plan: -DVT and GI prophylaxis. -failed his sedation vacation and breathing trial, we will place back on sedation and anticipate mechanical ventilation for an additional 24 hours with another attempt in the morning. -start antibiotics after cultures obtained, cefepime and Flagyl given allergy to penicillin. Code: Full, surrogate is not known at this time. DVT: Lovenox daily I have utilized all available immediate resources to obtain, update, or review the patient's current medications. Dispo: patient admitted under inpatient status. to the ICU. Time-Based Coding :: [TOTAL MINUTES] spent with patient and on the chart (including review of chart, obtaining history, exam, reviewing outside data, placing orders, documenting exam and treatment plan, and counseling patient) on [DATE]. Quality VTE Deep Vein Thrombosis/Pulmonary Embolism Present on Admission: No
[2024-06-24] MEDS: FOLIC ACID 1 MG TABLET PO (08:50)
[2024-06-24] MEDS: THIAMINE 100 MG in SODIUM CHLORIDE 0.9% 100 ML 404 MG IV (08:50)
[2024-06-24] MEDS: ENOXAPARIN 40 MG/0.4 ML SYRINGE SUBCUT (08:50)
[2024-06-24] MEDS: FAMOTIDINE 20 MG/2 ML VIAL IV ×2 (08:50→20:15)
[2024-06-24] MEDS: MULTIVITAMIN 1 TABLET 1 TAB PO (08:50)
[2024-06-24] MEDS: SODIUM CHLORIDE 0.9% FLUSH 10 ML IV ×2 (08:51→20:19)
[2024-06-24] MEDS: dexmedeTOMIDine in 0.9 % NaCL 400 MCG/100 ML PLAST..BAG 31.5 MCG IV ×3 (09:38→15:29)
--- NOTE | 2024-06-24 09:50 | PM.PN.EICU ---
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 Assessment & Plan narrative: NEURO: # Acute encephalopathy -- CTH negative -- Slow wean off precedex gtt -- If continues to remain encephalopathic then patient will need transfer to tertiary care for EEG # Alcohol abuse -- thiamine, folic acid, and MTV -- Monitor closely for withdrawals -- Electrolyte replacement ( K & Mg getting replaced) RESP: # Acute respiratory failure -- Intubated and sedated -- Meeting goals of oxygenation and ventilation -- Daily SAT and SBT -- HOB elevation -- Aspiration precaution -- Goal SpO2 > 90% CVS: -- MAP goal > 65 ENDO: -- GOal BS < 180 VTE: Lovenox SQ SUP: Pepcid D/w bedside RN. Current Medications Current Medications Medications: Home Medications hydroxyzine HCl 25 mg tablet 25 mg PO BEDTIME #30 tabs 11/19/23 [Rx Confirmed 06/23/24] clonazepam 2 mg tablet 1 - 2 mg (0.5 - 1 x 2 mg) PO BID PRN anxiety or insomnia #60 tabs 02/04/24 [Rx Confirmed 06/23/24] propranolol 60 mg tablet 60 mg PO BID PRN for anxiety #180 tabs 05/03/24 [Rx Confirmed 06/23/24] Visit Medications (administered) Generic Name Dose Route Start Last Admin Trade Name Freq PRN Reason Stop Dose Admin Chlorhexidine Gluconate 15 ml 06/23/24 06:00 06/24/24 05:49 Chlorhexidine Gluconate 15 Ml Cup PO 15 ml Q6HR NILSA Administration Enoxaparin Sodium 40 mg 06/23/24 11:39 06/24/24 08:50 Enoxaparin 40 Mg/0.4 Ml Syringe SUBCUT 40 mg DAILY NILSA Administration Famotidine 20 mg 06/23/24 21:00 06/24/24 08:50 Famotidine 20 Mg/2 Ml Vial IV 20 mg BID NILSA Administration Folic Acid 1 mg 06/24/24 09:00 06/24/24 08:50 Folic Acid 1 Mg Tablet PO 1 mg DAILY NILSA Administration Propofol 1,000 mg in 100 mls @ 2.585 mls/hr 06/23/24 04:49 06/24/24 09:44 Diprivan IV 30 mcg/kg/min TITRATE NILSA 15.513 mls/hr Titration Protocol 5 MCG/KG/MIN Sodium Chloride 1,000 mls @ 150 mls/hr 06/23/24 06:30 06/24/24 08:51 Normal Saline 0.9% IV 150 mls/hr CONT NILSA Administration Fentanyl 1,000 mcg/ Dextrose 250 mls @ 15.082 mls/hr 06/23/24 11:39 06/24/24 09:43 IV 0.9 mcg/kg/hr TITRATE NILSA 19.391 mls/hr Titration Protocol 0.7 MCG/KG/HR Levetiracetam 500 mg/ Sodium 105 mls @ 420 mls/hr 06/23/24 16:00 06/24/24 03:56 Chloride IV Infused Q12H NILSA Infusion Thiamine HCl 100 mg/ Sodium 101 mls @ 404 mls/hr 06/24/24 09:00 06/24/24 09:43 Chloride IV Infused DAILY NILSA Infusion dexmedeTOMIDine in 0.9 % NaCL 400 mcg in 100 mls @ 4.2 mls/hr 06/23/24 20:30 06/24/24 09:38 Precedex IV 1.5 mcg/kg/hr TITRATE NILSA 31.5 mls/hr Administration Protocol 0.2 MCG/KG/HR Multivitamins 1 tab 06/24/24 09:00 06/24/24 08:50 Multivitamin 1 Tablet PO 1 tab DAILY NILSA Administration Sodium Chloride 10 ml 06/24/24 09:00 06/24/24 08:51 Sodium Chloride 0.9% Flush IV 10 ml BID NILSA Administration Objective Ventilator Parameters: Ventilator Settings FiO2 21 RT Vent Frequency 16 Ventilator Tidal Volume 530 Exhaled Vt/kg IBW 7 Positive End Expiratory 5 Pressure Inspiratory Phase Time 0.9 I:E Ratio 1:3.2 Patient Position HOB >= 30 degrees Labs 06/23/24 04:24 06/24/24 05:15 Labs: Laboratory Results - last 24 hr 06/23/24 06/23/24 06/24/24 11:50 16:00 05:15 Sodium 142 142 Potassium 3.0 L D 3.2 L Chloride 112 H 110 H Carbon Dioxide 21 L 22 BUN 5 L 6 L Creatinine 0.65 L 0.95 Estimated GFR > 60 > 60 BUN/Creatinine Ratio 7.7 6.3 Glucose 80 77 Calcium 8.0 L 8.2 L Magnesium 1.1 L Total Bilirubin 1.1 AST 67 H ALT 50 H Alkaline Phosphatase 75 Total Protein 7.0 Albumin 3.7 Globulin 3.3 Albumin/Globulin Ratio 1.1 Nasal Screen MRSA (PCR) Not detected Exam Vital Signs (past 8 hours): - 06/24/24 02:00 06/24/24 02:00 06/24/24 02:15 Temperature 101.5 F H 101.5 F H Pulse Rate 69 64 Respiratory Rate 16 16 Blood Pressure 148/92 H Pulse Oximetry 95 96 Oxygen Delivery Method Oxygen Flow Rate 06/24/24 02:30 06/24/24 02:30 06/24/24 02:45 Temperature 101.3 F H 101.3 F H Pulse Rate 62 60 Respiratory Rate 16 16 Blood Pressure 145/92 H Pulse Oximetry 96 96 Oxygen Delivery Method Oxygen Flow Rate 06/24/24 03:00 06/24/24 03:00 06/24/24 03:14 Temperature 101.3 F H 102.6 F H Pulse Rate 61 Respiratory Rate 16 Blood Pressure 150/98 H Pulse Oximetry 96 Oxygen Delivery Method Oxygen Flow Rate 06/24/24 03:15 06/24/24 03:30 06/24/24 03:30 Temperature 101.5 F H 101.5 F H Pulse Rate 61 67 Respiratory Rate 16 19 Blood Pressure 151/98 H Pulse Oximetry 97 95 Oxygen Delivery Method Oxygen Flow Rate 06/24/24 03:44 06/24/24 03:45 06/24/24 03:59 Temperature 100.9 F H 101.5 F H 100.0 F H Pulse Rate 65 Respiratory Rate 17 Blood Pressure Pulse Oximetry 93 Oxygen Delivery Method Oxygen Flow Rate 0 06/24/24 03:59 06/24/24 03:59 06/24/24 04:00 Temperature 99.9 F H Pulse Rate 65 Respiratory Rate 18 Blood Pressure 160/100 H Pulse Oximetry 88 L Oxygen Delivery Method Mechanical Ventilation Oxygen Flow Rate 06/24/24 04:00 06/24/24 04:00 06/24/24 04:15 Temperature 99.7 F H 97.5 F L Pulse Rate 67 61 Respiratory Rate 16 16 Blood Pressure 166/106 H Pulse Oximetry 94 95 Oxygen Delivery Method Oxygen Flow Rate 0 0 06/24/24 04:30 06/24/24 04:30 06/24/24 04:45 Temperature 101.3 F H 95.7 F L Pulse Rate 60 59 L Respiratory Rate 16 16 Blood Pressure 150/97 H Pulse Oximetry 95 95 Oxygen Delivery Method Oxygen Flow Rate 0 0 06/24/24 05:00 06/24/24 05:00 06/24/24 05:15 Temperature 88.9 F L 90.5 F L Pulse Rate 58 L 58 L Respiratory Rate 16 16 Blood Pressure 154/101 H Pulse Oximetry 96 96 Oxygen Delivery Method Oxygen Flow Rate 06/24/24 05:30 06/24/24 05:30 06/24/24 05:33 Temperature 101.3 F H 101.3 F H Pulse Rate 56 L 57 L Respiratory Rate 16 16 Blood Pressure 157/105 H Pulse Oximetry 95 95 Oxygen Delivery Method Oxygen Flow Rate 06/24/24 05:33 06/24/24 05:36 06/24/24 05:36 Temperature 101.3 F H Pulse Rate 57 L Respiratory Rate 16 Blood Pressure 159/106 H 170/112 H Pulse Oximetry 95 Oxygen Delivery Method Oxygen Flow Rate 06/24/24 05:38 06/24/24 05:38 06/24/24 05:40 Temperature 101.3 F H 101.3 F H Pulse Rate 57 L 57 L Respiratory Rate 16 16 Blood Pressure 176/116 H Pulse Oximetry 95 95 Oxygen Delivery Method Oxygen Flow Rate 0 06/24/24 05:40 06/24/24 05:45 06/24/24 05:45 Temperature 99.7 F H 101.3 F H Pulse Rate 56 L Respiratory Rate 16 Blood Pressure 164/106 H Pulse Oximetry 95 Oxygen Delivery Method Oxygen Flow Rate 06/24/24 06:00 06/24/24 06:15 06/24/24 06:15 Temperature 101.3 F H 101.1 F H Pulse Rate 57 L 56 L Respiratory Rate 16 16 Blood Pressure 162/105 H Pulse Oximetry 95 95 Oxygen Delivery Method Oxygen Flow Rate 0 0 06/24/24 06:30 06/24/24 06:45 06/24/24 07:00 Temperature 101.1 F H 100.7 F H 101.1 F H Pulse Rate 56 L 57 L 59 L Respiratory Rate 16 16 16 Blood Pressure Pulse Oximetry 94 94 94 Oxygen Delivery Method Oxygen Flow Rate 0 0 06/24/24 07:00 06/24/24 07:15 06/24/24 07:30 Temperature 101.1 F H Pulse Rate 59 L Respiratory Rate 16 Blood Pressure 159/104 H 155/103 H Pulse Oximetry 94 Oxygen Delivery Method Oxygen Flow Rate 06/24/24 07:30 06/24/24 07:45 06/24/24 08:00 Temperature 101.3 F H 101.3 F H 101.5 F H Pulse Rate 60 61 59 L Respiratory Rate 16 16 16 Blood Pressure Pulse Oximetry 93 93 93 Oxygen Delivery Method Oxygen Flow Rate 06/24/24 08:00 06/24/24 08:00 06/24/24 08:15 Temperature 101.5 F H Pulse Rate 59 L Respiratory Rate 16 Blood Pressure 157/101 H Pulse Oximetry 93 Oxygen Delivery Method Mechanical Ventilation Oxygen Flow Rate 06/24/24 08:30 06/24/24 08:30 06/24/24 08:45 Temperature 101.7 F H 101.7 F H Pulse Rate 59 L 58 L Respiratory Rate 16 16 Blood Pressure 160/102 H Pulse Oximetry 92 92 Oxygen Delivery Method Oxygen Flow Rate 06/24/24 09:00 06/24/24 09:00 06/24/24 09:15 Temperature 101.8 F H 101.8 F H Pulse Rate 61 64 Respiratory Rate 20 28 H Blood Pressure 157/109 H Pulse Oximetry 95 95 Oxygen Delivery Method Oxygen Flow Rate Oxygen Delivery Method Mechanical Ventilation Oxygen Flow Rate 0 Quality TeleICU VTE Deep Vein Thrombosis/Pulmonary Embolism Present on Admission: No Assessment & Plan Time-Based Coding :: [TOTAL MINUTES] spent with patient and on the chart (including review of chart, obtaining history, exam, reviewing outside data, placing orders, documenting exam and treatment plan, and counseling patient) on [DATE].
[2024-06-24] MEDS: MAGNESIUM SULFATE 4 GM/100 ML PIGGYBACK IV (09:58)
[2024-06-24] MEDS: POTASSIUM CHLORIDE IN WATER 10 MEQ/100 ML PIGGYBACK 100 MEQ IV ×4 (09:59→13:20)
[2024-06-24] MEDS: propofoL 1,000 MG/100 ML VIAL 15.513 MG IV ×3 (10:36→17:59)
[2024-06-24] MEDS: HYDRALAZINE 20 MG/ML VIAL 10 MG IV (10:40)
[2024-06-24] MEDS: CEFEPIME 2 GM in SODIUM CHLORIDE 0.9% 100 ML IV ×2 (12:24→20:15)
[2024-06-24] MEDS: metroNIDAZOLE 500 MG/100 ML PIGGYBACK 100 MG IV ×2 (13:23→20:38)
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
[2024-06-24] MEDS: HYDRALAZINE 20 MG/ML VIAL IV (15:29)
[2024-06-24] MEDS: DEXMEDETOMIDINE HCL IV (19:03)
[2024-06-24] MEDS: SODIUM CHLORIDE 0.9% IV (19:03)
[2024-06-24 23:10] LABS: Acinetobacter calcoa-baumannii Not Detected (Not Detect); Bacteroides fragilis Not Detected (Not Detect); Candida albicans Not Detected (Not Detect); Candida auris Not Detected (Not Detect); Candida glabrata Not Detected (Not Detect); Candida krusei Not Detected (Not Detect); Candida parapsilosis Not Detected (Not Detect); Candida tropicalis Not Detected (Not Detect); Cryptococcus neoformans/gatti Not Detected (Not Detect); Enterobacter cloacae complex Not Detected (Not Detect); Enterobacterales Not Detected (Not Detect); Enterococcus faecalis Not Detected (Not Detect); Enterococcus faecium Not Detected (Not Detect); Haemophilus influenzae Not Detected (Not Detect); Klebsiella aerogenes Not Detected (Not Detect); Listeria monocytogenes Not Detected (Not Detect); Neisseria meningitidis Not Detected (Not Detect); Proteus species Not Detected (Not Detect); Pseudomonas aeruginosa Not Detected (Not Detect); Salmonella species Not Detected (Not Detect); Serratia marcescens Not Detected (Not Detect); Staphylococcus epidermidis Not Detected (Not Detect); Staphylococcus lugdunensis Not Detected (Not Detect); Staphylococcus species Detected (Not Detect); Stenotrophomonas maltophilia Not Detected (Not Detect); Streptococcus agalactiae (Gr B Not Detected (Not Detect); Streptococcus pneumonia Not Detected (Not Detect); Streptococcus pyogenes (Gr A) Not Detected (Not Detect); Streptococcus species Not Detected (Not Detect)
[2024-06-25] VITALS (104 sets, daily range): BP systolic 103–150; BP diastolic 60–102; PULSE 64–95; RESP 8–24; TEMP 29.3–38.1; O2SAT 88–98
[2024-06-25] MEDS: CHLORHEXIDINE GLUCONATE 15 ML CUP PO ×4 (00:14→18:10)
[2024-06-25] MEDS: HYDRALAZINE 20 MG/ML VIAL IV (00:14)
[2024-06-25] MEDS: propofoL 1,000 MG/100 ML VIAL 25.855 MG IV ×6 (00:15→20:58)
[2024-06-25] MEDS: SODIUM CHLORIDE 0.9% FLUSH 10 ML IV ×3 (00:22→21:46)
[2024-06-25] MEDS: DEXMEDETOMIDINE HCL IV ×4 (00:59→19:37)
[2024-06-25] MEDS: SODIUM CHLORIDE 0.9% IV ×4 (00:59→19:37)
[2024-06-25] MEDS: metroNIDAZOLE 500 MG/100 ML PIGGYBACK 100 MG IV ×4 (01:45→19:50)
[2024-06-25] MEDS: CEFEPIME 2 GM in SODIUM CHLORIDE 0.9% 100 ML IV ×3 (03:25→19:34)
[2024-06-25] MEDS: SODIUM CHLORIDE 0.9% 1,000 ML 150 ML IV (03:28)
[2024-06-25] MEDS: levETIRAcetam 500 MG in SODIUM CHLORIDE 0.9% 100 ML 420 MG IV ×2 (04:20→16:40)
[2024-06-25 05:19] LABS: Add Manual Diff / Slide Review NO; Basophils Absolute Auto 0 /uL (0-100); Basophils Percent Auto 0.2 % (0-2); Eosinophils Absolute Auto 300 /uL (0-450); Eosinophils Percent Auto 1.5 % (2-4); Hematocrit 43.7 % (41-53); Hemoglobin 14.9 g/dL (13.5-17.5); Lymphocytes Absolute Auto 1800 /uL (1100-4500); Lymphocytes Percent Auto 9.8 % (25-40); Mean Corpuscular Hemoglobin 32.1 PG (26-34); Mean Corpuscular Volume 94.3 fL (80-100); Monocytes Absolute Auto 1000 /uL (0-900); Monocytes Percent Auto 5.7 % (3-14); Neutrophils Absolute Auto 14900 /uL (1500-7000); Neutrophils Percent Auto 82.8 % (50-75); Platelet Count 230 X10^3/uL (150-400); Red Blood Cell Count 4.64 X10^6/uL (4.5-5.9); Red Cell Distribution Width 14.4 % (11.6-14.8); White Blood Cell Count 18.1 X10^3/uL (4.5-11.0)
[2024-06-25 05:21] LABS: Magnesium 1.6 mg/dL (1.6-2.3)
[2024-06-25 05:22] LABS: Alanine Aminotransferase 37 IU/L (<50); Albumin Globulin Ratio 0.9 (1.0-2.8); Alkaline Phosphatase 82 U/L (38-126); Aspartate Aminotransferase 41 IU/L (17-59); BUN Creatinine Ratio 6.2 (6-22); Bilirubin Total 0.7 mg/dL (0.2-1.3); Blood Urea Nitrogen 4 mg/dL (9-20); Carbon Dioxide 17 mmol/L (22-32); Chloride 108 mmol/L (98-107); Estimated Glomerular Filt Rate > 60 mL/min (>60); Globulin 3.3 g/dL (1.7-4.1); Glucose 104 mg/dL (70-100); HEMOLYSIS 18 (0-50); Potassium 3.4 mmol/L (3.4-5.1); Sodium 133 mmol/L (137-145); Total Protein 6.3 g/dL (6.3-8.2)
[2024-06-25] MEDS: VANCOMYCIN 1,250 MG/250 ML PIGGYBACK 250 MG IV ×3 (07:04→23:46)
--- NOTE | 2024-06-25 07:55 | PC.NURSE ---
Addendum entered by Debi Love R.N. 06/25/24 16:49: After discussing possible transfer with Dr Landry E-ICU, Dr Carmona has decided to keep pt at and will attempt SBT and sedation vacation on 06/26/24 am. Family updated on status, care on going. Addendum entered by Debi Love R.N. 06/25/24 11:03: 1015 Pt started coughing, choking around the ETT, vomiting up emesis (mucus like bilious emesis) approx. 100cc, pt face turned bright red to purple, suction pt, he became extremely agitated, pulling at restraints and thrashing in bed, turned back on sedation (propofol), turned up Precedex (see emar for titrations). Pt calmed down slowly, and went back to sleep. Updated Dr Carmona on event, it was determined that pt was not ready for extubation. Dr Carmona to initiate transfer orders for possible need for bronch. Care ongoing Addendum entered by Debi Love R.N. 06/25/24 09:13: pt starting to wake up more at 0910, forehead furrowed, eyes open but do not sustain, suctioned deep, willard, creamy secretions noted. Care ongoing Original Note: Sedation vacation initiated at 0748, Propofol gtt was reduced by half (see emar for titrations), vent setting remain VT 520 FiO2 21 RR 16 PEEP 5. RASS -4, RT aware sedation vacation has started.
[2024-06-25] MEDS: VANCOMYCIN PER PHARMACY 1 REQUEST MISC (08:03)
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
--- NOTE | 2024-06-25 08:09 | DI.ECHO.S_ITS ---
[facility]---------+ [facility] : : [address] : : [place] : : [id number] : : Phone: [phone] Echocardiogram Report + + :Name: CAROLINA REILLY Study Date: 06/25/2024 Height: 70 in : :Hospital ReadingLocation: Weight: 186 lb : : Gender: Male BSA: 2.0 m2 : :: 1995 Age: 29 yrs BP: 135/91 mmHg: :Reason For Study: BACTEREMIA : :Ordering Physician: TAMEKA, : :TOMAS Lowe Performed By: Aleida Franks : :Referring: TOMAS ENGLISH : + + Interpretation Summary The study quality was technically difficult. The left ventricle is normal in size and wall thickness. The ejection fraction is estimated to be 55-60%. The right ventricle is normal in size and function. All the valves were not well-visualized however no obvious valvular vegetation seen. Inspiratory collapse cannot be assessed because of mechanical ventilation, thus CVP cannot be estimated.. If clinical suspicion for endocarditis is high, consider MANUELA. Procedure: A two-dimensional transthoracic echocardiogram with color flow and Doppler was performed. The study quality was technically difficult. There is no prior echocardiogram noted for this patient. The patient was in sinus rhythm with heart rates between 79-92 bpm during the exam. Left Ventricle: The left ventricle is normal in size and wall thickness. There is no thrombus. A false chord is noted (normal variant). The ejection fraction is estimated to be 55-60%. There are no obvious focal wall motion abnormalities noted but poor endocardial definition reduces the sensitivity for the detection of such. No significant diastolic dysfunction. Right Ventricle: The right ventricle is normal in size and function. Atria: The left atrial size is normal. Right atrial size is normal. There is no Doppler evidence for an interatrial shunt. Mitral Valve: There is a flat closure plane of the the mitral valve leaflets. There is no evidence of mitral valve prolapse. There is no obvious vegetation seen on the mitral valve. There is no mitral regurgitation noted. Aortic Valve: The aortic valve is not well visualized. There is no aortic valve stenosis. No aortic regurgitation is present. Tricuspid Valve: The tricuspid valve leaflets are thin and pliable. There is no obvious tricuspid valve vegetation. There is trace tricuspid regurgitation. Pulmonary artery pressures cannot be estimated because of the lack of a measurable TR jet velocity. Pulmonic Valve: The pulmonic valve is not well visualized. Great Vessels: The aortic root is normal size. The ascending aorta could not be visualized. Inspiratory collapse cannot be assessed because of mechanical ventilation, thus CVP cannot be estimated.. Pericardium/ Pleura There is no pericardial effusion. There is no pleural effusion. MMode/2D Measurements & Calculations LVIDd: 5.0 cm LVOT diam: 2.2 cm LVIDs: 4.0 cm Ao root diam: 3.1 cm FS: 19.4 % EPSS: 0.66 cm IVSd: 0.83 cm LVPWd: 0.67 cm LV adan. diameter/BSA (cm/m^2): 2.5 LV sys. diameter/BSA (cm/m^2): 2.0 LA A2 area: 13.5 cm2 RA long axis: 4.7 cm LA A4 area: 10.4 cm2 RA area: 15.6 cm2 LA length (vol): 4.3 cm RA vol: 43.9 ml LA vol: 27.6 ml RA : 21.7 ml/m2 LA vol index: 13.6 ml/m2 IVC diam: 2.1 cm RVD1 (basal): 3.1 cm RVD2 (mid): 2.8 cm TAPSE: 1.9 cm Doppler Measurements & Calculations Ao V2 max: 112.2 cm/sec LVOT Max Jose: 89.5 cm/sec Ao V2 mean: 83.8 cm/sec LV V1 max P.2 mmHg Ao max P.0 mmHg LV V1 VTI: 15.2 cm Ao mean P.1 mmHg PRATEEK(I,D): 3.4 cm2 Ao V2 VTI: 17.2 cm PRATEEK(V,D): 3.1 cm2 sev ratio: 0.88 PRATEEK indexed to BSA (cm^2/m^2): 1.7 MV E max jose: 57.2 cm/sec SV(LVOT): 58.9 ml MV A max jose: 51.2 cm/sec MV E/A: 1.1 Med Peak E' Jose: 9.5 cm/sec E/E' med: 6.0 Lat Peak E' Jose: 13.4 cm/sec E/E' lat: 4.3 E/e' average: 5.2 MV dec time: 0.23 sec Reading Physician:01:07 PM
[2024-06-25] MEDS: FAMOTIDINE 20 MG/2 ML VIAL IV ×2 (09:02→21:46)
[2024-06-25] MEDS: ENOXAPARIN 40 MG/0.4 ML SYRINGE SUBCUT (09:02)
--- NOTE | 2024-06-25 09:25 | DI.RAD.S_ITS ---
PROCEDURE: XR CHEST 1V INDICATIONS: PNA TECHNIQUE: One view of the chest was acquired. COMPARISON: [facility], CR, XR CHEST 1V, 06/23/2024, 4:42. FINDINGS: Surgical changes and devices: ETT tip is approximately 3.9 cm above the madelaine. NG tube tip is below the left hemidiaphragm. Lungs and pleura: Subtle opacity in bilateral infrahilar region are seen concerning for early infiltrates versus atelectasis. No pleural effusions or pneumothorax. Mediastinum: Mediastinal contours appear normal. Heart size is normal. Bones and chest wall: No suspicious bony lesions. Overlying soft tissues appear unremarkable. IMPRESSION: Finding is concerning for early infiltrate versus atelectasis in bilateral infrahilar region. No pleural effusion or pneumothorax. ETT and NG tube are in satisfactory position. Dictated by: Cooper Hernandez M.D. on 06/25/2024 at 13:59 Approved by: Cooper Hernandez M.D. on 06/25/2024 at 14:00
--- NOTE | 2024-06-25 09:35 | P.TELICUPN_ITS ---
Subjective Subjective IF CAMERA ACTIVATED, patient seen via real-time interactive audiovisual communication: Camera activated Consent obtained for tele-adult health clinical nurse specialist care: Yes Patient Location: ICU Provider location (State): Other participants/roles: RN & RT Interval history: . Pt on the vent, weaning off sedation, now on precedex, weaned off propfole, per nurse pt was able to communicate by moving his head yesterday. I/O +1.5 L, required hydralzine for elevated BP yesterday, needing suctioning for clear thin respiratory secretions. Was started on Emperic Vanc, cefepime and flagyl yesterday for fever, leuckocytosis today, pending CXR to eval for aspiration PNA and pul edema. IV lasix 80 mg x1 ordered. Assessment & Plan narrative: NEURO: # Acute encephalopathy -- CTH negative -- Slow wean off precedex gtt -- If continues to remain encephalopathic then patient will need transfer to tertiary care for EEG ( now less of a concern as pt able to communicate) -- On Keppra bid # Alcohol abuse -- thiamine, folic acid, and MTV -- Monitor closely for withdrawals -- Electrolyte replacement ( K & Mg getting replaced) RESP: # Acute respiratory failure # Aspiration PNA # Sepsis / GPC bacetermia -- Intubated and sedated -- Meeting goals of oxygenation and ventilation -- Daily SAT and SBT -- Emperic Vanc, cefepime and flagyl , check MRSA, resp Cx, repeat blood Cx, check 2 D echo -- Follow up Cx sensitivity -- CXR today -- IV lasix 80 mg x1 -- HOB elevation -- Aspiration precaution -- Goal SpO2 > 90% CVS: -- MAP goal > 65 ENDO: -- GOal BS < 180 VTE: Lovenox SQ SUP: Pepcid D/w bedside RN. Current Medications Current Medications Medications: Home Medications hydroxyzine HCl 25 mg tablet 25 mg PO BEDTIME #30 tabs 11/19/23 [Rx Confirmed 06/23/24] clonazepam 2 mg tablet 1 - 2 mg (0.5 - 1 x 2 mg) PO BID PRN anxiety or insomnia #60 tabs 02/04/24 [Rx Confirmed 06/23/24] propranolol 60 mg tablet 60 mg PO BID PRN for anxiety #180 tabs 05/03/24 [Rx Confirmed 06/23/24] Visit Medications (administered) Generic Name Dose Route Start Last Admin Trade Name Freq PRN Reason Stop Dose Admin Chlorhexidine Gluconate 15 ml 06/23/24 06:00 06/25/24 06:02 Chlorhexidine Gluconate 15 Ml Cup PO 15 ml Q6HR NILSA Administration Enoxaparin Sodium 40 mg 06/23/24 11:39 06/25/24 09:02 Enoxaparin 40 Mg/0.4 Ml Syringe SUBCUT 40 mg DAILY NILSA Administration Famotidine 20 mg 06/23/24 21:00 06/25/24 09:02 Famotidine 20 Mg/2 Ml Vial IV 20 mg BID NILSA Administration Folic Acid 1 mg 06/24/24 09:00 06/25/24 08:59 Folic Acid 1 Mg Tablet PO Not Given DAILY NILSA Hydralazine HCl 20 mg 06/24/24 15:11 06/25/24 00:14 Hydralazine 20 Mg/Ml Vial IV 20 mg Q6HR PRN Administration SBP over 170, DBP over 100 Propofol 1,000 mg in 100 mls @ 2.585 mls/hr 06/23/24 04:49 06/25/24 09:03 Diprivan IV 6 mcg/kg/min TITRATE NILSA 3.103 mls/hr Titration Protocol 5 MCG/KG/MIN Sodium Chloride 1,000 mls @ 150 mls/hr 06/23/24 06:30 06/25/24 03:28 Normal Saline 0.9% IV 150 mls/hr CONT NILSA Administration Levetiracetam 500 mg/ Sodium 105 mls @ 420 mls/hr 06/23/24 16:00 06/25/24 05:40 Chloride IV Infused Q12H NILSA Infusion Thiamine HCl 100 mg/ Sodium 101 mls @ 404 mls/hr 06/24/24 09:00 06/24/24 09:43 Chloride IV Infused DAILY NILSA Infusion Cefepime HCl 2 gm/ Sodium 100 mls @ 200 mls/hr 06/24/24 11:30 06/25/24 05:39 Chloride IV Infused Q8H NILSA Infusion Metronidazole 500 mg in 100 mls @ 100 mls/hr 06/24/24 13:30 06/25/24 09:03 Flagyl IV Infused Q6H NILSA Infusion Dexmedetomidine HCl 800 mcg/ 100 mls @ 2.1 mls/hr 06/24/24 15:45 06/25/24 08:13 Sodium Chloride IV 0.5 mcg/kg/hr TITRATE NILSA 5.25 mls/hr Titration Protocol 0.2 MCG/KG/HR Vancomycin HCl 1,250 mg in 250 mls @ 250 mls/hr 06/25/24 07:00 06/25/24 08:04 Vancomycin IV Infused Q8H NILSA Infusion Multivitamins 1 tab 06/24/24 09:00 06/25/24 08:59 Multivitamin 1 Tablet PO Not Given DAILY NILSA Sodium Chloride 10 ml 06/24/24 09:00 06/25/24 09:02 Sodium Chloride 0.9% Flush IV 10 ml BID NILSA Administration Sodium Chloride 10 ml 06/23/24 23:15 06/25/24 00:22 Sodium Chloride 0.9% Flush IV 10 ml PRN PRN Administration Flush Objective Ventilator Parameters: Ventilator Settings FiO2 21 RT Vent Frequency 16 Ventilator Tidal Volume 530 Exhaled Vt/kg IBW 7 Positive End Expiratory 5 Pressure Inspiratory Phase Time 0.9 I:E Ratio 1:3.2 Patient Position HOB >= 30 degrees Labs 06/25/24 04:55 06/25/24 04:55 Labs: Laboratory Results - last 24 hr 06/24/24 06/25/24 05:15 04:55 WBC 18.1 H RBC 4.64 Hgb 14.9 Hct 43.7 MCV 94.3 MCH 32.1 MCHC 34.0 RDW 14.4 Plt Count 230 Neut % (Auto) 82.8 H Lymph % (Auto) 9.8 L [place] % (Auto) 5.7 Eos % (Auto) 1.5 L Baso % (Auto) 0.2 Neut # (Auto) 44845 H Lymph # (Auto) 1800 [place] # (Auto) 1000 H Eos # (Auto) 300 Baso # (Auto) 0 Sodium 133 L Potassium 3.4 Chloride 108 H Carbon Dioxide 17 L BUN 4 L Creatinine 0.65 L Estimated GFR > 60 BUN/Creatinine Ratio 6.2 Glucose 104 H Calcium 8.0 L Magnesium 1.6 Total Bilirubin 0.7 AST 41 ALT 37 Alkaline Phosphatase 82 Total Protein 6.3 Albumin 3.0 L Globulin 3.3 Albumin/Globulin Ratio 0.9 L A.calcoaceticus-baumannii cmplx PCR Not detected Bacteroides fragilis Not detected Jovana albicans (PCR) Not detected Jovana auris (PCR) Not detected C. glabrata (PCR) Not detected C. krusei (PCR) Not detected C. parapsilosis (PCR) Not detected C. tropicalis (PCR) Not detected C. neoform/gattii (PCR) Not detected Enterobacterales (PCR) Not detected E. cloacae complex PCR Not detected Enterococc faecalis PCR Not detected Enterococc faecium PCR Not detected E. coli (PCR) Not detected H. influenzae (PCR) Not detected Klebsiella aerogenes (PCR) Not detected Klebsiella oxytoca PCR Not detected Klebsiella pneumoniae Not detected List. monocytogenes PCR Not detected N. meningitidis (PCR) Not detected Proteus species (PCR) Not detected Salmonella spp. (PCR) Not detected Serratia marcescens PCR Not detected Staphylococcus sp PCR Detected Staph aureus (PCR) Not detected mecA/C & MREJ Resist Gene Not applicable mecA/C-Methicil Resis Gene Not applicable mcr-1 Colistin Res Gene PCR Not applicable Staph epidermidis (PCR) Not detected Staph lugdunensis PCR Not detected S. maltophilia (PCR) Not detected Streptococcus sp PCR Not detected Group A Strep (PCR) Not detected Strep agalactiae (PCR) Not detected Strep pneumoniae (PCR) Not detected P. aeruginosa (PCR) Not detected Lui/B-Vanco Res Genes Not applicable blaIMP Car res Gene PCR Not applicable KPC-Carbap Res Gene PCR Not applicable blaNDM Car Res Gene PCR Not applicable OXA-48 Carbapenem Resis Gene (PCR) Not applicable blaVIM Car Res Gene PCR Not applicable CTX-M Gene Resistance (PCR) Not applicable Exam Vital Signs (past 8 hours): - 06/25/24 01:45 06/25/24 01:45 06/25/24 02:00 Temperature 97.2 F L 97.3 F L Pulse Rate 87 86 Respiratory Rate 16 16 Blood Pressure 113/65 Pulse Oximetry 93 94 Oxygen Delivery Method Oxygen Flow Rate Fraction of Inspired Oxygen 06/25/24 02:00 06/25/24 02:15 06/25/24 02:15 Temperature 97.3 F L Pulse Rate 85 Respiratory Rate 16 Blood Pressure 113/66 114/68 Pulse Oximetry 94 Oxygen Delivery Method Oxygen Flow Rate Fraction of Inspired Oxygen 06/25/24 02:30 06/25/24 02:30 06/25/24 02:45 Temperature 97.3 F L 97.3 F L Pulse Rate 84 83 Respiratory Rate 16 16 Blood Pressure 116/69 Pulse Oximetry 94 94 Oxygen Delivery Method Oxygen Flow Rate Fraction of Inspired Oxygen 06/25/24 02:45 06/25/24 03:00 06/25/24 03:00 Temperature 97.3 F L Pulse Rate 81 Respiratory Rate 16 Blood Pressure 118/71 119/73 Pulse Oximetry 94 Oxygen Delivery Method Oxygen Flow Rate Fraction of Inspired Oxygen 06/25/24 03:15 06/25/24 03:15 06/25/24 03:30 Temperature 97.5 F L 97.5 F L Pulse Rate 80 79 Respiratory Rate 16 16 Blood Pressure 121/75 Pulse Oximetry 94 94 Oxygen Delivery Method Oxygen Flow Rate Fraction of Inspired Oxygen 06/25/24 03:30 06/25/24 03:45 06/25/24 03:45 Temperature 97.5 F L Pulse Rate 79 Respiratory Rate 16 Blood Pressure 124/77 128/79 Pulse Oximetry 93 Oxygen Delivery Method Oxygen Flow Rate Fraction of Inspired Oxygen 06/25/24 04:00 06/25/24 04:00 06/25/24 04:00 Temperature 97.5 F L Pulse Rate 78 Respiratory Rate 16 Blood Pressure 124/83 Pulse Oximetry 92 Oxygen Delivery Method Mechanical Ventilation Oxygen Flow Rate Fraction of Inspired Oxygen 06/25/24 04:15 06/25/24 04:15 06/25/24 04:30 Temperature 97.5 F L Pulse Rate 79 Respiratory Rate 16 Blood Pressure 124/82 127/81 Pulse Oximetry 93 Oxygen Delivery Method Oxygen Flow Rate Fraction of Inspired Oxygen 06/25/24 04:30 06/25/24 04:45 06/25/24 04:45 Temperature 97.5 F L 98.4 F Pulse Rate 78 77 Respiratory Rate 16 16 Blood Pressure 130/83 Pulse Oximetry 93 94 Oxygen Delivery Method Oxygen Flow Rate Fraction of Inspired Oxygen 06/25/24 05:00 06/25/24 05:00 06/25/24 05:15 Temperature 98.4 F 98.4 F Pulse Rate 78 78 Respiratory Rate 16 16 Blood Pressure 129/85 Pulse Oximetry 93 94 Oxygen Delivery Method Oxygen Flow Rate Fraction of Inspired Oxygen 06/25/24 05:15 06/25/24 05:30 06/25/24 05:30 Temperature 98.4 F Pulse Rate 76 Respiratory Rate 16 Blood Pressure 132/88 135/90 Pulse Oximetry 95 Oxygen Delivery Method Oxygen Flow Rate 0 Fraction of Inspired Oxygen 06/25/24 05:45 06/25/24 05:45 06/25/24 06:00 Temperature 98.4 F Pulse Rate 74 Respiratory Rate 16 Blood Pressure 135/90 Pulse Oximetry 95 Oxygen Delivery Method Oxygen Flow Rate 0 0 Fraction of Inspired Oxygen 21 06/25/24 06:00 06/25/24 06:00 06/25/24 06:15 Temperature 98.4 F 98.4 F Pulse Rate 74 73 Respiratory Rate 16 16 Blood Pressure 138/92 H Pulse Oximetry 95 95 Oxygen Delivery Method Oxygen Flow Rate 0 Fraction of Inspired Oxygen 06/25/24 06:30 06/25/24 06:30 06/25/24 06:45 Temperature 98.4 F 98.6 F Pulse Rate 72 72 Respiratory Rate 16 16 Blood Pressure 140/93 H Pulse Oximetry 95 95 Oxygen Delivery Method Oxygen Flow Rate Fraction of Inspired Oxygen 06/25/24 07:00 06/25/24 07:00 06/25/24 07:15 Temperature 98.6 F 98.6 F Pulse Rate 72 70 Respiratory Rate 16 16 Blood Pressure 140/92 H Pulse Oximetry 95 95 Oxygen Delivery Method Oxygen Flow Rate Fraction of Inspired Oxygen 06/25/24 07:30 06/25/24 07:30 06/25/24 07:45 Temperature 98.6 F 98.6 F Pulse Rate 68 67 Respiratory Rate 16 16 Blood Pressure 148/98 H Pulse Oximetry 95 95 Oxygen Delivery Method Oxygen Flow Rate Fraction of Inspired Oxygen 06/25/24 08:00 06/25/24 08:00 06/25/24 08:00 Temperature 98.6 F Pulse Rate 69 Respiratory Rate 16 Blood Pressure 141/92 H Pulse Oximetry 95 Oxygen Delivery Method Mechanical Ventilation Oxygen Flow Rate Fraction of Inspired Oxygen 06/25/24 08:15 06/25/24 08:30 06/25/24 08:30 Temperature 98.6 F 98.6 F Pulse Rate 71 72 Respiratory Rate 16 16 Blood Pressure 136/88 Pulse Oximetry 94 94 Oxygen Delivery Method Oxygen Flow Rate Fraction of Inspired Oxygen 06/25/24 08:45 06/25/24 09:00 06/25/24 09:00 Temperature 98.8 F 98.8 F Pulse Rate 71 72 Respiratory Rate 9 L 12 Blood Pressure 135/91 H Pulse Oximetry 94 94 Oxygen Delivery Method Oxygen Flow Rate Fraction of Inspired Oxygen Fraction of Inspired Oxygen 21 Oxygen Delivery Method Mechanical Ventilation Oxygen Flow Rate 0 Quality TeleICU VTE Deep Vein Thrombosis/Pulmonary Embolism Present on Admission: No Assessment & Plan Time-Based Coding :: [TOTAL MINUTES] spent with patient and on the chart (including review of chart, obtaining history, exam, reviewing outside data, placing orders, documenting exam and treatment plan, and counseling patient) on [DATE].
[2024-06-25] MEDS: THIAMINE 100 MG in SODIUM CHLORIDE 0.9% 100 ML 404 MG IV (09:55)
--- NOTE | 2024-06-25 09:58 | RT ---
Called to bedside for alarm. Exp valve replaced as well as filter. Water in chamber. Pt uma well, no distress noted and et tube secure. Bag mask unit at bedside with peep valve. Vent checked family at bedside with rn. Sputum culter collected and given to rn
[2024-06-25] MEDS: FUROSEMIDE 80 MG in SODIUM CHLORIDE 0.9% 50 ML 116 MG IV (10:30)
[2024-06-25] MEDS: MAGNESIUM SULFATE 2 GM/50 ML PIGGYBACK IV (10:39)
[2024-06-25] MEDS: POTASSIUM CHLORIDE IN WATER 10 MEQ/100 ML PIGGYBACK 100 MEQ IV ×4 (10:39→13:35)
--- NOTE | 2024-06-25 14:30 | DI.RAD.S_ITS ---
PROCEDURE: XR CHEST 1V INDICATIONS: aspiration TECHNIQUE: One view of the chest was acquired. COMPARISON: [facility], CR, XR CHEST 1V, 06/25/2024, 9:31. [facility], CR, XR CHEST 1V, 06/23/2024, 4:42. FINDINGS: Surgical changes and devices: Endotracheal and esophagogastric tube positioning normal. Lungs and pleura: Lungs are difficult to accurately assess due to patient tilt and rotation but there does appear to be a retrocardiac left lower lobe pneumonia and a possible lesser degree of alveolar infiltration at the lower medial right lung. No pleural effusions or pneumothorax. Mediastinum: Mediastinal contours appear normal. Heart size is normal. Bones and chest wall: No suspicious bony lesions. Overlying soft tissues appear unremarkable. IMPRESSION: Bibasilar pneumonia versus aspiration. This appears somewhat more prominent on the left than the right currently, without effusion. Dictated by: Lawrence Salazar M.D. on 06/25/2024 at 15:02 Approved by: Lawrence Salazar M.D. on 06/25/2024 at 15:04
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
--- NOTE | 2024-06-25 16:14 | DIET.CONS ---
Dietary Consultation Note Admission Date: 06/23/2024 07:57 Assessment: 29y M admitted and quickly intubated for suspected overdose, unable to protect airway on 06/23/24. RD consulted for NPO on vent status. Pt has been intubated for almost 60 hours but continues to have copious bilious output from mouth around ET tube and occasionally nose. Concern for continued risk of aspiration. MAP stable, electrolytes being repleted as K+ 3.2, Mg 1.1. Pt receiving MVI, Folic Acid and Thiamine. Pt currently getting 683kcal daily from propofol running at 50mcg/kg/min. Ht: 177.8 cm Wt: 86.2 kg BMI: 26.5 UBW: 99kg Last BM: () MNA: 14 Armani Score: 9 Diet: 06/23/24 11:39 NPO Diet Diet Modifications: NPO Type: NPO except for Meds Labs: RBC 4.64 X10^6/uL (4.5-5.9) 06/25/24 04:55 Hgb 14.9 g/dL (13.5-17.5) 06/25/24 04:55 Hct 43.7 % (41-53) 06/25/24 04:55 Creatinine 0.65 mg/dL (0.66-1.25) L 06/25/24 04:55 Lactate 1.4 mmol/L (0.7-2.1) 06/23/24 06:55 Nutrition Diagnosis: inadequate oral intake r/t NPO on vent Interventions: 1. If pt remains on ventilator into the weekend and is appropriate for feeding start: Continuous enteral nutrition via OG/NG of formula PIVOT 1.5 starting at 10mL/h increasing by 10mL q4h as tolerated until at goal of 40mL/h. Free Water Flushes q4h of 300mL each if not receiving IVF. HOB >30 degrees EER: 2100kcals (25kcal/kg per overweight), 90g PRO (1g/kg), 2.5L fluids (30mL/kg) Monitoring/Evaluations: Reassess goal feed rate once pt propofol need decreases as this medication provides >600kcals/d. Electronically Signed by: Maida Pino 06/25/24 16:14 Clinical Dietitian [address] [id number]
[2024-06-26] VITALS (112 sets, daily range): BP systolic 115–168; BP diastolic 72–107; PULSE 57–91; RESP 0–28; TEMP 35.9–39; O2SAT 83–99
[2024-06-26] MEDS: CHLORHEXIDINE GLUCONATE 15 ML CUP PO ×4 (00:47→18:46)
[2024-06-26] MEDS: propofoL 1,000 MG/100 ML VIAL 25.855 MG IV ×6 (00:55→21:16)
[2024-06-26] MEDS: metroNIDAZOLE 500 MG/100 ML PIGGYBACK 100 MG IV ×4 (01:07→20:13)
[2024-06-26] MEDS: DEXMEDETOMIDINE HCL IV ×4 (02:20→16:54)
[2024-06-26] MEDS: SODIUM CHLORIDE 0.9% IV ×8 (02:20→21:47)
[2024-06-26] MEDS: CEFEPIME 2 GM in SODIUM CHLORIDE 0.9% 100 ML IV ×3 (03:18→19:35)
[2024-06-26] MEDS: levETIRAcetam 500 MG in SODIUM CHLORIDE 0.9% 100 ML 420 MG IV ×2 (04:36→15:57)
[2024-06-26 06:56] LABS: Add Manual Diff / Slide Review NO; Basophils Absolute Auto 100 /uL (0-100); Basophils Percent Auto 0.4 % (0-2); Eosinophils Absolute Auto 200 /uL (0-450); Eosinophils Percent Auto 1.2 % (2-4); Hematocrit 42.3 % (41-53); Hemoglobin 14.9 g/dL (13.5-17.5); Lymphocytes Absolute Auto 2400 /uL (1100-4500); Mean Corpuscular HGB Conc 35.1 % (30-36); Mean Corpuscular Hemoglobin 32.6 PG (26-34); Mean Corpuscular Volume 92.9 fL (80-100); Monocytes Absolute Auto 1100 /uL (0-900); Monocytes Percent Auto 6.8 % (3-14); Neutrophils Absolute Auto 12100 /uL (1500-7000); Neutrophils Percent Auto 76.6 % (50-75); Platelet Count 240 X10^3/uL (150-400); Red Blood Cell Count 4.55 X10^6/uL (4.5-5.9); Red Cell Distribution Width 14.4 % (11.6-14.8); White Blood Cell Count 15.9 X10^3/uL (4.5-11.0)
[2024-06-26] MEDS: VANCOMYCIN TROUGH 1 REQUEST MISC (06:57)
[2024-06-26] MEDS: VANCOMYCIN 1,250 MG/250 ML PIGGYBACK 250 MG IV ×3 (07:04→23:09)
--- NOTE | 2024-06-26 07:28 | P.PN_ITS ---
Subjective Subjective Interval history: Summary: The patient has been exhibiting evidence of withdrawal symptoms overnight with increased agitation despite being on propofol and Precedex. He has been drinking 3 fifths of liquor a day for the past 2 months. Subjective not obtainable due to being intubated. Exam Vital Signs (past 8 hours): - 06/25/24 23:30 06/25/24 23:30 06/25/24 23:45 Temperature 100.0 F H 100.0 F H Pulse Rate 73 69 Respiratory Rate 19 17 Blood Pressure 150/99 H Pulse Oximetry 96 96 Oxygen Delivery Method 06/26/24 00:00 06/26/24 00:00 06/26/24 00:00 Temperature 100.0 F H Pulse Rate 68 Respiratory Rate 18 Blood Pressure 146/96 H Pulse Oximetry 97 Oxygen Delivery Method Mechanical Ventilation 06/26/24 00:15 06/26/24 00:30 06/26/24 00:30 Temperature 100.0 F H 100.2 F H Pulse Rate 67 65 Respiratory Rate 16 16 Blood Pressure 148/96 H Pulse Oximetry 97 97 Oxygen Delivery Method 06/26/24 00:45 06/26/24 01:00 06/26/24 01:00 Temperature 100.2 F H 100.2 F H Pulse Rate 67 66 Respiratory Rate 17 16 Blood Pressure 142/94 H Pulse Oximetry 97 98 Oxygen Delivery Method 06/26/24 01:15 06/26/24 01:30 06/26/24 01:30 Temperature 100.2 F H 100.2 F H Pulse Rate 69 69 Respiratory Rate 16 16 Blood Pressure 146/95 H Pulse Oximetry 97 97 Oxygen Delivery Method 06/26/24 01:45 06/26/24 02:00 06/26/24 02:00 Temperature 100.2 F H 100.4 F H Pulse Rate 91 H 87 Respiratory Rate 21 21 Blood Pressure 147/90 H Pulse Oximetry 98 96 Oxygen Delivery Method 06/26/24 02:15 06/26/24 02:30 06/26/24 02:31 Temperature 100.4 F H 100.4 F H Pulse Rate 87 89 Respiratory Rate 14 16 Blood Pressure 159/96 H Pulse Oximetry 99 97 Oxygen Delivery Method 06/26/24 02:31 06/26/24 02:45 06/26/24 03:00 Temperature 100.4 F H 100.6 F H 100.6 F H Pulse Rate 88 82 79 Respiratory Rate 26 H 18 17 Blood Pressure Pulse Oximetry 97 98 98 Oxygen Delivery Method 06/26/24 03:00 06/26/24 03:15 06/26/24 03:30 Temperature 100.6 F H Pulse Rate 85 Respiratory Rate 11 L Blood Pressure 158/101 H 153/98 H Pulse Oximetry 96 Oxygen Delivery Method 06/26/24 03:30 06/26/24 03:45 06/26/24 04:00 Temperature 100.8 F H 100.8 F H 100.8 F H Pulse Rate 70 68 69 Respiratory Rate 16 16 16 Blood Pressure Pulse Oximetry 97 97 96 Oxygen Delivery Method 06/26/24 04:00 06/26/24 04:15 06/26/24 04:30 Temperature 100.8 F H 100.8 F H Pulse Rate 75 75 Respiratory Rate 13 21 Blood Pressure 147/88 H Pulse Oximetry 97 96 Oxygen Delivery Method 06/26/24 04:30 06/26/24 04:39 06/26/24 04:39 Temperature 100.8 F H Pulse Rate 78 Respiratory Rate 16 Blood Pressure 159/102 H 159/101 H Pulse Oximetry 96 Oxygen Delivery Method 06/26/24 04:45 06/26/24 05:00 06/26/24 05:00 Temperature 100.8 F H 101.1 F H Pulse Rate 68 64 Respiratory Rate 16 16 Blood Pressure 143/88 H Pulse Oximetry 96 96 Oxygen Delivery Method 06/26/24 05:15 06/26/24 05:30 06/26/24 05:30 Temperature 100.9 F H 99.7 F H Pulse Rate 88 81 Respiratory Rate 28 H 27 H Blood Pressure 150/96 H Pulse Oximetry 90 L 95 Oxygen Delivery Method 06/26/24 05:45 06/26/24 06:00 06/26/24 06:00 Temperature 100.6 F H 100.8 F H Pulse Rate 73 58 L Respiratory Rate 11 L 11 L Blood Pressure 151/91 H Pulse Oximetry 95 97 Oxygen Delivery Method Fraction of Inspired Oxygen 21 Oxygen Delivery Method Mechanical Ventilation Oxygen Flow Rate 0 Narrative Exam Narrative: Intubated, sedated. Copious secretions. Lungs are clear, normal rate and effort. Heart is regular, no murmur gallop or rub. Abdomen is soft, non distended. Extremities are free of edema. Objective Labs 06/26/24 06:35 06/26/24 06:35 Labs: Laboratory Results - last 24 hr 06/26/24 06:35 WBC 15.9 H RBC 4.55 Hgb 14.9 Hct 42.3 MCV 92.9 MCH 32.6 MCHC 35.1 RDW 14.4 Plt Count 240 Neut % (Auto) 76.6 H Lymph % (Auto) 15.0 L [place] % (Auto) 6.8 Eos % (Auto) 1.2 L Baso % (Auto) 0.4 Neut # (Auto) 62109 H Lymph # (Auto) 2400 [place] # (Auto) 1100 H Eos # (Auto) 200 Baso # (Auto) 100 PFSH Medical History Seizure Anxiety Social History Smoking Status: Former smoker alcohol intake: current Assessment & Plan Assessment & Plan narrative: 1. Toxic encephalopathy, present on admission and improved. 2. Possible GPC bacteremia (06/24), new and active. 3. Aspiration pneumonia, new and active. Sputum culture reveals Staph aureus with sensitivity to follow. 4. History of seizure disorder, present on admission and stable. 5. Polysubstance overdose, present on admission and improved. 6. Hypernatremia, present on admission and improved. 7. New severe alcohol withdrawal, new and active. PLAN: -DVT and GI prophylaxis. -add Versed and ketamine drips for better sedation -continue antibiotics including vancomycin, Cefepime, and flagyl and follow cultures. -2D echo negative. -sedation vacation and breathing trial this morning. Patient was following some commands. He was not able to complete a breathing trial due to secretions and anxiety. He will likely need at least 48 more hours of vent support given the combination of severe agitation, alcohol withdrawal, and a Staph aureus pneumonia. 40 minutes of critical care time spent. This included bedside care, review of all data and meeting with family. Code: Full, surrogate is not known at this time. DVT: Lovenox daily Time-Based Coding :: [TOTAL MINUTES] spent with patient and on the chart (including review of chart, obtaining history, exam, reviewing outside data, placing orders, documenting exam and treatment plan, and counseling patient) on [DATE]. Quality VTE Deep Vein Thrombosis/Pulmonary Embolism Present on Admission: No
[2024-06-26 07:31] LABS: BUN Creatinine Ratio 5.3 (6-22); Blood Urea Nitrogen 4 mg/dL (9-20); Calcium 8.3 mg/dL (8.4-10.2); Carbon Dioxide 17 mmol/L (22-32); Chloride 108 mmol/L (98-107); Estimated Glomerular Filt Rate > 60 mL/min (>60); Glucose 101 mg/dL (70-100); HEMOLYSIS 17 (0-50); Potassium 3.2 mmol/L (3.4-5.1); Sodium 135 mmol/L (137-145)
[2024-06-26] MEDS: MIDAZOLAM 50 MG in DEXTROSE 5 % IN WATER 40 ML IV (07:32)
[2024-06-26 07:36] LABS: Vancomycin Trough 9.4 ug/mL (10-20)
[2024-06-26] MEDS: ENOXAPARIN 40 MG/0.4 ML SYRINGE SUBCUT (08:05)
[2024-06-26] MEDS: FAMOTIDINE 20 MG/2 ML VIAL IV ×2 (08:05→21:19)
[2024-06-26] MEDS: SODIUM CHLORIDE 0.9% FLUSH 10 ML IV ×4 (08:07→23:10)
[2024-06-26] MEDS: THIAMINE 100 MG in SODIUM CHLORIDE 0.9% 100 ML 404 MG IV (09:03)
[2024-06-26] MEDS: CARBOXYMETHYLCELLULOSE DROPS 1 DROPS EYE-BOTH (09:03)
--- NOTE | 2024-06-26 09:25 | DI.RAD.S_ITS ---
PROCEDURE: XR CHEST 1V INDICATIONS: PNA TECHNIQUE: One view of the chest was acquired. COMPARISON: [facility], CR, XR CHEST FOR PICC 1V, 06/26/2024, 9:46. [facility], CR, XR CHEST 1V, 06/25/2024, 14:32. [facility], CR, XR CHEST 1V, 06/25/2024, 9:31. FINDINGS: Surgical changes and devices: ET tube projects over the mid trachea. Enteric tube is below the field of view. Lungs and pleura: Possible mild basal lung opacities, a lateral view could be helpful. No pleural effusions. Mediastinum: Normal heart size, unchanged. Bones and chest wall: Unremarkable IMPRESSION: Possible mild basal lung opacities, a lateral view could be helpful. ET tube projects over the mid trachea. Enteric tube is beyond the field of view. Dictated by: Rohit Rodriguez M.D. on 06/26/2024 at 9:12 Approved by: Rohit Rodriguez M.D. on 06/26/2024 at 9:14
--- NOTE | 2024-06-26 09:48 | DI.RAD.S_ITS ---
PROCEDURE: XR CHEST FOR PICC 1V INDICATIONS: OG placement COMPARISON: [facility], ANABELLA, XR CHEST 1V, 06/26/2024, 9:15. [facility], ANABELLA, XR CHEST 1V, 06/25/2024, 14:32. Findings and impression: ET tube projects over the mid trachea. Enteric tube is seen, with tip projecting over the proximal stomach. Chest findings are separately dictated. Dictated by: Rohit Rodriguez M.D. on 06/26/2024 at 9:14 Approved by: Rohit Rodriguez M.D. on 06/26/2024 at 9:15
--- NOTE | 2024-06-26 09:56 | PM.PN.EICU ---
Subjective Subjective IF CAMERA ACTIVATED, patient seen via real-time interactive audiovisual communication: Camera activated Consent obtained for tele-lieutenant general care: Yes Patient Location: ICU Provider location (State): [place] Other participants/roles: rn Interval history: PT remains difficult to sedate even though he is on multiple agents,. Current Medications Current Medications Medications: Home Medications hydroxyzine HCl 25 mg tablet 25 mg PO BEDTIME #30 tabs 11/19/23 [Rx Confirmed 06/23/24] clonazepam 2 mg tablet 1 - 2 mg (0.5 - 1 x 2 mg) PO BID PRN anxiety or insomnia #60 tabs 02/04/24 [Rx Confirmed 06/23/24] propranolol 60 mg tablet 60 mg PO BID PRN for anxiety #180 tabs 05/03/24 [Rx Confirmed 06/23/24] Visit Medications (administered) Generic Name Dose Route Start Last Admin Trade Name Freq PRN Reason Stop Dose Admin Artificial Tears 1 drops 06/26/24 08:38 06/26/24 09:03 Carboxymethylcellulose Drops EYE-BOTH 1 drop PRN PRN Administration Dry Eye(s) Chlorhexidine Gluconate 15 ml 06/23/24 06:00 06/26/24 05:26 Chlorhexidine Gluconate 15 Ml Cup PO 15 ml Q6HR NILSA Administration Enoxaparin Sodium 40 mg 06/23/24 11:39 06/26/24 08:05 Enoxaparin 40 Mg/0.4 Ml Syringe SUBCUT 40 mg DAILY NILSA Administration Famotidine 20 mg 06/23/24 21:00 06/26/24 08:05 Famotidine 20 Mg/2 Ml Vial IV 20 mg BID NILSA Administration Folic Acid 1 mg 06/24/24 09:00 06/26/24 08:06 Folic Acid 1 Mg Tablet PO Not Given DAILY NILSA Hydralazine HCl 20 mg 06/24/24 15:11 06/25/24 00:14 Hydralazine 20 Mg/Ml Vial IV 20 mg Q6HR PRN Administration SBP over 170, DBP over 100 Propofol 1,000 mg in 100 mls @ 2.585 mls/hr 06/23/24 04:49 06/26/24 06:58 Diprivan IV 50 mcg/kg/min TITRATE NILSA 25.855 mls/hr Administration Protocol 5 MCG/KG/MIN Levetiracetam 500 mg/ Sodium 105 mls @ 420 mls/hr 06/23/24 16:00 06/26/24 05:10 Chloride IV Infused Q12H NILSA Infusion Thiamine HCl 100 mg/ Sodium 101 mls @ 404 mls/hr 06/24/24 09:00 06/26/24 09:03 Chloride IV 404 mls/hr DAILY NILSA Administration Cefepime HCl 2 gm/ Sodium 100 mls @ 200 mls/hr 06/24/24 11:30 06/26/24 04:05 Chloride IV Infused Q8H NILSA Infusion Metronidazole 500 mg in 100 mls @ 100 mls/hr 06/24/24 13:30 06/26/24 08:30 Flagyl IV 100 mls/hr Q6H NILSA Administration Dexmedetomidine HCl 800 mcg/ 100 mls @ 2.1 mls/hr 06/24/24 15:45 06/26/24 06:53 Sodium Chloride IV 1.2 mcg/kg/hr TITRATE NILSA 12.6 mls/hr Administration Protocol 0.2 MCG/KG/HR Vancomycin HCl 1,250 mg in 250 mls @ 250 mls/hr 06/25/24 07:00 06/26/24 07:04 Vancomycin IV 250 mls/hr Q8H NILSA Administration Midazolam HCl 50 mg/ Dextrose 50 mls @ 5 mls/hr 06/26/24 07:14 06/26/24 08:27 IV 10 mg/hr TITRATE PRN 10 mls/hr Alcohol Withdrawal Titration Protocol 5 MG/HR Multivitamins 1 tab 06/24/24 09:00 06/26/24 08:06 Multivitamin 1 Tablet PO Not Given DAILY NILSA Sodium Chloride 10 ml 06/24/24 09:00 06/26/24 08:07 Sodium Chloride 0.9% Flush IV 10 ml BID NILSA Administration Sodium Chloride 10 ml 06/23/24 23:15 06/25/24 00:22 Sodium Chloride 0.9% Flush IV 10 ml PRN PRN Administration Flush Objective Ventilator Parameters: Ventilator Settings FiO2 28 RT Vent Frequency 16 Ventilator Tidal Volume 530 Exhaled Vt/kg IBW 7 Positive End Expiratory 5 Pressure Inspiratory Phase Time 0.9 I:E Ratio 1:3.2 Patient Position HOB >= 30 degrees Labs 06/26/24 06:35 06/26/24 06:35 Labs: Laboratory Results - last 24 hr 06/26/24 06/26/24 06:35 09:00 WBC 15.9 H RBC 4.55 Hgb 14.9 Hct 42.3 MCV 92.9 MCH 32.6 MCHC 35.1 RDW 14.4 Plt Count 240 Neut % (Auto) 76.6 H Lymph % (Auto) 15.0 L [place] % (Auto) 6.8 Eos % (Auto) 1.2 L Baso % (Auto) 0.4 Neut # (Auto) 43084 H Lymph # (Auto) 2400 [place] # (Auto) 1100 H Eos # (Auto) 200 Baso # (Auto) 100 Sodium 135 L Potassium 3.2 L Chloride 108 H Carbon Dioxide 17 L BUN 4 L Creatinine 0.76 Estimated GFR > 60 BUN/Creatinine Ratio 5.3 L Glucose 101 H Calcium 8.3 L Vancomycin Peak 37.0 Vancomycin Trough 9.4 L Exam Vital Signs (past 8 hours): - 06/26/24 02:00 06/26/24 02:00 06/26/24 02:15 Temperature 100.4 F H 100.4 F H Pulse Rate 87 87 Respiratory Rate 21 14 Blood Pressure 147/90 H Pulse Oximetry 96 99 Oxygen Delivery Method 06/26/24 02:30 06/26/24 02:31 06/26/24 02:31 Temperature 100.4 F H 100.4 F H Pulse Rate 89 88 Respiratory Rate 16 26 H Blood Pressure 159/96 H Pulse Oximetry 97 97 Oxygen Delivery Method 06/26/24 02:45 06/26/24 03:00 06/26/24 03:00 Temperature 100.6 F H 100.6 F H Pulse Rate 82 79 Respiratory Rate 18 17 Blood Pressure 158/101 H Pulse Oximetry 98 98 Oxygen Delivery Method 06/26/24 03:15 06/26/24 03:30 06/26/24 03:30 Temperature 100.6 F H 100.8 F H Pulse Rate 85 70 Respiratory Rate 11 L 16 Blood Pressure 153/98 H Pulse Oximetry 96 97 Oxygen Delivery Method 06/26/24 03:45 06/26/24 04:00 06/26/24 04:00 Temperature 100.8 F H 100.8 F H Pulse Rate 68 69 Respiratory Rate 16 16 Blood Pressure 147/88 H Pulse Oximetry 97 96 Oxygen Delivery Method 06/26/24 04:00 06/26/24 04:15 06/26/24 04:30 Temperature 100.8 F H 100.8 F H Pulse Rate 75 75 Respiratory Rate 13 21 Blood Pressure Pulse Oximetry 97 96 Oxygen Delivery Method Mechanical Ventilation 06/26/24 04:30 06/26/24 04:39 06/26/24 04:39 Temperature 100.8 F H Pulse Rate 78 Respiratory Rate 16 Blood Pressure 159/102 H 159/101 H Pulse Oximetry 96 Oxygen Delivery Method 06/26/24 04:45 06/26/24 05:00 06/26/24 05:00 Temperature 100.8 F H 101.1 F H Pulse Rate 68 64 Respiratory Rate 16 16 Blood Pressure 143/88 H Pulse Oximetry 96 96 Oxygen Delivery Method 06/26/24 05:15 06/26/24 05:30 06/26/24 05:30 Temperature 100.9 F H 99.7 F H Pulse Rate 88 81 Respiratory Rate 28 H 27 H Blood Pressure 150/96 H Pulse Oximetry 90 L 95 Oxygen Delivery Method 06/26/24 05:45 06/26/24 06:00 06/26/24 06:00 Temperature 100.6 F H 100.8 F H Pulse Rate 73 58 L Respiratory Rate 11 L 11 L Blood Pressure 151/91 H Pulse Oximetry 95 97 Oxygen Delivery Method 06/26/24 06:15 06/26/24 06:30 06/26/24 06:30 Temperature 100.8 F H 100.9 F H Pulse Rate 57 L 84 Respiratory Rate 17 14 Blood Pressure 163/100 H Pulse Oximetry 97 97 Oxygen Delivery Method 06/26/24 06:45 06/26/24 07:00 06/26/24 07:00 Temperature 100.9 F H 100.9 F H Pulse Rate 57 L 58 L Respiratory Rate 7 L 16 Blood Pressure 151/91 H Pulse Oximetry 97 97 Oxygen Delivery Method 06/26/24 07:15 06/26/24 07:30 06/26/24 07:30 Temperature 101.1 F H 99.9 F H Pulse Rate 57 L 63 Respiratory Rate 16 6 L Blood Pressure 158/100 H Pulse Oximetry 97 96 Oxygen Delivery Method 06/26/24 07:45 06/26/24 08:00 06/26/24 08:00 Temperature Pulse Rate 69 Respiratory Rate 6 L Blood Pressure 168/99 H Pulse Oximetry 97 Oxygen Delivery Method Mechanical Ventilation 06/26/24 08:00 06/26/24 08:15 06/26/24 08:30 Temperature 101.7 F H 101.7 F H Pulse Rate 75 63 61 Respiratory Rate 14 12 11 L Blood Pressure Pulse Oximetry 97 96 97 Oxygen Delivery Method 06/26/24 08:30 06/26/24 08:41 Temperature 101.5 F H Pulse Rate Respiratory Rate Blood Pressure 157/94 H Pulse Oximetry Oxygen Delivery Method Fraction of Inspired Oxygen 21 Oxygen Delivery Method Mechanical Ventilation Oxygen Flow Rate 0 Narrative Exam Narrative: intubated agitated and not adequalkty sedated symmetric chest rise synchronous Quality TeleICU VTE Deep Vein Thrombosis/Pulmonary Embolism Present on Admission: No Assessment & Plan Assessment and plan (1) Overdose: Qualifiers: Encounter type: initial encounter Injury intent: accidental or unintentional Qualified Code(s): T50.901A - Poisoning by unspecified drugs, medicaments and biological substances, accidental (unintentional), initial encounter Status: Acute (2) Acute respiratory failure: Qualifiers: Respiratory failure complication: unspecified whether with hypoxia or hypercapnia Qualified Code(s): J96.00 - Acute respiratory failure, unspecified whether with hypoxia or hypercapnia Status: Acute (3) Acute hyperactive delirium due to multiple etiologies: Status: Acute (4) Withdrawal from recreational drug: Status: Acute Plan cont vent/sedation bunlde I will add ketamin GTT , and ketmaine push. this needs to run at 1.5mg/kg/hr or higer. anything less could actually make this worse as partial disassociation will triger worsneing agitation trend abg LTVV map goal >65 trend labs montitor UO dvt ppx empirc abx Time-Based Coding :: [35 min] spent with patient and on the chart (including review of chart, obtaining history, exam, reviewing outside data, placing orders, documenting exam and treatment plan, and counseling patient) on [06/26/24]. total critical care time = 35 min
--- NOTE | 2024-06-26 10:49 | DI.RAD.S_ITS ---
PROCEDURE: XR CHEST FOR PICC 1V INDICATIONS: PICC line placement COMPARISON: [facility], CR, XR CHEST FOR PICC 1V, 06/26/2024, 9:46. [facility], CR, XR CHEST 1V, 06/26/2024, 9:15. FINDINGS: PICC was placed by the intravenous therapy team from the left side. Fluoroscopic spot film demonstrates the tip of PICC projecting to the area of mid SVC. IMPRESSION: Tip of PICC projects to the area of mid SVC. Chest findings are separately dictated. Dictated by: Rohit Rodriguez M.D. on 06/26/2024 at 10:14 Approved by: Rohit Rodriguez M.D. on 06/26/2024 at 10:15
[2024-06-26] MEDS: KETAMINE IV ×4 (11:00→21:47)
[2024-06-26] MEDS: KETAMINE 500 MG/5 ML INJ 130 MG IV (11:00)
--- NOTE | 2024-06-26 11:08 | CM.DPNOTE ---
DCP Note SENIOR LANDSCAPE ARCHITECT reviewed EMR Per chart review/RN report, pt remains difficult to sedate while intubated. adding ketamin to the plan. RN concerned that pt is starting to withdrawal. getting PICC line today. Per hospitalist in morning rounds, pt likely to remain intubated for another day or so. if unable to successfully ex-tubate, may need to consider transferring to higher level of care. Girlfriend and multiple family members have been at pt's bedside throughout the day. SENIOR LANDSCAPE ARCHITECT following closely for bedside assessment (TANI assessment) with patient if he will allow. ANTONY Stark
[2024-06-26] MEDS: MIDAZOLAM 50 MG in DEXTROSE 5 % IN WATER 40 ML 8 MG IV (12:07)
[2024-06-26] MEDS: POTASSIUM CHLORIDE IN WATER 10 MEQ/100 ML PIGGYBACK 100 MEQ IV ×4 (12:44→15:56)
--- NOTE | 2024-06-26 14:33 | PC.NURSE ---
Addendum entered by Debi Love R.N. 06/26/24 17:27: Pt has required suctioning at least 2-4 times per hour, with both oral and deep endotrachal suctioning, copious amounts of thick, jamison-willard secretions. Copious amounts of mucus being suctioned from the mouth, with frequent oral care needed. Pt will wake during suctioning, opening eyes and trying to move head away from suction. RASS score is -3, no further needs at this time, care ongoing. Original Note: Report received from TYLER Vazquez. Pt had a very difficult night, was very restless, difficult to sedate, pt bucking the vent, thrashing in the bed, pulling at restraints, attempting to get ahold of ETT. Pt was maxed out on all sedation, and obviously going through ETOH withdrawal. Dr Carmona updated on pt status, new orders received for additional sedation (versed gtt, see emar), pt continued to wisdom vent, wake up and have a RASS of +2. Rounds performed with Dr Oreilly E-ICU, recommendations were to start a Ketamine gtt (after at bolus) for additional sedation. Further recommendations to not attempt extubation until pt is much calmer, able to follow commands, at the end of his alcohol withdrawal. Dr Carmona was agreeable to these recommendations. Family was updated on plans, care ongoing.
[2024-06-26] MEDS: MIDAZOLAM 50 MG in DEXTROSE 5 % IN WATER 40 ML 6 MG IV (21:05)
[2024-06-26] MEDS: HYDRALAZINE 20 MG/ML VIAL IV (23:09)
[2024-06-27] VITALS (100 sets, daily range): BP systolic 105–165; BP diastolic 58–104; PULSE 69–152; RESP 6–46; TEMP 36–38.1; O2SAT 81–99
[2024-06-27] MEDS: CHLORHEXIDINE GLUCONATE 15 ML CUP PO ×2 (00:24→05:40)
[2024-06-27] MEDS: SODIUM CHLORIDE 0.9% IV ×4 (00:24→13:19)
[2024-06-27] MEDS: DEXMEDETOMIDINE HCL IV ×3 (00:24→13:19)
[2024-06-27] MEDS: propofoL 1,000 MG/100 ML VIAL 25.855 MG IV ×3 (01:01→07:51)
[2024-06-27] MEDS: metroNIDAZOLE 500 MG/100 ML PIGGYBACK 100 MG IV ×2 (01:26→08:27)
[2024-06-27] MEDS: KETAMINE IV (01:38)
[2024-06-27] MEDS: CEFEPIME 2 GM in SODIUM CHLORIDE 0.9% 100 ML IV (03:20)
[2024-06-27] MEDS: levETIRAcetam 500 MG in SODIUM CHLORIDE 0.9% 100 ML 420 MG IV (04:31)
[2024-06-27] MEDS: MIDAZOLAM 50 MG in DEXTROSE 5 % IN WATER 40 ML 6 MG IV (05:52)
[2024-06-27] MEDS: VANCOMYCIN 1,250 MG/250 ML PIGGYBACK 250 MG IV (07:17)
--- NOTE | 2024-06-27 08:03 | PM.PN.1 ---
Subjective Subjective Interval history: Hospital course: Patient was admitted with an acute intoxication syndrome and appeared to have cocaine in his system. The patient has been intubated since the day of admission for initial airway protection. The patient did develop a fever as well as copious secretions with concern for aspiration pneumonia, and has been on antibiotics. The patient has grown staph aureus out of sputum with sensitivities pending. The patient does drink 3 bottles of liquor a day and appeared to go into a severe alcohol withdrawal starting on the evening of June 25. The patient has been on maximum dose Precedex, and propofol with the addition of Versed drips and ketamine on June 26. Have been discussing the possibility of transfer with the family for the last 2 days. His FiO2 has been 0.30, and the family has had a strong preference to keep him here if possible. If the patient does not clinically improve over the next 24 hours he will likely require transfer to a medical center with on-site Pulmonary to assist with extubation strategies. S: Intubated. Exam Vital Signs (past 8 hours): - 06/27/24 00:15 06/27/24 00:30 06/27/24 00:45 Temperature 97.0 F L 96.8 F L 96.8 F L Pulse Rate 81 81 81 Respiratory Rate Blood Pressure Pulse Oximetry 96 96 96 Oxygen Delivery Method Fraction of Inspired Oxygen 06/27/24 01:00 06/27/24 01:00 06/27/24 01:00 Temperature 96.8 F L Pulse Rate 81 81 Respiratory Rate 16 Blood Pressure 108/63 108/63 Pulse Oximetry 98 96 Oxygen Delivery Method Fraction of Inspired Oxygen 06/27/24 01:15 06/27/24 01:30 06/27/24 01:45 Temperature 97.0 F L 97.0 F L 97.0 F L Pulse Rate 80 80 80 Respiratory Rate Blood Pressure Pulse Oximetry 97 97 97 Oxygen Delivery Method Fraction of Inspired Oxygen 06/27/24 02:00 06/27/24 02:00 06/27/24 02:00 Temperature 97.2 F L Pulse Rate 80 80 Respiratory Rate 16 Blood Pressure 113/71 113/71 Pulse Oximetry 97 97 Oxygen Delivery Method Fraction of Inspired Oxygen 06/27/24 02:15 06/27/24 02:30 06/27/24 02:45 Temperature 97.2 F L 97.2 F L 97.3 F L Pulse Rate 80 81 81 Respiratory Rate Blood Pressure Pulse Oximetry 98 98 98 Oxygen Delivery Method Fraction of Inspired Oxygen 06/27/24 03:00 06/27/24 03:00 06/27/24 03:00 Temperature 97.3 F L Pulse Rate 81 81 Respiratory Rate 16 Blood Pressure 114/73 114/73 Pulse Oximetry 98 98 Oxygen Delivery Method Fraction of Inspired Oxygen 06/27/24 03:15 06/27/24 03:30 06/27/24 03:45 Temperature 97.5 F L 97.7 F 97.7 F Pulse Rate 82 82 83 Respiratory Rate Blood Pressure Pulse Oximetry 97 97 97 Oxygen Delivery Method Fraction of Inspired Oxygen 06/27/24 04:00 06/27/24 04:00 06/27/24 04:00 Temperature Pulse Rate 84 Respiratory Rate 16 Blood Pressure 117/73 117/73 Pulse Oximetry 97 Oxygen Delivery Method Mechanical Ventilation Fraction of Inspired Oxygen 06/27/24 04:00 06/27/24 04:15 06/27/24 04:30 Temperature 97.9 F 97.9 F 98.1 F Pulse Rate 84 84 83 Respiratory Rate Blood Pressure Pulse Oximetry 97 97 97 Oxygen Delivery Method Fraction of Inspired Oxygen 06/27/24 04:45 06/27/24 05:00 06/27/24 05:00 Temperature 98.2 F 98.2 F Pulse Rate 83 83 83 Respiratory Rate 16 Blood Pressure 121/78 Pulse Oximetry 97 97 97 Oxygen Delivery Method Fraction of Inspired Oxygen 06/27/24 05:00 06/27/24 05:15 06/27/24 05:30 Temperature 98.2 F 98.4 F Pulse Rate 83 83 Respiratory Rate Blood Pressure 121/78 Pulse Oximetry 98 98 Oxygen Delivery Method Fraction of Inspired Oxygen 06/27/24 05:45 06/27/24 06:00 06/27/24 06:00 Temperature 98.4 F 98.6 F Pulse Rate 82 82 Respiratory Rate Blood Pressure 125/83 Pulse Oximetry 98 98 Oxygen Delivery Method Fraction of Inspired Oxygen 06/27/24 06:15 06/27/24 06:30 06/27/24 06:45 Temperature 98.6 F 98.6 F 98.6 F Pulse Rate 83 84 85 Respiratory Rate Blood Pressure Pulse Oximetry 98 97 95 Oxygen Delivery Method Fraction of Inspired Oxygen 06/27/24 07:00 06/27/24 07:15 Temperature 98.6 F 98.6 F Pulse Rate 84 83 Respiratory Rate Blood Pressure Pulse Oximetry 96 96 Oxygen Delivery Method Fraction of Inspired Oxygen Fraction of Inspired Oxygen 28 Oxygen Delivery Method Mechanical Ventilation Oxygen Flow Rate 0 Narrative Exam Narrative: Intubated, sedated. Lungs are clear, normal rate and effort. Heart is regular, no murmur gallop or rub. Abdomen is soft, non distended. Extremities are free of edema. Objective Labs 06/27/24 08:15 06/27/24 08:15 Labs: Laboratory Results - last 24 hr 06/26/24 09:00 Vancomycin Peak 37.0 PFSH Medical History Seizure Anxiety Social History Smoking Status: Former smoker alcohol intake: current Assessment & Plan Assessment & Plan narrative: . Toxic encephalopathy, present on admission and improved. 2. Possible GPC bacteremia (1/2), new and active. 3. Aspiration pneumonia, new and active. Sputum culture reveals Staph aureus with sensitivity to follow. 4. History of seizure disorder, present on admission and stable. 5. Polysubstance overdose, present on admission and improved. 6. Hypernatremia, present on admission and improved. 7. New severe alcohol withdrawal, new and active. PLAN: -DVT and GI prophylaxis. -sedation vacation and breathing trial. Extubate if able. -cultures are MSSA, continue antibiotics. We will stop vancomycin. 40 minutes of critical care time spent. This included bedside care, review of all data and meeting with family. Code: Full, surrogate is not known at this time. DVT: Lovenox daily Time-Based Coding :: [TOTAL MINUTES] spent with patient and on the chart (including review of chart, obtaining history, exam, reviewing outside data, placing orders, documenting exam and treatment plan, and counseling patient) on [DATE]. Quality VTE Deep Vein Thrombosis/Pulmonary Embolism Present on Admission: No
[2024-06-27 08:40] LABS: Hematocrit 38.6 % (41-53); Hemoglobin 13.8 g/dL (13.5-17.5); Mean Corpuscular HGB Conc 35.8 % (30-36); Mean Corpuscular Hemoglobin 33.7 PG (26-34); Mean Corpuscular Volume 94.2 fL (80-100); Platelet Count 262 X10^3/uL (150-400); Red Cell Distribution Width 14.6 % (11.6-14.8); White Blood Cell Count 13.6 X10^3/uL (4.5-11.0)
[2024-06-27] MEDS: ENOXAPARIN 40 MG/0.4 ML SYRINGE SUBCUT (08:42)
[2024-06-27] MEDS: SODIUM CHLORIDE 0.9% FLUSH 10 ML IV ×2 (08:43→19:48)
[2024-06-27] MEDS: FAMOTIDINE 20 MG/2 ML VIAL IV (08:43)
[2024-06-27 08:55] LABS: Alanine Aminotransferase 20 IU/L (<50); Albumin 2.7 g/dL (3.5-5.0); Albumin Globulin Ratio 0.9 (1.0-2.8); Alkaline Phosphatase 77 U/L (38-126); Aspartate Aminotransferase 24 IU/L (17-59); BUN Creatinine Ratio 7.8 (6-22); Bilirubin Total 0.3 mg/dL (0.2-1.3); Blood Urea Nitrogen 4 mg/dL (9-20); Calcium 7.6 mg/dL (8.4-10.2); Carbon Dioxide 17 mmol/L (22-32); Chloride 110 mmol/L (98-107); Creatine Kinase 22 U/L (55-170); Estimated Glomerular Filt Rate > 60 mL/min (>60); Globulin 3.1 g/dL (1.7-4.1); Glucose 105 mg/dL (70-100); Potassium 3.5 mmol/L (3.4-5.1); Sodium 136 mmol/L (137-145); Total Protein 5.8 g/dL (6.3-8.2)
[2024-06-27 08:58] LABS: HEMOLYSIS 51 (0-50)
--- NOTE | 2024-06-27 08:58 | EKG_ITS ---
[facility] [address] [place] [address] Test Date: 2024-06-27 Pat Name: Tanika Booker Department: [facility] Room: 230 Gender: Male Trauma Surgeon: CURTIS : 1995 Requested By: Order Number: [id number] Reading MD: Rufus Carmona Measurements Intervals Secretary Rate: 79 P: 37 FL: 144 QRS: 74 QRSD: 94 T: 40 QT: 406 QTc: 465 Interpretive Statements Normal sinus rhythm Electronically Signed On 06-27-2024 14:33:15 PST by Rufus Carmona
--- NOTE | 2024-06-27 09:28 | P.TELICUPN_ITS ---
Subjective Subjective IF CAMERA ACTIVATED, patient seen via real-time interactive audiovisual communication: Camera activated Consent obtained for tele-director career services care: Yes Patient Location: ICU Provider location (State): Other participants/roles: MD, RN, RT Interval history: Pt on the vent, on Propfol 50, Versed 6 mg / hr and Precedex 1.5 mg, slowly opening eyes, following simple commands like squeezing hands, weaning off sedation, propfol turned off then Versed, keepin prcedex going , adding seroquel 100 mg x1. I/O - 2.8 L with improvement in CXR and resolution of the respiratory secretions. Switched to PS 8/5 and tv 400s, MSSA PNA and bactermia, switching antibiotics to Cefazolin 2 , repeated Blood cx neg, pending 2 D echo Assessment & Plan narrative: NEURO: # Acute encephalopathy -- CTH negative -- Sedation weaning as above -- On Keppra bid # Alcohol abuse -- thiamine, folic acid, and MTV -- Monitor closely for withdrawals -- Electrolyte replacement ( K & Mg getting replaced) RESP: # Acute respiratory failure # Aspiration PNA # Sepsis / MSSA PNA and bacetermia -- Intubated and sedated --SBT -- switching antibiotics to Cefazolin 2 , repeated Blood cx neg, pending check 2 D echo -- HOB elevation -- Aspiration precaution -- Goal SpO2 > 90% CVS: -- MAP goal > 65 ENDO: -- GOal BS < 180 VTE: Lovenox SQ SUP: Pepcid D/w bedside RN. Current Medications Current Medications Medications: Home Medications hydroxyzine HCl 25 mg tablet 25 mg PO BEDTIME #30 tabs 11/19/23 [Rx Confirmed 06/23/24] clonazepam 2 mg tablet 1 - 2 mg (0.5 - 1 x 2 mg) PO BID PRN anxiety or insomnia #60 tabs 02/04/24 [Rx Confirmed 06/23/24] propranolol 60 mg tablet 60 mg PO BID PRN for anxiety #180 tabs 05/03/24 [Rx Confirmed 06/23/24] Visit Medications (administered) Generic Name Dose Route Start Last Admin Trade Name Freq PRN Reason Stop Dose Admin Artificial Tears 1 drops 06/26/24 08:38 06/26/24 09:03 Carboxymethylcellulose Drops EYE-BOTH 1 drop PRN PRN Administration Dry Eye(s) Chlorhexidine Gluconate 15 ml 06/23/24 06:00 06/27/24 05:40 Chlorhexidine Gluconate 15 Ml Cup PO 15 ml Q6HR NILSA Administration Enoxaparin Sodium 40 mg 06/23/24 11:39 06/27/24 08:42 Enoxaparin 40 Mg/0.4 Ml Syringe SUBCUT 40 mg DAILY NILSA Administration Famotidine 20 mg 06/23/24 21:00 06/27/24 08:43 Famotidine 20 Mg/2 Ml Vial IV 20 mg BID NILSA Administration Folic Acid 1 mg 06/24/24 09:00 06/26/24 08:06 Folic Acid 1 Mg Tablet PO Not Given DAILY NILSA Hydralazine HCl 20 mg 06/24/24 15:11 06/26/24 23:09 Hydralazine 20 Mg/Ml Vial IV 20 mg Q6HR PRN Administration SBP over 170, DBP over 100 Propofol 1,000 mg in 100 mls @ 2.585 mls/hr 06/23/24 04:49 06/27/24 07:51 Diprivan IV 50 mcg/kg/min TITRATE NILSA 25.855 mls/hr Administration Protocol 5 MCG/KG/MIN Levetiracetam 500 mg/ Sodium 105 mls @ 420 mls/hr 06/23/24 16:00 06/27/24 04:46 Chloride IV Infused Q12H NILSA Infusion Thiamine HCl 100 mg/ Sodium 101 mls @ 404 mls/hr 06/24/24 09:00 06/26/24 09:18 Chloride IV Infused DAILY NILSA Infusion Cefepime HCl 2 gm/ Sodium 100 mls @ 200 mls/hr 06/24/24 11:30 06/27/24 04:38 Chloride IV Infused Q8H NILSA Infusion Metronidazole 500 mg in 100 mls @ 100 mls/hr 06/24/24 13:30 06/27/24 08:27 Flagyl IV 100 mls/hr Q6H NILSA Administration Dexmedetomidine HCl 800 mcg/ 100 mls @ 2.1 mls/hr 06/24/24 15:45 06/27/24 07:17 Sodium Chloride IV 0.75 mcg/kg/hr TITRATE NILSA 7.875 mls/hr Administration Protocol 0.2 MCG/KG/HR Vancomycin HCl 1,250 mg in 250 mls @ 250 mls/hr 06/25/24 07:00 06/27/24 08:44 Vancomycin IV Infused Q8H NILSA Infusion Midazolam HCl 50 mg/ Dextrose 50 mls @ 5 mls/hr 06/26/24 07:14 06/27/24 05:52 IV 6 mg/hr TITRATE PRN 6 mls/hr Alcohol Withdrawal Administration Protocol 5 MG/HR Ketamine HCl 1,000 mg/ Sodium 200 mls @ 25.86 mls/hr 06/26/24 10:30 06/27/24 01:38 Chloride IV 1.5 mg/kg/hr TITRATE NILSA 25.86 mls/hr Administration Protocol 1.5 MG/KG/HR Multivitamins 1 tab 06/24/24 09:00 06/26/24 08:06 Multivitamin 1 Tablet PO Not Given DAILY NILSA Sodium Chloride 10 ml 06/24/24 09:00 06/27/24 08:43 Sodium Chloride 0.9% Flush IV 10 ml BID NILSA Administration Sodium Chloride 10 ml 06/23/24 23:15 06/26/24 23:10 Sodium Chloride 0.9% Flush IV 10 ml PRN PRN Administration Flush Objective Ventilator Parameters: Ventilator Settings FiO2 28 RT Vent Frequency 16 Ventilator Tidal Volume 530 Exhaled Vt/kg IBW 7 Positive End Expiratory 5 Pressure Inspiratory Phase Time 0.9 I:E Ratio 1:3.1 Patient Position HOB >= 30 degrees Labs 06/27/24 08:15 06/27/24 08:15 Labs: Laboratory Results - last 24 hr 06/26/24 06/27/24 09:00 08:15 WBC 13.6 H RBC 4.10 L Hgb 13.8 Hct 38.6 L MCV 94.2 MCH 33.7 MCHC 35.8 RDW 14.6 Plt Count 262 Sodium 136 L Potassium 3.5 Chloride 110 H Carbon Dioxide 17 L BUN 4 L Creatinine 0.51 L Estimated GFR > 60 BUN/Creatinine Ratio 7.8 Glucose 105 H Calcium 7.6 L Total Bilirubin 0.3 AST 24 ALT 20 Alkaline Phosphatase 77 Total Creatine Kinase 22 L Total Protein 5.8 L Albumin 2.7 L Globulin 3.1 Albumin/Globulin Ratio 0.9 L Vancomycin Peak 37.0 Exam Vital Signs (past 8 hours): - 06/27/24 01:30 06/27/24 01:45 06/27/24 02:00 Temperature 97.0 F L 97.0 F L Pulse Rate 80 80 80 Respiratory Rate 16 Blood Pressure 113/71 Pulse Oximetry 97 97 97 Oxygen Delivery Method Fraction of Inspired Oxygen 06/27/24 02:00 06/27/24 02:00 06/27/24 02:15 Temperature 97.2 F L 97.2 F L Pulse Rate 80 80 Respiratory Rate Blood Pressure 113/71 Pulse Oximetry 97 98 Oxygen Delivery Method Fraction of Inspired Oxygen 06/27/24 02:30 06/27/24 02:45 06/27/24 03:00 Temperature 97.2 F L 97.3 F L Pulse Rate 81 81 Respiratory Rate Blood Pressure 114/73 Pulse Oximetry 98 98 Oxygen Delivery Method Fraction of Inspired Oxygen 06/27/24 03:00 06/27/24 03:00 06/27/24 03:15 Temperature 97.3 F L 97.5 F L Pulse Rate 81 81 82 Respiratory Rate 16 Blood Pressure 114/73 Pulse Oximetry 98 98 97 Oxygen Delivery Method Fraction of Inspired Oxygen 06/27/24 03:30 06/27/24 03:45 06/27/24 04:00 Temperature 97.7 F 97.7 F Pulse Rate 82 83 Respiratory Rate Blood Pressure Pulse Oximetry 97 97 Oxygen Delivery Method Mechanical Ventilation Fraction of Inspired Oxygen 06/27/24 04:00 06/27/24 04:00 06/27/24 04:00 Temperature 97.9 F Pulse Rate 84 84 Respiratory Rate 16 Blood Pressure 117/73 117/73 Pulse Oximetry 97 97 Oxygen Delivery Method Fraction of Inspired Oxygen 06/27/24 04:15 06/27/24 04:30 06/27/24 04:45 Temperature 97.9 F 98.1 F 98.2 F Pulse Rate 84 83 83 Respiratory Rate Blood Pressure Pulse Oximetry 97 97 97 Oxygen Delivery Method Fraction of Inspired Oxygen 06/27/24 05:00 06/27/24 05:00 06/27/24 05:00 Temperature 98.2 F Pulse Rate 83 83 Respiratory Rate 16 Blood Pressure 121/78 121/78 Pulse Oximetry 97 97 Oxygen Delivery Method Fraction of Inspired Oxygen 06/27/24 05:15 06/27/24 05:30 06/27/24 05:45 Temperature 98.2 F 98.4 F 98.4 F Pulse Rate 83 83 82 Respiratory Rate Blood Pressure Pulse Oximetry 98 98 98 Oxygen Delivery Method Fraction of Inspired Oxygen 06/27/24 06:00 06/27/24 06:00 06/27/24 06:15 Temperature 98.6 F 98.6 F Pulse Rate 82 83 Respiratory Rate Blood Pressure 125/83 Pulse Oximetry 98 98 Oxygen Delivery Method Fraction of Inspired Oxygen 06/27/24 06:30 06/27/24 06:45 06/27/24 07:00 Temperature 98.6 F 98.6 F 98.6 F Pulse Rate 84 85 84 Respiratory Rate Blood Pressure Pulse Oximetry 97 95 96 Oxygen Delivery Method Fraction of Inspired Oxygen 06/27/24 07:15 06/27/24 07:30 06/27/24 07:30 Temperature 98.6 F 98.4 F Pulse Rate 83 80 Respiratory Rate Blood Pressure 130/86 Pulse Oximetry 96 97 Oxygen Delivery Method Fraction of Inspired Oxygen 06/27/24 07:45 06/27/24 08:00 Temperature 98.4 F 98.4 F Pulse Rate 77 76 Respiratory Rate Blood Pressure Pulse Oximetry 97 97 Oxygen Delivery Method Fraction of Inspired Oxygen Fraction of Inspired Oxygen 28 Oxygen Delivery Method Mechanical Ventilation Oxygen Flow Rate 0 Quality TeleICU VTE Deep Vein Thrombosis/Pulmonary Embolism Present on Admission: No Assessment & Plan Time-Based Coding :: [TOTAL MINUTES] spent with patient and on the chart (including review of chart, obtaining history, exam, reviewing outside data, placing orders, documenting exam and treatment plan, and counseling patient) on [DATE].
--- NOTE | 2024-06-27 09:52 | PC.NURSE ---
Addendum entered by Natalie Jeter R.N. 06/27/24 18:31: 1700 pt reporting 10/10 chest pain I have four buses sitting on my chest. BP remains WDL, HR 120's ST, provider notified. EKG obtained, troponin obtained. Provider at bedside. CIWA 14. New orders received. Pt reports less chest pain and less anxiety. 1800 HR in 140's-150's sustained. Provider notified. New orders received. [address] Pt asking, When do I get more benzos? Pt educated on CIWA protocol, CIWA currently 6. Pt attempting to use bedpan. Care ongoing. Addendum entered by Natalie Jeter R.N. 06/27/24 12:14: Pt pulled monitoring equipment off, telemetry, pulse oximeter, etc. and declines replacing. Friends at bedside, reorienting pt. Pt agreeable to repositioning up in bed, elevating HOB. Pt tolerating sips of water, agreed to place pulse oximeter and BP cuff back on, declining telemetry. Pulse ox 98% on RA. BP 127/88. Care ongoing. Addendum entered by Nataile Jeter R.N. 06/27/24 11:49: Pt attempting to exit bed, eyes closed. Pt yelling at nursing staff, struck this RN's hand when attempting to remove urinary catheter. Pt reoriented several times, pt stating, this is all fake, I'm going to kill all of you in this room. Charge nurse at bedside with this RN, pt reoriented, explanation on situation, place, and plan of care. Pt dangling legs over side of bed, unable to stay sitting up. Family at bedside attempting to reorient pt. Pt still stating, This isn't real, this is all AI. You killed my parents. GF and friend at bedside, attempting to reorient. Provider notified. Care ongoing. Addendum entered by Natalie Jeter R.N. 06/27/24 11:13: Pt is stating, You're all AI generated, this isn't real. Pt reoriented to room, to his parents, to this RN, place, and situation. Pt continues to express agitation, pulling tubes and cords. Pt reoriented again, repeating, This isn't real. This isn't my mom. Pt reassured of safety, situation explained to pt of how he was admitted. Care ongoing Original Note: Dr. Landry eICU provider virtually at bedside. Pt following simple commands, nodding head, tracking visually. Pt on pressure support at [address] Landry, RT at bedside, pt tolerating well. Propofol off at 0937, midazolam off at 0945. Pt following commands. Dr. Landry and Dr. Carmona (hospitalist) in agreement. Pt extubated at 1017, copious secretions. Pt verbally communicating, following commands, taking deep breaths. Care ongoing, this RN at bedside.
[2024-06-27] MEDS: QUETIAPINE 25 MG TABLET 100 MG TUBE (10:03)
--- NOTE | 2024-06-27 10:47 | PM.EVENT ---
Event Note Date Patient Seen: 06/27/24 Time Patient Seen: 10:15 Event Note (Rapid Response, Code, or fall): Patient did well with a sedation vacation and breathing trial. Patient was suctioned and extubated without difficulty. Patient was oxygenating well on room air.
[2024-06-27] MEDS: CEFAZOLIN 2 GM/100 ML PREMIX 100 ML IV ×2 (13:19→18:12)
[2024-06-27] MEDS: HYDRALAZINE 20 MG/ML VIAL IV (14:01)
[2024-06-27] MEDS: BENZOCAINE/MENTHOL 1 LOZ PKT 1 EACH PO (15:24)
[2024-06-27] MEDS: CARBOXYMETHYLCELLULOSE DROPS 1 DROPS EYE-BOTH (15:27)
[2024-06-27] MEDS: LORazepam 2 MG/ML INJ 1 MG IV (16:22)
--- NOTE | 2024-06-27 16:24 | EKG_ITS ---
[facility] [address] [place] [address] Test Date: 2024-06-27 Pat Name: Tanika Booker Department: [facility] Room: 230 Gender: Male Security Inspector: CURTIS : 1995 Requested By: Order Number: [id number] Reading MD: Shane Delgado MD Measurements Intervals [place] Rate: 124 P: [place]: 88 QRS: 78 QRSD: 94 T: 40 QT: 426 QTc: 612 Interpretive Statements Critical Test Result: Long QTc Sinus tachycardia with short [place] Cannot rule out Inferior infarct , age undetermined Electronically Signed On 06-28-2024 8:03:17 PST by Shane Delgado MD
[2024-06-27] MEDS: LORazepam 2 MG/ML INJ IV ×3 (17:05→23:20)
[2024-06-27 17:41] LABS: Troponin I < 0.012 ng/mL (0.01-0.034)
--- NOTE | 2024-06-27 17:43 | PM.ICURNDS ---
- :: This patient was seen via real time interactive two-way audiovisual telecommunication. Note: Pt was extubated , on RA, pt received 3 mg of Ativan and on prcedex for anxiety and agitation, now comfortable in bed chatting with family. Starting Clonazepam 2 mg bid and clonidine 0.2 mg TID, continue prcedex and ativan prn.
[2024-06-27] MEDS: ACETAMINOPHEN 325 MG TABLET 650 MG PO (17:53)
[2024-06-27] MEDS: METOPROLOL TARTRATE 5 MG/5 ML INJ IV (18:12)
[2024-06-27] MEDS: PROPRANOLOL 10 MG TABLET 60 MG PO ×2 (18:12→20:42)
[2024-06-27] MEDS: clonazePAM 0.5 MG TABLET 2 MG PO (20:43)
[2024-06-28] VITALS (71 sets, daily range): BP systolic 128–161; BP diastolic 74–107; PULSE 92–115; RESP 15–39; TEMP 37.4–37.7; O2SAT 93–99; BMI 23.6
[2024-06-28] MEDS: LORazepam 2 MG/ML INJ IV ×5 (01:59→23:40)
[2024-06-28] MEDS: DEXMEDETOMIDINE HCL IV (02:00)
[2024-06-28] MEDS: SODIUM CHLORIDE 0.9% IV (02:00)
[2024-06-28] MEDS: CEFAZOLIN 2 GM/100 ML PREMIX 100 ML IV ×3 (02:48→18:51)
[2024-06-28] MEDS: LORazepam 2 MG/ML INJ 1 MG IV ×4 (03:32→17:59)
[2024-06-28] MEDS: CALCIUM CARBONATE 500 MG TAB 1000 MG PO (04:29)
[2024-06-28 04:45] LABS: Hematocrit 41.2 % (41-53); Hemoglobin 14.3 g/dL (13.5-17.5); Mean Corpuscular HGB Conc 34.7 % (30-36); Mean Corpuscular Hemoglobin 32.2 PG (26-34); Mean Corpuscular Volume 92.8 fL (80-100); Platelet Count 358 X10^3/uL (150-400); Red Blood Cell Count 4.44 X10^6/uL (4.5-5.9); Red Cell Distribution Width 14.5 % (11.6-14.8); White Blood Cell Count 14.8 X10^3/uL (4.5-11.0)
[2024-06-28 04:55] LABS: Alanine Aminotransferase 23 IU/L (<50); Albumin 3.4 g/dL (3.5-5.0); Alkaline Phosphatase 92 U/L (38-126); Aspartate Aminotransferase 27 IU/L (17-59); BUN Creatinine Ratio 10.5 (6-22); Bilirubin Total 0.5 mg/dL (0.2-1.3); Blood Urea Nitrogen 6 mg/dL (9-20); Calcium 8.7 mg/dL (8.4-10.2); Carbon Dioxide 22 mmol/L (22-32); Chloride 106 mmol/L (98-107); Estimated Glomerular Filt Rate > 60 mL/min (>60); Globulin 3.5 g/dL (1.7-4.1); Glucose 113 mg/dL (70-100); HEMOLYSIS < 15 (0-50); Potassium 2.8 mmol/L (3.4-5.1); Sodium 138 mmol/L (137-145); Total Protein 6.9 g/dL (6.3-8.2)
[2024-06-28] MEDS: POTASSIUM CHLORIDE 20 MEQ/15 ML UDC 40 MEQ PO (06:19)
--- NOTE | 2024-06-28 07:03 | PC.NURSE ---
Audio Operator Note-Patient has been awake throughout the night, S.O. and friend in room, very attentive. CIWA 7-14, Precedex infusing, IV Ativan given per protocol along with scheduled clonazepam and propranolol. SR/ST, remains on RA with SpO2 >97%, has persistent cough, sx sputum on own. Had BM using bedpan, voiding without difficulty.
[2024-06-28] MEDS: ENOXAPARIN 40 MG/0.4 ML SYRINGE SUBCUT (09:06)
[2024-06-28] MEDS: POTASSIUM CHLORIDE IN WATER 10 MEQ/100 ML PIGGYBACK 100 MEQ IV ×6 (09:06→16:22)
[2024-06-28] MEDS: SODIUM CHLORIDE 0.9% FLUSH 10 ML IV ×3 (09:07→21:01)
--- NOTE | 2024-06-28 09:36 | DIET.CONS ---
Dietary Consultation Note Admission Date: 06/23/2024 07:57 Assessment: RD f/u. Pt extubated yesterday morning. Diet order placed yesterday for lunch. CIWA 8-14. Spoke to RN, pt hasn't had much to eat since extubated, has been having reflux with some foods provided and nausea. Did not tolerate smoothie this morning, had some bites of pudding. Unit host called pt's room and pt and girlfriend placed preferences for lunch order for bland food items. Open to Ensure clear, which was added to tray. No recent weight loss noted. Limited recent chart weights. Per hospitalists note, pt drinks 3 fifths of liquor a day for past 2 months. Ht: 177.8 cm Wt: 84.6 kg BMI: 26.5 UBW: 79.492 kg on 11/14/23, 99 kg in [id number] Last BM: 06/28/24 (06/28/24 01:30) MNA: 14 Armani Score: 16 Diet: 06/27/24 Lunch General (Regular) Diet Diet Modifications: Food Texture: Level 7 - Regular Liquid Consistency: Level 0 - Thin Labs: RBC 4.44 X10^6/uL (4.5-5.9) L 06/28/24 04:30 Hgb 14.3 g/dL (13.5-17.5) 06/28/24 04:30 Hct 41.2 % (41-53) 06/28/24 04:30 Creatinine 0.57 mg/dL (0.66-1.25) L 06/28/24 04:30 Lactate 1.4 mmol/L (0.7-2.1) 06/23/24 06:55 Nutrition Diagnosis: -Excessive ETOH intake r/t alcohol misuse aeb intake of 3 fifth liquor per day for past 2 months -Inadequate oral intake r/t previous NPO status while on vent and current reflux/nausea aeb <50% EER for 5 days, CIWA 8-14 Interventions: 1. trial clear Ensure EER: 2100kcals (25kcal/kg per BMI), 90g PRO (1g/kg) Monitoring/Evaluations: Will f/u with pt in regards to PO tolerance/ ONS tolerance. Electronically Signed by: Siobhan Jones 06/28/24 09:[address] [address]
[2024-06-28 09:48] LABS: Magnesium 1.5 mg/dL (1.6-2.3)
[2024-06-28] MEDS: PROPRANOLOL 10 MG TABLET 60 MG PO ×2 (10:56→21:00)
[2024-06-28] MEDS: chlordiazePOXIDE 25 MG CAPSULE PO ×3 (11:58→21:00)
--- NOTE | 2024-06-28 13:36 | P.TELICUPN_ITS ---
Subjective Subjective IF CAMERA ACTIVATED, patient seen via real-time interactive audiovisual communication: Camera activated Consent obtained for tele-dimension specification inspector care: Yes Patient Location: ICU Provider location (State): [place] Other participants/roles: rn Interval history: Pt remains on precedx, but seems ot be imrpoving. He is interactive but is still on quite a high dose. Current Medications Current Medications Medications: Home Medications hydroxyzine HCl 25 mg tablet 25 mg PO BEDTIME #30 tabs 11/19/23 [Rx Confirmed 06/23/24] clonazepam 2 mg tablet 1 - 2 mg (0.5 - 1 x 2 mg) PO BID PRN anxiety or insomnia #60 tabs 02/04/24 [Rx Confirmed 06/23/24] propranolol 60 mg tablet 60 mg PO BID PRN for anxiety #180 tabs 05/03/24 [Rx Confirmed 06/23/24] Visit Medications (administered) Generic Name Dose Route Start Last Admin Trade Name Freq PRN Reason Stop Dose Admin Acetaminophen 650 mg 06/27/24 17:44 06/27/24 17:53 Acetaminophen 325 Mg Tablet PO 650 mg Q4H PRN Administration Fever/Mild Pain (1-3) Artificial Tears 1 drops 06/26/24 08:38 06/27/24 15:27 Carboxymethylcellulose Drops EYE-BOTH 1 drop PRN PRN Administration Dry Eye(s) Benzocaine 1 each 06/27/24 15:03 06/27/24 15:24 Benzocaine/Menthol 1 Surendra Pkt PO 1 each Q1HR PRN Administration Sore Throat Calcium Carbonate 1,000 mg 06/28/24 04:03 06/28/24 04:29 Calcium Carbonate 500 Mg Tab PO 1,000 mg Q4HR PRN Administration Dyspepsia Chlordiazepoxide HCl 25 mg 06/28/24 11:15 06/28/24 11:58 Chlordiazepoxide 25 Mg Capsule PO 25 mg TID NILSA Administration Clonazepam 2 mg 06/27/24 21:00 06/28/24 09:00 Clonazepam 0.5 Mg Tablet PO Not Given BID NILSA Enoxaparin Sodium 40 mg 06/23/24 11:39 06/28/24 09:06 Enoxaparin 40 Mg/0.4 Ml Syringe SUBCUT 40 mg DAILY NILSA Administration Folic Acid 1 mg 06/28/24 09:00 06/28/24 11:13 Folic Acid 1 Mg Tablet PO Not Given DAILY NILSA Hydralazine HCl 20 mg 06/24/24 15:11 06/27/24 14:01 Hydralazine 20 Mg/Ml Vial IV 20 mg Q6HR PRN Administration SBP over 170, DBP over 100 Dexmedetomidine HCl 800 mcg/ 100 mls @ 2.1 mls/hr 06/24/24 15:45 06/28/24 12:39 Sodium Chloride IV 0 mcg/kg/hr TITRATE NILSA 0 mls/hr Titration Protocol 0.2 MCG/KG/HR Cefazolin Sodium/Dextrose 100 mls @ 200 mls/hr 06/27/24 11:00 06/28/24 11:50 Ancef IV Infused Q8H NILSA Infusion POTASSIUM CHLORIDE IN WATER 10 meq in 100 mls @ 100 mls/hr 06/28/24 08:15 06/28/24 13:04 Potassium Cl 10 Meq/100 Ml Zena IV 06/28/24 14:14 100 mls/hr Q1H NILSA Administration Protocol Lorazepam 1 mg 06/27/24 16:18 06/28/24 11:57 Lorazepam 2 Mg/Ml Inj IV 1 mg Q2HR PRN Administration anxiety or chest pain Lorazepam 0 mg 06/27/24 17:04 06/28/24 06:19 Lorazepam 2 Mg/Ml Inj IV 2 mg CIWAPRN PRN Administration Alcohol Withdrawal Protocol Multivitamins 1 tab 06/28/24 09:00 06/28/24 11:14 Multivitamin 1 Tablet PO Not Given DAILY NILSA Propranolol HCl 60 mg 06/27/24 17:55 06/28/24 10:56 Propranolol 10 Mg Tablet PO 60 mg BID NILSA Administration Sodium Chloride 10 ml 06/24/24 09:00 06/28/24 09:07 Sodium Chloride 0.9% Flush IV 10 ml BID NILSA Administration Sodium Chloride 10 ml 06/23/24 23:15 06/26/24 23:10 Sodium Chloride 0.9% Flush IV 10 ml PRN PRN Administration Flush Thiamine HCl 100 mg 06/28/24 09:00 06/28/24 11:14 Thiamine 100 Mg Tablet PO 07/01/24 09:01 Not Given DAILY NILSA Objective Ventilator Parameters: Ventilator Settings FiO2 28 RT Vent Frequency 16 Ventilator Tidal Volume 530 Exhaled Vt/kg IBW 7 Positive End Expiratory 5 Pressure Inspiratory Phase Time 0.9 I:E Ratio 1:3.1 Patient Position HOB >= 30 degrees Labs 06/28/24 04:30 06/28/24 04:30 Labs: Laboratory Results - last 24 hr 06/27/24 06/28/24 17:00 04:30 WBC 14.8 H RBC 4.44 L Hgb 14.3 Hct 41.2 MCV 92.8 MCH 32.2 MCHC 34.7 RDW 14.5 Plt Count 358 Sodium 138 Potassium 2.8 L Chloride 106 Carbon Dioxide 22 BUN 6 L Creatinine 0.57 L Estimated GFR > 60 BUN/Creatinine Ratio 10.5 Glucose 113 H Calcium 8.7 Magnesium 1.5 L Total Bilirubin 0.5 AST 27 ALT 23 Alkaline Phosphatase 92 Troponin I < 0.012 Total Protein 6.9 Albumin 3.4 L Globulin 3.5 Albumin/Globulin Ratio 1.0 Exam Vital Signs (past 8 hours): - 06/28/24 06:45 06/28/24 07:00 06/28/24 07:15 Temperature Pulse Rate 106 H 104 H 100 H Respiratory Rate 22 28 H 31 H Blood Pressure 143/88 H Pulse Oximetry 97 97 06/28/24 07:30 06/28/24 07:41 06/28/24 07:41 Temperature Pulse Rate 102 H 102 H Respiratory Rate 21 24 Blood Pressure 136/90 Pulse Oximetry 97 97 06/28/24 07:45 06/28/24 08:00 06/28/24 08:00 Temperature Pulse Rate 105 H 102 H Respiratory Rate 33 H 18 Blood Pressure 143/92 H Pulse Oximetry 99 97 06/28/24 08:15 06/28/24 08:30 06/28/24 08:45 Temperature Pulse Rate 101 H 102 H 106 H Respiratory Rate 20 26 H 29 H Blood Pressure Pulse Oximetry 98 97 99 06/28/24 09:00 06/28/24 09:15 06/28/24 09:30 Temperature Pulse Rate 103 H 100 H 101 H Respiratory Rate 29 H 29 H 27 H Blood Pressure Pulse Oximetry 97 93 98 06/28/24 09:45 06/28/24 10:00 06/28/24 10:00 Temperature Pulse Rate 107 H 103 H Respiratory Rate 31 H 26 H Blood Pressure 137/89 Pulse Oximetry 97 98 06/28/24 10:08 06/28/24 10:08 06/28/24 10:15 Temperature 99.8 F H 99.5 F Pulse Rate 108 H Respiratory Rate 29 H Blood Pressure Pulse Oximetry 96 06/28/24 10:30 06/28/24 10:32 06/28/24 10:32 Temperature Pulse Rate 106 H 104 H Respiratory Rate 35 H 26 H Blood Pressure 153/95 H Pulse Oximetry 97 97 06/28/24 10:45 06/28/24 11:00 06/28/24 11:15 Temperature Pulse Rate 103 H 115 H 100 H Respiratory Rate 35 H 32 H 29 H Blood Pressure Pulse Oximetry 98 98 98 06/28/24 11:30 06/28/24 11:45 06/28/24 12:00 Temperature Pulse Rate 102 H 102 H Respiratory Rate 21 30 H Blood Pressure 144/95 H Pulse Oximetry 97 98 06/28/24 12:00 06/28/24 12:00 06/28/24 12:15 Temperature 99.4 F Pulse Rate 98 H 100 H Respiratory Rate 27 H 39 H Blood Pressure Pulse Oximetry 98 99 06/28/24 12:30 06/28/24 12:33 06/28/24 12:33 Temperature Pulse Rate 95 H 96 H Respiratory Rate 23 21 Blood Pressure 138/91 H Pulse Oximetry 98 97 Fraction of Inspired Oxygen 28 Oxygen Delivery Method Room Air Oxygen Flow Rate 0 Narrative Exam Narrative: awake NAD conversive with staff Quality TeleICU VTE Deep Vein Thrombosis/Pulmonary Embolism Present on Admission: No Assessment & Plan Assessment and plan (1) Withdrawal from recreational drug: Status: Acute (2) Acute hyperactive delirium due to multiple etiologies: Status: Acute (3) Acute respiratory failure: Qualifiers: Respiratory failure complication: unspecified whether with hypoxia or hypercapnia Qualified Code(s): J96.00 - Acute respiratory failure, unspecified whether with hypoxia or hypercapnia Status: Acute (4) Overdose: Qualifiers: Encounter type: initial encounter Injury intent: accidental or unintentional Qualified Code(s): T50.901A - Poisoning by unspecified drugs, medicaments and biological substances, accidental (unintentional), initial encounter Status: Acute Plan continue precedex ciwa protocl librium adat thiamine and folic acid trend labs monitor UO dvt ppx started ppi for nausea/gerd Time-Based Coding :: 35] spent with patient and on the chart (including review of chart, obtaining history, exam, reviewing outside data, placing orders, documenting exam and treatment plan, and counseling patient) on [06/28/24.
[2024-06-28] MEDS: MAGNESIUM SULFATE 2 GM/50 ML PIGGYBACK IV (14:14)
[2024-06-28] MEDS: PANTOPRAZOLE 40 MG VIAL IV (14:16)
[2024-06-28] MEDS: MAG HYDROX/ALUM/SIMETH 30 ML UDC PO ×2 (15:18→21:20)
--- NOTE | 2024-06-28 15:52 | CM.SWNOTE ---
DCP/TANI note INDUSTRIAL SAFETY AND HEALTH MANAGER reviewed EMR. Per chart review, CIWA of 3-14 throughout the day today. Per RN, precedex stopped, switching to librium. pt has been on room air. less/minimally confused today. Multiple family members at bedside throughout day. INDUSTRIAL SAFETY AND HEALTH MANAGER entered room and introduced self and role. Pt accompanied by dad Gilberto and mom Sola. Pt and this INDUSTRIAL SAFETY AND HEALTH MANAGER met individually in room. See below brief TANI assessment for details. Pt denies hx of SI/SA. Pt reports benzodiazepine use started a few years ago after something really bad happened to a friend as a way to cope with it all. Pt denies wanting OP/INPT TANI/MH resources or information at this time. He claims between his family, friends, and [employer] club he will have enough social support and stubbornness to stay sober. I never want to drink again. Pt either has memory impairments or is hesitant to report details of history of drug use to this INDUSTRIAL SAFETY AND HEALTH MANAGER at this time. Pt appeared surprised and confused when this INDUSTRIAL SAFETY AND HEALTH MANAGER told him his tox screen in the ED upon admission tested positive for Antidepressants, amphetamines, meth, MDMA ecstasy, benzos, cocaine and ETOH= BAL 224. Pt reports feeling nauseated throughout the day and hopes to be able to eat more/get out of bed over next 24 hours. Pt lives alone in [place] and has been with current girlfriend for 6 months. Pt expressed a lot of gratitude for girlfriend/friend for getting him to hospital. Pt agreed to speak with this INDUSTRIAL SAFETY AND HEALTH MANAGER again tomorrow. P: Medical POC continues. anticipate home with family and friend support when medically stable. INDUSTRIAL SAFETY AND HEALTH MANAGER team will continue to offer TANI/MH resources. CM team will continue to follow in case DCP needs arise. ANTONY Stark Discharge Planning/Care Management/TANI Brief Assessment INDUSTRIAL SAFETY AND HEALTH MANAGER - Bilingual Manager Assessment Start: 06/28/24 15:25 Freq: Status: Active Protocol: Document 06/28/24 15:26 STEFANIE (Rec: 06/28/24 15:49 STEFANIE [id number]) INDUSTRIAL SAFETY AND HEALTH MANAGER/Bilingual Manager Assessment Start date 06/28/24 Visit Start Time 14:45 End date 06/28/24 Visit End Time 15:15 Total time Care Management spent on 30 minutes patient visit-in minutes Presenting Problem going through active withdrawal following accidental overdose, admitted to the ICU, requried intubation for a few days. Tox screen + for: Antidepressants , amphetamines, meth, MDMA ecstasy, benzos, cocaine and ETOH= BAL 224. Precipitating Event(s) PJ democrat with friends Patient Strengths numerous supportive social networks, including family, friends, girlfriend, and biker club. Self proclaimed stubborn. Current Behavioral Health Provider(s) denies hx of MH/BH treatment Include Facility, Provider, Ph. # Family Hx of Behavioral Abuse denies hx Rehab Facilities? ((Date(s), Location(s) denies hx ) History of Withdrawal? Seizures? 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 unsure of specific date. Stated Mood tired but better Affect (Congruent with Mood?) congruent. flat affect. Thought Content - Specify/Describe Primarily WNL. Pt ruminnated Obsessions, Delusions, Hallucinations on his hx of his biker club and the support he gets there. Pt continued to bring up the biker club even when this INDUSTRIAL SAFETY AND HEALTH MANAGER questioned him on topics unrelated to the [employer] club. Thought Processes (Ubyfamq-Zogmaapc-Vydz mostly logical/goal oriented/ Kbdzhcyq-Kfhiwuws-Udristhjpw- directed. minimally tangential Wokfvtibtgvkdm-Uxulirl-Gjhrkzmdvfwo- when rumminating on biker Thought Blocking) club. Speech (Uoxilt-Sgor-Bdjtiej-Rapid-Soft- slow, slurred, quiet Loud-Pressured) Motor (Arslxo-Swlrsuesr-Nsvs-Other) WNL Insight (Kyhm-Ubmp-Jerg/Limited) fair to poor at this time. reflected on how alcohol and drug use led him to this point in his physical health. pt reports being unsure how methamphetamies/MDMA could have ended up in his ED tox screen. the cocaine must have been laced. reports the cocaine use is recent (a few weeks) but did not remember exactly when. Unable or unwilling to report in detail hx of alcohol/benzodiazepine use. adament that he plans to quit use of all substances. adament that he does not require MH/BH/rehab either INPT or OP resources to quit. Adament that he can manage abstainance from social support and stubbornness. Judgement (Firr-Ixzu-Owdd/Limited) fair at this time. reflected on how alcohol and drug use led him to this point in his physical health. adament that he plans to quit use of all substances. Impulse Control (Adequate-Impaired) Adequate at this time Memory (Zyrnutpil-Cvqgrr-Czbxyg, unclear if memory is impaired Impaired-Intact) or pt unwilling to disclose details of his polysubstance use at this time. Concentration (Intact-Impaired) intact Attention (Intact-Impaired) intact Behavior (Appropriate-Inappropriate) appropriate with this INDUSTRIAL SAFETY AND HEALTH MANAGER Suicidal Ideation (Plan) No Homicidal Ideation (Plan) No Comment pt exhibited aggitation/ aggression when first ex- tubated while confused. once reoriented to place/ circumstance and confusion wanned, pt was behaviorally appropriate with staff. Intervention offered BH/TANI/MH OP and INPT resources, denied at this time . Motivational Interviewing stage of change=preparation. RA Plan pending Medical POC
--- NOTE | 2024-06-28 19:14 | PM.PN.1 ---
Subjective Subjective Interval history: 29 year old male who was admitted with a toxic encephalopathy and intubated for multiple days. Course complicated by MSSA pneumonia and now alcohol withdrawal. He was extubated yesterday. He was more alert this morning, becoming more confused during the evening time. Family at bedside. He was started on librium today, able to wean off of precedex but now confused this afternoon. Will leave in the ICU in case of need to restart precedex. Blood culture with staph epidermidis and capitis, suspect contaminants. Exam Vital Signs (past 8 hours): - 06/28/24 11:15 06/28/24 11:30 06/28/24 11:45 Temperature Pulse Rate 100 H 102 H 102 H Respiratory Rate 29 H 21 30 H Blood Pressure Pulse Oximetry 98 97 98 Oxygen Delivery Method 06/28/24 12:00 06/28/24 12:00 06/28/24 12:00 Temperature 99.4 F Pulse Rate 98 H Respiratory Rate 27 H Blood Pressure 144/95 H Pulse Oximetry 98 Oxygen Delivery Method 06/28/24 12:00 06/28/24 12:15 06/28/24 12:30 Temperature Pulse Rate 100 H 95 H Respiratory Rate 39 H 23 Blood Pressure Pulse Oximetry 99 98 Oxygen Delivery Method Room Air 06/28/24 12:33 06/28/24 12:33 06/28/24 12:45 Temperature Pulse Rate 96 H 99 H Respiratory Rate 21 31 H Blood Pressure 138/91 H Pulse Oximetry 97 97 Oxygen Delivery Method 06/28/24 13:00 06/28/24 13:15 06/28/24 13:30 Temperature Pulse Rate 98 H 98 H 94 H Respiratory Rate 21 18 16 Blood Pressure Pulse Oximetry 97 96 Oxygen Delivery Method 06/28/24 13:45 06/28/24 14:00 06/28/24 14:00 Temperature Pulse Rate 98 H 96 H Respiratory Rate 24 21 Blood Pressure 132/74 Pulse Oximetry 99 99 Oxygen Delivery Method 06/28/24 14:15 06/28/24 14:30 06/28/24 14:45 Temperature Pulse Rate 99 H 97 H 95 H Respiratory Rate 30 H 26 H 35 H Blood Pressure Pulse Oximetry 99 99 97 Oxygen Delivery Method 06/28/24 15:00 06/28/24 15:15 06/28/24 15:30 Temperature Pulse Rate 94 H 93 H 94 H Respiratory Rate 17 27 H 31 H Blood Pressure Pulse Oximetry 98 99 99 Oxygen Delivery Method 06/28/24 15:37 06/28/24 15:39 06/28/24 15:39 Temperature 99.5 F Pulse Rate 98 H Respiratory Rate 28 H Blood Pressure 161/100 H Pulse Oximetry 99 Oxygen Delivery Method 06/28/24 15:41 06/28/24 15:41 06/28/24 15:45 Temperature Pulse Rate 97 H 94 H Respiratory Rate 27 H 29 H Blood Pressure 140/87 Pulse Oximetry 99 99 Oxygen Delivery Method 06/28/24 16:00 06/28/24 16:00 06/28/24 16:00 Temperature Pulse Rate 93 H Respiratory Rate 23 Blood Pressure 145/94 H Pulse Oximetry 98 Oxygen Delivery Method Room Air 06/28/24 16:15 06/28/24 16:30 06/28/24 16:45 Temperature Pulse Rate 96 H 93 H 94 H Respiratory Rate 28 H 23 24 Blood Pressure Pulse Oximetry 98 98 99 Oxygen Delivery Method 06/28/24 17:00 06/28/24 17:08 06/28/24 17:08 Temperature Pulse Rate 94 H 96 H Respiratory Rate 22 23 Blood Pressure 144/88 H Pulse Oximetry 99 98 Oxygen Delivery Method 06/28/24 17:15 06/28/24 17:56 06/28/24 18:00 Temperature Pulse Rate 92 H 97 H 97 H Respiratory Rate 21 26 H 21 Blood Pressure 145/91 H Pulse Oximetry 99 98 99 Oxygen Delivery Method 06/28/24 18:00 Temperature Pulse Rate Respiratory Rate Blood Pressure 149/94 H Pulse Oximetry Oxygen Delivery Method Fraction of Inspired Oxygen 28 Oxygen Delivery Method Room Air Oxygen Flow Rate 0 Narrative Exam Narrative: Gen: alert, oriented to name and location, confused, slightly lethargic CV: RRR no m/r/g Pulm: CTA B/l Abd: S NT ND Ext: no edema Neuro: no tongue fasciculations or tremulousness, but confused Objective Labs 06/28/24 04:30 06/28/24 04:30 Labs: Laboratory Results - last 24 hr 06/28/24 04:30 WBC 14.8 H RBC 4.44 L Hgb 14.3 Hct 41.2 MCV 92.8 MCH 32.2 MCHC 34.7 RDW 14.5 Plt Count 358 Sodium 138 Potassium 2.8 L Chloride 106 Carbon Dioxide 22 BUN 6 L Creatinine 0.57 L Estimated GFR > 60 BUN/Creatinine Ratio 10.5 Glucose 113 H Calcium 8.7 Magnesium 1.5 L Total Bilirubin 0.5 AST 27 ALT 23 Alkaline Phosphatase 92 Total Protein 6.9 Albumin 3.4 L Globulin 3.5 Albumin/Globulin Ratio 1.0 PFSH Medical History Seizure Anxiety Social History Smoking Status: Former smoker alcohol intake: current Assessment & Plan Assessment & Plan narrative: 1. Toxic encephalopathy, subsequent alcohol withdrawal. 2. Likely contaminant blood culture 3. MSSA pneumonia, new and active. Sputum culture reveals Staph aureus with sensitivity to follow. 4. History of seizure disorder, present on admission and stable. 5. Polysubstance overdose, present on admission and improved. 6. Hypernatremia, present on admission and improved. 7. New severe alcohol withdrawal, new and active. 8. Hypokalemia and hypomagnesemia PLAN: -DVT and GI prophylaxis. -continue librium 25 mg TID, may need to increase. Precedex off this afternoon, may need overnight so keep in ICU given continued confusion this evening. He drinks from 1 to 3 bottles of liquor a day he stated today. He was a bit confused so accurate EtOH intake is not known at this time. Mother states his drinking to excess is new. -[facility] protocol. -replete Mg and K today -continue cefazolin for MSSA pneumonia, can transition to PO when a bit less confused -consider ROUGHER OPERATOR evaluation depending on his swallow after extubation yesterday. -if no further precedex start PT tomorrow -continue home propranolol. 40 minutes of critical care time spent. This included bedside care, review of all data and meeting with family. Code: Full, surrogate is not known at this time. DVT: Lovenox daily Time-Based Coding :: [TOTAL MINUTES] spent with patient and on the chart (including review of chart, obtaining history, exam, reviewing outside data, placing orders, documenting exam and treatment plan, and counseling patient) on [DATE]. Quality VTE Deep Vein Thrombosis/Pulmonary Embolism Present on Admission: No
--- NOTE | 2024-06-28 20:31 | PM.ICURNDS ---
- Date Patient Seen: 06/28/24 Time Patient Seen: 20:32 :: This patient was seen via real time interactive two-way audiovisual telecommunication. Note: patient seen on evening rounds patient with no new complaints off precedex. would continue current management please call eICU if cognition changes
[2024-06-28] MEDS: clonazePAM 0.5 MG TABLET 2 MG PO (21:00)
[2024-06-29] VITALS (35 sets, daily range): BP systolic 139–159; BP diastolic 71–92; PULSE 95–129; RESP 13–33; TEMP 37–37.6; O2SAT 88–100
[2024-06-29] MEDS: CEFAZOLIN 2 GM/100 ML PREMIX 100 ML IV ×3 (03:19→20:01)
[2024-06-29] MEDS: LORazepam 2 MG/ML INJ 1 MG IV ×5 (03:22→20:29)
[2024-06-29] MEDS: LORazepam 2 MG/ML INJ IV ×2 (05:16→15:25)
[2024-06-29 05:45] LABS: Hematocrit 39.1 % (41-53); Hemoglobin 13.6 g/dL (13.5-17.5); Mean Corpuscular HGB Conc 34.8 % (30-36); Mean Corpuscular Volume 92.1 fL (80-100); Platelet Count 378 X10^3/uL (150-400); Red Blood Cell Count 4.25 X10^6/uL (4.5-5.9); Red Cell Distribution Width 14.3 % (11.6-14.8); White Blood Cell Count 15.9 X10^3/uL (4.5-11.0)
[2024-06-29 05:54] LABS: Alanine Aminotransferase 20 IU/L (<50); Albumin 3.5 g/dL (3.5-5.0); Alkaline Phosphatase 82 U/L (38-126); Aspartate Aminotransferase 29 IU/L (17-59); BUN Creatinine Ratio 11.1 (6-22); Bilirubin Total 0.7 mg/dL (0.2-1.3); Blood Urea Nitrogen 6 mg/dL (9-20); Calcium 8.5 mg/dL (8.4-10.2); Carbon Dioxide 22 mmol/L (22-32); Chloride 105 mmol/L (98-107); Estimated Glomerular Filt Rate > 60 mL/min (>60); Globulin 3.4 g/dL (1.7-4.1); Glucose 96 mg/dL (70-100); HEMOLYSIS 24 (0-50); Potassium 3.3 mmol/L (3.4-5.1); Sodium 138 mmol/L (137-145); Total Protein 6.9 g/dL (6.3-8.2)
[2024-06-29 08:14] LABS: Magnesium 1.9 mg/dL (1.6-2.3)
[2024-06-29] MEDS: ENOXAPARIN 40 MG/0.4 ML SYRINGE SUBCUT (09:10)
[2024-06-29] MEDS: PANTOPRAZOLE 40 MG VIAL IV (09:11)
[2024-06-29] MEDS: chlordiazePOXIDE 25 MG CAPSULE PO ×2 (09:18→10:11)
[2024-06-29] MEDS: POTASSIUM CHLORIDE 20 MEQ TAB 40 MEQ PO (10:12)
[2024-06-29] MEDS: THIAMINE 100 MG TABLET PO (10:13)
[2024-06-29] MEDS: SODIUM CHLORIDE 0.9% FLUSH 10 ML IV ×2 (11:01→22:33)
--- NOTE | 2024-06-29 12:34 | ST.IPIE ---
Visit Care Team Role Provider Type Neli Rogers, [facility] Primary Care Provider Advanced Chef Teacher Specialty: Family Practice Address: [facility] [place] [address], [address] Phone: Fax: Email: [email or web address] Sharon Landry MD Other Providers Physician Specialty: Medical Address: Phone: Fax: Email: Celestina Cartagena MD Other Providers Physician Specialty: Medical Address: Phone: Fax: Email: PARTHA Adhikari Other Providers Registered Nurse Specialty: Nursing Address: Phone: Fax: Email: Marina Stafford MD Other Providers Physician Specialty: Anesthesiology Address: Phone: Fax: Email: PARTHA Hector Other Providers Registered Nurse Specialty: Nursing Address: [address], [place], [address] Fax: Email: Snehal Singer LPN Other Providers Licensed Practical Nurse Specialty: Nursing Address: [address], [place], [address] Phone: Fax: Email: Manny Del Rosario MD Other Providers Physician Specialty: Medical Address: [address] [place], [address] Phone: Fax: Email: PARTHA Angel Other Providers Registered Nurse Specialty: Nursing Address: [address] [place] [address], [address] Fax: Email: Jim Denson DO Other Providers Physician Specialty: Internal Medicine Address: [address] [place] [address], [address] Phone: Fax: Email: Freddie Gonsales MD Other Providers Physician Specialty: Internal Medicine Address: Phone: Fax: Email: PARTHA Hayes Other Providers Registered Nurse Specialty: Nursing Address: [address], [place], [address] Fax: Email: Warren Pascual MD Other Providers Physician Specialty: Medical Address: Phone: Fax: Email: Rigo Garcias MD Other Providers Physician Specialty: Internal Medicine Address: [address] [place] [address], [address] Fax: Email: Fatemeh Patino DO Other Providers Physician Specialty: Internal Medicine Address: [address] , [place], [address] Phone: Fax: Email: Stephani Abad MD Other Providers Physician Specialty: Anesthesiology Internal Medicine Address: [address] [place], [address] Fax: Email: [email or web address] PARTHA Hamilton Other Providers Advanced Chef Teacher Specialty: Nursing Address: [address], [place], [address] Fax: Email: Eri Taveras MD Other Providers Physician Specialty: Internal Medicine Address: [address] [place], [address] Phone: Fax: Email: [email or web address] Kevin Diop MD Other Providers Physician Specialty: Internal Medicine Address: Phone: Fax: Email: Rodney Cote MD Other Providers Physician Specialty: Pulmonology Address: [address] [place], [address] Phone: Fax: Email: [email or web address] Other Providers Physician Specialty: Anesthesiology Address: [address], [place], [address] Fax: Email: David Long MD Other Providers Physician Specialty: Medical Address: Phone: Fax: Email: Celso Nieves MD Other Providers Physician Specialty: Internal Medicine Address: [facility] [place], [address] Phone: Fax: Email: Rufino Oreilly MD Other Providers Physician Specialty: Medical Address: [address] [place] [address], [address] Phone: Fax: Email: Elian Jimenez MD Other Providers Physician Specialty: Medical Address: Phone: Fax: Email: PARTHA Argueta Other Providers Advanced Chef Teacher Specialty: Nursing Address: [address] [place], [address] Phone: Fax: Email: Laura Ha Other Providers Physician Specialty: Medical Address: Phone: Fax: Email: PARTHA Irving Other Providers Advanced Chef Teacher Specialty: Nursing Address: [address], [place], [address] Fax: Email: Ml Worthington MD Other Providers Physician Specialty: Internal Medicine Address: Phone: Fax: Email: Ambrocio Stephenson MD Other Providers Physician Specialty: Internal Medicine Address: [address], [place], [address] Fax: Email: Colin Amaral MD Other Providers Physician Specialty: Hospitalist Address: [address] [place] [address], [facility] Phone: Fax: Email: Samuel Louise MD Other Providers Physician Specialty: Anesthesiology Address: Phone: Fax: Email: PARTHA Frias Other Providers Registered Nurse Specialty: Nursing Address: [address] [place] [address] Phone: Fax: Email: Warren Bee DO Emergency Provider Physician Referring Provider Specialty: Emergency Medicine Address: [address] [place] [address] Email: [email or web address] Carl Paul DO Admit Provider Physician Attending Provider Specialty: Internal Medicine Address: [address] [place] [address] Email: [email or web address] Current Diagnoses Delirium due to known physiological condition (06/23/24) Other psychoactive substance use, unspecified with withdrawal, unspecified (06/23/24) Acute respiratory failure, unspecified whether with hypoxia or hypercapnia (06/23/24) Poisoning by unspecified drugs, medicaments and biological substances, accidental (unintentional), initial encounter (06/23/24) Past Medical History (Last Reviewed 06/25/24 @ 08:07 by Rufus Carmona MD) Anxiety (Medical) Seizure (Medical) ST IP Initial Evaluation Report 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 Paul Reason for Referral Swallowing pain/difficulties Setting Assessment Location Acute Care Patient Information Identification Type Name,Wristband History Per H&P: 29-year-old male reported history of seizure disorder and myocardial infarction who was at a libertarian on and had foaming at the mouth and seizure like activity. On arrival his pupils were dilated and he was diaphoretic . He received 4 mg total of ativan with some slight relaxation but not much improvement, He was intubated in the emergency room for airway protection. UDS was positive for tricyclics, amphetamine and methamphetamine, MDMA, benzos, and cocaine. EtOH level was 224. Pt referred for ST evaluation d/t Pt reporting swallowing difficulties s/p extubation. Subjective Observations Pt sitting upright in chair in room with mom and other friend/family present. He reports since being extubated he has trouble swallowing, and also has been coughing a lot and throwing up. He reports it is hard for him to keep anything down. Reported by Patient/Caregiver Pain/Discomfort Yes Location Neck Other Symptoms Difficulty swallowing solids Current Diet Regular (IDDSI 7) Baseline Feeding Method Independent in self-feeding The IDDSI Framework Protocol: IDDSI.1 Objective Assessment Mental Status Alert,Responsive,Cooperative Comment Oral musculature appeared WFL Food and Liquid Trials Position During Assessment Upright (90 degrees) Liquids Trialed Thin (IDDSI 0) Solid Trials Regular (IDDSI 7) Oral Impairment Within functional limits Oral Phase Comments Pt compliant with only consuming jey crackers and his eletrolyte drink d/t him stating everything else has been making his throw up. For jey crackers, Pt took small bites, adequate mastication time, timely ap transport. For liquids Pt exhibited adequate sip size and rate, good oral acceptance and containment. Pharyngeal Impairment Mildly impaired Pharyngeal Phase Comments Pt reported the jey cracker went down without difficulties with minimal pain . He exhibited no overt s/s of aspiration with all PO trials , such as coughing or choking. ST suspects pain when swallowing d/t swelling from intubation. Pt reports dry foods are hard to swallow. Fatigue/Endurance Endurance WNL The IDDSI Framework Protocol: IDDSI.1 Findings Swallowing Function Pharyngeal phase dysphagia Severity of Swallow Impairment Mildly impaired Prognosis Good Based on Cognitive status,Family support,Age Impact on Safety and Functioning No limitations Recommendations Instrumental Assessment No Swallowing Treatment No Recommended Solids Soft & Bite-sized (IDDSI 6) Recommended Liquids Thin (IDDSI 0) Other Recommendations ST recommends IDDSI 6 (extra sauce/gravy) with IDDSI 0 and the below mentioned safe swallowing strategies in place . Jey crackers and saltines okay. ST recommends diet upgrade if Pt is not reporting any more throat pain or for re-referral if his swallowing difficulties persist. ST educated Pt and his family on reason for modified diet and safe swallowing strategies. Safety Precautions/Swallowing Remain upright (90 degrees) Recommendations during all oral intake,Upright position at least 30 minutes after meals,Small bites and sips when eating,Slow rate; swallow between bites, Alternate liquids and solids Medication Recommendations As Tolerated Education Patient/Caregiver Education Described results of evaluation,Patient expressed understanding of evaluation, Family/caregivers expressed understanding of evaluation
--- NOTE | 2024-06-29 14:48 | CM.DPNOTE ---
DCP Note ALCOHOL AND DRUG COUNSELOR reviewed EMR CIWA of 10 early this morning, 5 in the afternoon. Per RN report, mentation much clearer today. PT eval pending. Per provider in morning rounds, pt improving today. ALIDA remains unknown. ALCOHOL AND DRUG COUNSELOR entered room, mom and dad at bedside but this ALCOHOL AND DRUG COUNSELOR met with pt individually per pt request. Pt sitting up in chair. reports feeling less nauseated today. ALCOHOL AND DRUG COUNSELOR and pt had lengthy discussion in regards to pt's plan for his future of sobriety moving forward. Speech much less slurred today, pt more logical in thought patterns, less likely to ruminate on irrelevant topics. Pt reports his heavy drinking started two years ago after something really bad happened to his friend. pt continues to deny methamphetamine, MDMA, or amphetamine use intentionally. tried' cocaine once or twice, it was a stupid thing. Believe the cocaine was laced with tranq (Aka Xylazine) and that's how he tested positive for the rest of the drugs on his tox screen. 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 Pt spoke in length about his training and how he's going to work on his physical and mental health over the next few months to further his career. Pt plans to move in with his gf at al and that she will help him on his sobriety journey. Pt continues to deny OP/INPT TANI resources from this ALCOHOL AND DRUG COUNSELOR at this time. P: anticipate home with family and friend support when medically stable. ALCOHOL AND DRUG COUNSELOR team will continue to offer TANI/MH resources and continue to follow for PT recs. CM team will continue to follow in case DCP needs arise. ANTONY Stark
[2024-06-29] MEDS: chlordiazePOXIDE 25 MG CAPSULE 50 MG PO ×2 (15:25→22:31)
--- NOTE | 2024-06-29 15:35 | PT.IIE ---
Current Diagnoses Delirium due to known physiological condition (06/23/24) Other psychoactive substance use, unspecified with withdrawal, unspecified (06/23/24) Acute respiratory failure, unspecified whether with hypoxia or hypercapnia (06/23/24) Poisoning by unspecified drugs, medicaments and biological substances, accidental (unintentional), initial encounter (06/23/24) Medical History (Last Reviewed 06/25/24 @ 08:07 by Rufus Carmona MD) Anxiety Seizure Physical Therapy Inpatient Evaluation/Re-Eval M1 PT/OT-IP Prior Functional Status Start: 06/29/24 16:56 Freq: NEEDED Status: Active Protocol: Document 06/29/24 15:35 AB (Rec: 06/29/24 17:12 AB [id number]) Medical Review Prior Functional Status Medical History Reviewed Yes Communication able to answer questions; slow to respond and easily distracted Mobility and Gait family in room and tends to answer for pt: stated that pt was independent with all mobilities and ambulation without AD Social History Household Members none Living Arrangements House Number of Floors (Floors) Two Floors Number of Stairs To Enter/Railing? pt lives alone but plans to go to his GF's house upon dc: info provided is regarding GF' s home set up 1 step to enter the house; 8 steps B rails to get to 2nd level bedroom Home Environment Standard Height Toilet,Walk in Shower,Tub/Shower Home Equipment Hand Held Shower,Grab Bars In Shower Additional Social History Comment pt's family stated that pt's GF works from home and can assist pt M2 PT-IP Current Condition Start: 06/29/24 16:56 Freq: NEEDED Status: Active Protocol: Document 06/29/24 15:35 AB (Rec: 06/29/24 17:12 AB [id number]) Physical Therapy Current Condition Current Condition Evaluation Date 06/29/24 Treatment Diagnosis seizure;polysubstance overdose ; toxic encephalopathy; difficulty in walking Onset Date 06/23/24 M3 PT-IP Subjective Start: 06/29/24 16:56 Freq: NEEDED Status: Active Protocol: Document 06/29/24 15:35 AB (Rec: 06/29/24 17:12 AB [id number]) Subjective Physical Therapy Visit Type Type Initial Evaluation Visit Start Time 15:35 Visit Stop Time 16:20 Number of ASSOCIATE MERCHANDISE PLANNER Visits 0 Physical Therapy Visit Comments Patient Comments agreeable to do PT Therapy Pain Assessment Pain Present Pain Present Denied Pain M4 PT-IP Mobility and Gait Start: 06/29/24 16:56 Freq: NEEDED Status: Active Protocol: Document 06/29/24 15:35 AB (Rec: 06/29/24 17:12 AB [id number]) PT-Bed Mobility Assessment Supine to Sit Supine to Sit Standby Assistance Sit to Supine Sit to Supine Standby Assistance PT-Transfer Assessment Sit to and From Stand Sit to and from Stand Moderate Assistance,1 Person Assistance,Use of Upper Extremities Equipment Transfer Assistive Device Gait Belt,Front Wheeled Walker Orthotic/Prosthetic Devices or Brace: No Transfers Transfer Destination Bed,Chair Transfer Technique ambulated Transfer Ability Level of Assist Moderate Assistance,1 Person Assistance,Use of Upper Extremities Comments Mobility Comments pt sitting on the chair. pt's mother/father in room with pt . obtained PLOF and home setup. pt's family tends to answer for pt. BP sittin/89 O2 sat 95% and OR 110. completed sit to stand mod A . presents with increase posterior leaning with initial standing requiring mod A for balance/steadiness and max cues for techniques and safety . pt ambulated in room using FWW mod A ~ 8 ft. max cues provided. pt sat on the EOB and completed sit<>supine SBA. pt can be impulsive. completed sit to stand from EOB mod A and ambulated to chair using FWW mod A ~ 5 ft. positioned pt on the chair. call light and table placed within reach. pt requires max cues with all tasks and needs time to follow directions and complete tasks . Gait Assessment Gait Gait Assistance Required: Moderate Assistance Distance (Feet) 8 Able to Maintain Weight Bearing Status Yes During Gait Assistive Devices Assistive Device Gait Belt,Front Wheeled Walker Orthotic/Prosthetic Devices or Brace: No Gait Deviations General Gait Pattern Ataxic,Decreased Stride Length ,Decreased Feet Clearance,Step -to Gait Factors Limiting Gait Function Factors Limiting Gait Function Decreased Activity Tolerance, Decreased Strength,Difficulty Following Directions, Incoordination,Limited Range of Motion,Pain,Poor Balance, Poor Safety Awareness PT-Balance Assessment Sitting Balance and Reactions Static Sitting Balance Ability Normal Dynamic Sitting Balance Ability Good Standing Balance and Reactions Static Standing Balance Ability Fair Dynamic Standing Balance Ability Poor Device Used FWW M5 PT-IP Objective Assessments Start: 06/29/24 16:56 Freq: NEEDED Status: Active Protocol: Document 06/29/24 15:35 AB (Rec: 06/29/24 17:12 AB [id number]) Orientation Orientation/Cognition Level of Alertness Alert Orientation Name,Place,Situation Safety Awareness Decreased Safety Awareness Memory Description Short Term Impaired Gross Range of Motion Lower Extremity ROM Assessment Within Functional Limits Strength Lower Extremity Strength Assessment Within Functional Limits Muscle Tone Muscle Tone WNL Yes M6 PT-IP Treatment Start: 06/29/24 16:56 Freq: NEEDED Status: Active Protocol: Document 06/29/24 15:35 AB (Rec: 06/29/24 17:12 AB [id number]) Physical Therapy Treatment Education Education Provided Safety M7 PT-IP Assessment and Plan Start: 06/29/24 16:56 Freq: NEEDED Status: Active Protocol: Document 06/29/24 15:35 AB (Rec: 06/29/24 17:12 AB [id number]) PT Summary Assessment and Plan Potential Rehabilitation Potential Fair Status of Condition at Evaluation Evolving Summary Impairments ROM,Strength,Balance, Coordination,Sensation,Tone, Cognition,Bed Mobility, Transfers,Gait,Activity Tolerance Assessment Summary pt is a 29 y/o M who is admitted for polysubstance overdose, toxic encephalopathy and seizure. pt requiring mod A for transfers and ambulation using FWW and max cues for all tasks. pt with decrease safety awareness affecting mobility independence. pt will need 24/ 7 assist and will benefit from SNF rehab. will continue to assess progress. Goals Bed Mobility Goal Independent Transfer Goal Independent,Front Wheeled Walker Gait Goal Independent,Front Wheel Walker Gait Distance 200 Other Goals improv transfers and ambulation using LRAD/without AD 300 ft SBA up/down 1 steps to enter without rails SBA up/down 8 steps B rails SBA Days to Meet Goals 10 Frequency of Treatment Frequency Of Treatment Once a Day Treatment Plan Physical Therapy Treatment Plan Bed Mobility Training,Transfer Training,Gait Training, Therapeutic Exercise,Balance Retraining,Discharge Planning, Hot or Cold Pack,Neuromuscular Re-ed,Coordination Retraining Precautions Other Precautions falls; seizure Recommendations To Nursing Amount of Assist Needed 1 Person Assist Discharge Recommendations PT Discharge Recommendations Home with 24/7 Assist Available,Home Health,SNF Rehab,Home vs SNF Equipment Needed for Home Before FWW Discharge Transportation Needs at Discharge Private Vehicle,Wheelchair/ Cabulance
--- NOTE | 2024-06-29 16:29 | PM.PN.1 ---
Subjective Subjective Interval history: 29 year old male who was admitted with a toxic encephalopathy and intubated for multiple days. Course complicated by MSSA pneumonia and now alcohol withdrawal. He was extubated 06/27. He is more alert this morning, less confused. He is tachycardic and needed increase in librium today but not restarted on precedex. Downgraded from the ICU. Some cough and sore throat still with meals. Exam Vital Signs (past 8 hours): - 06/29/24 08:59 06/29/24 08:59 06/29/24 09:00 Temperature Pulse Rate 104 H 112 H Respiratory Rate 26 H 20 Blood Pressure 141/86 H Pulse Oximetry 99 06/29/24 10:00 06/29/24 11:00 06/29/24 12:00 Temperature Pulse Rate 116 H 108 H 102 H Respiratory Rate 24 17 21 Blood Pressure Pulse Oximetry 98 06/29/24 12:00 06/29/24 13:00 06/29/24 14:00 Temperature 98.6 F Pulse Rate 123 H 121 H Respiratory Rate 19 20 Blood Pressure Pulse Oximetry 97 94 Fraction of Inspired Oxygen 28 Oxygen Delivery Method Room Air Oxygen Flow Rate 0 Narrative Exam Narrative: Gen: alert, oriented to name and location, confused, slightly lethargic CV: RRR no m/r/g Pulm: CTA B/l Abd: S NT ND Ext: no edema Neuro: + tongue fasciculations and tremulousness, but confused Objective Labs 06/29/24 05:30 06/29/24 05:30 Labs: Laboratory Results - last 24 hr 06/29/24 05:30 WBC 15.9 H RBC 4.25 L Hgb 13.6 Hct 39.1 L MCV 92.1 MCH 32.0 MCHC 34.8 RDW 14.3 Plt Count 378 Sodium 138 Potassium 3.3 L Chloride 105 Carbon Dioxide 22 BUN 6 L Creatinine 0.54 L Estimated GFR > 60 BUN/Creatinine Ratio 11.1 Glucose 96 Calcium 8.5 Magnesium 1.9 Total Bilirubin 0.7 AST 29 ALT 20 Alkaline Phosphatase 82 Total Protein 6.9 Albumin 3.5 Globulin 3.4 Albumin/Globulin Ratio 1.0 PFSH Medical History Seizure Anxiety Social History Smoking Status: Former smoker alcohol intake: current Assessment & Plan Assessment & Plan narrative: 1. Toxic encephalopathy, subsequent alcohol withdrawal. 2. Likely contaminant blood culture 3. MSSA pneumonia, new and active. Sputum culture reveals Staph aureus with sensitivity to follow. 4. History of seizure disorder, present on admission and stable. 5. Polysubstance overdose, present on admission and improved. 6. Hypernatremia, present on admission and improved. 7. New severe alcohol withdrawal, new and active. 8. Hypokalemia and hypomagnesemia PLAN: -DVT and GI prophylaxis. -increased to librium 50 mg TID. Precedex off for >24 hours, okay to downgrade out of ICU. He drinks from 1 to 5 bottles of liquor a day depending on whom has asked him. He was a bit confused so accurate EtOH intake is not known at this time. Mother states his drinking to excess is new. -[facility] protocol. -replete K today with K <3.5, Mg improved at 1.9. 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 -start PT for early ambulation. Code: Full, surrogate is not known at this time. DVT: Lovenox daily Time-Based Coding :: [TOTAL MINUTES] spent with patient and on the chart (including review of chart, obtaining history, exam, reviewing outside data, placing orders, documenting exam and treatment plan, and counseling patient) on [DATE]. Quality VTE Deep Vein Thrombosis/Pulmonary Embolism Present on Admission: No
[2024-06-29] MEDS: POTASSIUM CHLORIDE IN WATER 10 MEQ/100 ML PIGGYBACK 100 MEQ IV ×2 (17:22→18:24)
[2024-06-29] MEDS: clonazePAM 0.5 MG TABLET 2 MG PO (22:31)
[2024-06-29] MEDS: PROPRANOLOL 10 MG TABLET 60 MG PO (22:32)
[2024-06-30] VITALS (25 sets, daily range): BP systolic 124–149; BP diastolic 80–91; PULSE 94–118; RESP 14–29; TEMP 37–38.1; O2SAT 94–99; BMI 24.6
[2024-06-30] MEDS: LORazepam 2 MG/ML INJ 1 MG IV (00:41)
[2024-06-30] MEDS: CEFAZOLIN 2 GM/100 ML PREMIX 100 ML IV ×3 (03:22→18:13)
[2024-06-30 07:14] LABS: Hematocrit 38.6 % (41-53); Hemoglobin 13.5 g/dL (13.5-17.5); Mean Corpuscular HGB Conc 35.1 % (30-36); Mean Corpuscular Hemoglobin 32.3 PG (26-34); Mean Corpuscular Volume 92.2 fL (80-100); Platelet Count 417 X10^3/uL (150-400); Red Blood Cell Count 4.19 X10^6/uL (4.5-5.9); Red Cell Distribution Width 14.4 % (11.6-14.8); White Blood Cell Count 12.4 X10^3/uL (4.5-11.0)
[2024-06-30 07:27] LABS: Alanine Aminotransferase 20 IU/L (<50); Albumin 3.6 g/dL (3.5-5.0); Albumin Globulin Ratio 1.1 (1.0-2.8); Alkaline Phosphatase 71 U/L (38-126); Aspartate Aminotransferase 32 IU/L (17-59); BUN Creatinine Ratio 11.8 (6-22); Bilirubin Total 0.5 mg/dL (0.2-1.3); Blood Urea Nitrogen 6 mg/dL (9-20); Calcium 8.9 mg/dL (8.4-10.2); Carbon Dioxide 26 mmol/L (22-32); Chloride 102 mmol/L (98-107); Estimated Glomerular Filt Rate > 60 mL/min (>60); Globulin 3.3 g/dL (1.7-4.1); Glucose 90 mg/dL (70-100); HEMOLYSIS < 15 (0-50); Potassium 3.1 mmol/L (3.4-5.1); Sodium 138 mmol/L (137-145); Total Protein 6.9 g/dL (6.3-8.2)
[2024-06-30] MEDS: PROPRANOLOL 10 MG TABLET 60 MG PO ×2 (09:06→21:49)
[2024-06-30] MEDS: THIAMINE 100 MG TABLET PO (09:07)
[2024-06-30] MEDS: MULTIVITAMIN 1 TABLET 1 TAB PO (09:07)
[2024-06-30] MEDS: FOLIC ACID 1 MG TABLET PO (09:07)
[2024-06-30] MEDS: chlordiazePOXIDE 25 MG CAPSULE 50 MG PO ×3 (09:07→21:50)
[2024-06-30] MEDS: ENOXAPARIN 40 MG/0.4 ML SYRINGE SUBCUT (09:07)
[2024-06-30] MEDS: clonazePAM 0.5 MG TABLET 2 MG PO ×2 (09:07→21:50)
[2024-06-30] MEDS: SODIUM CHLORIDE 0.9% FLUSH 10 ML IV ×2 (09:08→21:51)
[2024-06-30] MEDS: PANTOPRAZOLE 40 MG VIAL IV (09:08)
--- NOTE | 2024-06-30 11:13 | DIET.CONS ---
Dietary Consultation Note Admission Date: 06/23/2024 07:57 Assessment: RD f/u Met with pt and family at bedside. They report diet adjustment from ST has been going well, no coughing/nausea, ate breakfast. Report that prior to hospitalization pt was getting Factor meals and having 2-3 per day with 600-700 kcals in each meal+doing a protein jelly of 15 g protein. Pt notes he has lost weight progressively over a year+. >1 year ago weight was 225 lb (102 kg) Nutrition focused physical exam performed, mild loss in temporalis muscle. No other significant findings. Assessed: temples, buccal and orbital fat pads, clavicle region, interosseous. Ht: 177.8 cm Wt: 78 kg BMI: 23.6 UBW: 102 kg >1 yr ago per pt, per EMR 79.5 kg on 11/19/23, 100 kg on 08/20/22 Last BM: 06/29/24 (06/29/24 21:00) MNA: 14 Armani Score: 19 Diet: 06/29/24 Dinner Courtesy Tray (Peds, comfort care) Diet Modifications: Dysphagia Diet Diet Modifications: Extra sauce and gravy Food Texture: Level 6-Soft & Bite-sized Liquid Consistency: Level 0 - Thin Labs: RBC 4.19 X10^6/uL (4.5-5.9) L 06/30/24 07:00 Hgb 13.5 g/dL (13.5-17.5) 06/30/24 07:00 Hct 38.6 % (41-53) L 06/30/24 07:00 Creatinine 0.51 mg/dL (0.66-1.25) L 06/30/24 07:00 Lactate 1.4 mmol/L (0.7-2.1) 06/23/24 06:55 Nutrition Diagnosis: Excessive ETOH intake r/t alcohol misuse aeb intake of 3 fifth liquor per day for past 2 months-2 yrs Interventions: Pt and family report pt consuming meals, DFM reviewed for meal composition, encouraged continued intakes as tolerated. EER: (re-adjusted d/t updated weights) [id number] kcals (25-30 kcals/kg per BMI) 80 g protein (1g/kg) Monitoring/Evaluations: po intakes, diet tolerance Electronically Signed by: Siobhan Jones 06/30/24 11:13 Clinical Dietitian [address] [address]
[2024-06-30] MEDS: POTASSIUM CHLORIDE 20 MEQ TAB 40 MEQ PO ×2 (11:38→15:46)
--- NOTE | 2024-06-30 12:52 | CM.SWNOTE ---
DCP Cont Call received from patient's grandma, Azam Abdalla. Azam expressed her concern about patient and his neurological state, asking if a neurology or psychiatry visit is available and/or if it would be helpful? Will defer to Dr Humberto ferrer clinical decisions. Provider updated. Azam would like patient to discharge to an T[facility] treatment facility; Azam aware that patient is declining this option currently. Supported Azam as she reviewed the difficulty of this impossible situation and how desperately patient's family want to see patient sober and healthy. Patient is a decisional adult; reviewed voluntary treatment vs involuntary detainment, discussed [place]'s Law. Explained that as of today, patient would not meet criteria to be detained against his will to TANI treatment. This IRRIGATION ENGINEER agrees to discuss treatment options (again) with patient at bedside today. Azam states understanding and appreciative for the conversation. See IRRIGATION ENGINEER Note-TANI assessment. JW
--- NOTE | 2024-06-30 13:01 | CM.SWNOTE ---
CNC MANAGER Note-TANI Assessment Met w/patient alone at bedside, introduced self and role. Patient asked for friend Matthew to be in the room towards the end of our conversation. Patient alert and oriented, denies current hallucination, calm mood, flat affect and slow processing noted. Patient is forthcoming with information. Good eye contact. Psychosocial: Patient confirms he lives independently, alone in [place] and plans to move in with his girlfriend Yen. Patient works and denies any trouble accessing basic needs. Patient lists his friends and GF as his main supports. Current Use: Patient reports drinking up to 3 fifths of hard alcohol nightly when he is with his drinking friends. Patient denies illicit drug use. Patient reports drinking alcohol for many years, states he used cocaine as a teenager but never felt addicted. Patient's drinking significantly increased approx one year ago when an on again off again girlfriend, dx with schizophrenia, came back into his life and he sent her away due to the severity of her mental illness, which patient found very difficult. Hx Treatment: Patient has never been to treatment and has never had a counselor. MH: Patient denies hx of or current suicidal ideation. Patient presents as apprehensive to accept help from a counselor, psychiatrist and does not trust medication. Did not assess mental health further. Intervention: Had lengthy conversation w/patient. Patient is remorseful today, reports feeling embarrassed above all about his behavior on . With friend Matthew at bedside, patient commits to sobriety and states he can drag me to inpatient treatment if I drink. Discussed the merit of counseling and provided information about [facility]. Provided inpatient TANI treatment options to patient and his friend Matthew. Discussed voluntary vs involuntary treatment. Discussed the risk of by suicide for patient, statistically speaking, when drinking.. and friend Matthew agreed to get all weapons out of patient's home. Patient and friend Matthew state appreciation. Patient okay with communication with xiomara Nascimento as needed. Updated RN. Plan: Discharge home anticipated, w/friends and GF to support, inpatient [facility] and counseling resources provided. ANTONY eNvarez
--- NOTE | 2024-06-30 14:25 | PT.IPTN ---
Current Diagnoses Delirium due to known physiological condition (06/23/24) Other psychoactive substance use, unspecified with withdrawal, unspecified (06/23/24) Acute respiratory failure, unspecified whether with hypoxia or hypercapnia (06/23/24) Poisoning by unspecified drugs, medicaments and biological substances, accidental (unintentional), initial encounter (06/23/24) Physical Therapy Treatment Note M2 PT-IP Current Condition Start: 06/29/24 16:56 Freq: NEEDED Status: Active Protocol: Document 06/29/24 15:35 AB (Rec: 06/29/24 17:12 AB [id number]) Physical Therapy Current Condition Current Condition Evaluation Date 06/29/24 Treatment Diagnosis seizure;polysubstance overdose ; toxic encephalopathy; difficulty in walking Onset Date 06/23/24 M3 PT-IP Subjective Start: 06/29/24 16:56 Freq: NEEDED Status: Active Protocol: Document 06/30/24 14:25 AB (Rec: 06/30/24 18:03 AB [id number]) Subjective Physical Therapy Visit Type Type Treatment Note Visit Start Time 14:25 Visit Stop Time 14:50 Number of LEAD CARE MANAGER Visits 0 Physical Therapy Visit Comments Patient Comments agreeable to do PT M4 PT-IP Mobility and Gait Start: 06/29/24 16:56 Freq: NEEDED Status: Active Protocol: Document 06/30/24 14:25 AB (Rec: 06/30/24 18:03 AB [id number]) PT-Bed Mobility Assessment Supine to Sit Supine to Sit Standby Assistance,Head of Bed Elevated,Bedrails PT-Transfer Assessment Sit to and From Stand Sit to and from Stand Contact Guard Assistance,1 Person Assistance,Use of Upper Extremities Equipment Transfer Assistive Device Gait Belt,Front Wheeled Walker Orthotic/Prosthetic Devices or Brace: No Transfers Transfer Destination Chair Transfer Technique Stand Step Pivot Transfer Ability Level of Assist Contact Guard Assistance,1 Person Assistance,Use of Upper Extremities Comments Mobility Comments pt supine in bed and agreeable to do PT. pt wants to ambulate. nurse informed PT regarding pt's concerns of his UE and doctor is aware. pt informed PT regarding UE swelling. family in room and tends to answer and speak for pt. hospitalist came in to check on pt. pt completed supine to sit SBA with HOB elevated. pt can be impulsive and requires constant cues for safety. pt able to sit on EOB SBA. sit to stand CGA and step transfer to chair using FWW CGA and max cues for safety. nurse came in to work on pt's IV on UE. pt completed sit to stand from the chair CGA and ambulated in the hallway using FWW ~ 500 ft CGA and cues for safety. presents with unsteady shuffling gait. pt needing standing rest breaks in between walking. pt ambulated back to his room and sat on the chair. positioned pt on the chair. call light and table placed within reach. Gait Assessment Gait Gait Assistance Required: Contact Guard Assist Distance (Feet) 500 Able to Maintain Weight Bearing Status Yes During Gait Assistive Devices Assistive Device Gait Belt,Front Wheeled Walker Orthotic/Prosthetic Devices or Brace: No Gait Deviations General Gait Pattern Ataxic,Decreased Stride Length ,Decreased Feet Clearance Factors Limiting Gait Function Factors Limiting Gait Function Decreased Strength,Poor Balance,Poor Safety Awareness M5 PT-IP Objective Assessments Start: 06/29/24 16:56 Freq: NEEDED Status: Active Protocol: Document 06/29/24 15:35 AB (Rec: 06/29/24 17:12 AB [id number]) Orientation Orientation/Cognition Level of Alertness Alert Orientation Name,Place,Situation Safety Awareness Decreased Safety Awareness Memory Description Short Term Impaired Gross Range of Motion Lower Extremity ROM Assessment Within Functional Limits Strength Lower Extremity Strength Assessment Within Functional Limits Muscle Tone Muscle Tone WNL Yes M6 PT-IP Treatment Start: 06/29/24 16:56 Freq: NEEDED Status: Active Protocol: Document 06/30/24 14:25 AB (Rec: 06/30/24 18:03 AB [id number]) Physical Therapy Treatment Education Education Provided Safety M7 PT-IP Assessment and Plan Start: 06/29/24 16:56 Freq: NEEDED Status: Active Protocol: Document 06/30/24 14:25 AB (Rec: 06/30/24 18:03 AB [id number]) PT Summary Assessment and Plan Potential Rehabilitation Potential Fair Summary Impairments Pain,ROM,Strength,Balance, Coordination,Sensation,Tone, Cognition,Bed Mobility, Transfers,Gait,Activity Tolerance Progress Towards Goals Slow Progress due to Medical Issues Assessment Summary pt improving with mobility and able to ambulate using fWW CGA ~500 ft. pt plans to go home and his GF will assist him at home. will continue to assess progress. Goals Bed Mobility Goal Independent Transfer Goal Independent,Front Wheeled Walker Gait Goal Independent,Front Wheel Walker Gait Distance 200 Other Goals improv transfers and ambulation using LRAD/without AD 300 ft SBA up/down 1 steps to enter without rails SBA up/down 8 steps B rails SBA Days to Meet Goals 10 Frequency of Treatment Frequency Of Treatment Once a Day Treatment Plan Physical Therapy Treatment Plan Bed Mobility Training,Transfer Training,Gait Training, Therapeutic Exercise,Balance Retraining,Discharge Planning, Hot or Cold Pack,Neuromuscular Re-ed,Coordination Retraining Precautions Other Precautions falls; seizure Recommendations To Nursing Amount of Assist Needed 1 Person Assist Discharge Recommendations PT Discharge Recommendations Home with 13/01 Assist Available,Home Health Equipment Needed for Home Before FWW Discharge Transportation Needs at Discharge Private Vehicle,Wheelchair/ Cabulance
--- NOTE | 2024-06-30 17:12 | PC.NURSE ---
Pt stable throughout shift. Not requiring PRNs per CIWA. Walked around unit and up to chair x1 SBA. R hand redness and warmth noted, physician notified. Family at bedside, updated throughout shift.
--- NOTE | 2024-06-30 17:36 | P.PN_ITS ---
Subjective Subjective Interval history: 29 year old male who was admitted with a toxic encephalopathy and intubated for multiple days. Course complicated by MSSA pneumonia and now alcohol withdrawal. He was extubated 06/27. He is doing much better this morning! He is ambulating with a walker today, improved confusion and minimal etoh withdrawal symptoms on 50 mg TID of librium. Later in the day developed R hand erythema and redness, removed IV. Still has L sided PICC. Exam Vital Signs (past 8 hours): - 06/30/24 10:00 06/30/24 11:00 06/30/24 12:00 Temperature Pulse Rate 108 H 94 H 96 H Blood Pressure Pulse Oximetry 99 99 98 06/30/24 13:00 06/30/24 14:00 06/30/24 14:51 Temperature Pulse Rate 99 H 98 H 96 H Blood Pressure Pulse Oximetry 99 99 97 06/30/24 14:51 06/30/24 14:57 Temperature 98.6 F Pulse Rate Blood Pressure 131/84 Pulse Oximetry Fraction of Inspired Oxygen 28 Oxygen Delivery Method Room Air Oxygen Flow Rate 0 Narrative Exam Narrative: Gen: alert, oriented to name and location, confused, slightly lethargic CV: RRR no m/r/g Pulm: CTA B/l Abd: S NT ND Ext: no edema Neuro: + tongue fasciculations and tremulousness, but confused Objective Labs 06/30/24 07:00 06/30/24 07:00 Labs: Laboratory Results - last 24 hr 06/30/24 07:00 WBC 12.4 H RBC 4.19 L Hgb 13.5 Hct 38.6 L MCV 92.2 MCH 32.3 MCHC 35.1 RDW 14.4 Plt Count 417 H Sodium 138 Potassium 3.1 L Chloride 102 Carbon Dioxide 26 BUN 6 L Creatinine 0.51 L Estimated GFR > 60 BUN/Creatinine Ratio 11.8 Glucose 90 Calcium 8.9 Total Bilirubin 0.5 AST 32 ALT 20 Alkaline Phosphatase 71 Total Protein 6.9 Albumin 3.6 Globulin 3.3 Albumin/Globulin Ratio 1.1 [facility] Medical History Seizure Anxiety Social History household members: none Smoking Status: Former smoker alcohol intake: current Assessment & Plan Assessment & Plan narrative: 1. Toxic encephalopathy, subsequent alcohol withdrawal. 2. Likely contaminant blood culture 3. MSSA pneumonia, new and active. Sputum culture reveals Staph aureus with sensitivity to follow. 4. History of seizure disorder, present on admission and stable. 5. Polysubstance overdose, present on admission and improved. 6. Hypernatremia, present on admission and improved. 7. New severe alcohol withdrawal, new and active. 8. Hypokalemia and hypomagnesemia PLAN: -DVT and GI prophylaxis. -increased to librium 50 mg TID now with good control. Will reduce to 25 mg TID starting tomorrow. He drinks from 1 to 5 bottles of liquor a day depending on whom has asked him. He was a bit confused so accurate EtOH intake is not known at this time. Mother states his drinking to excess is new. -[facility] protocol. -replete K today with K <3.5, Mg improved at 1.9. -continue cefazolin for MSSA pneumonia, can transition to PO tomorrow morning, will change to levofloxacin daily with penicillin allergy. -[facility] evaluation ordered for coughing with meals, now on dysphagia diet -continue PT Code: Full, surrogate is not known at this time. DVT: Lovenox daily Dispo: Likely home, timing likely in 1-3 more days depending on etoh withdrawal progress and taper response tomorrow and speech progress. Time-Based Coding :: [TOTAL MINUTES] spent with patient and on the chart (including review of chart, obtaining history, exam, reviewing outside data, placing orders, documenting exam and treatment plan, and counseling patient) on [DATE]. Quality VTE Deep Vein Thrombosis/Pulmonary Embolism Present on Admission: No
[2024-07-01] VITALS: BP 133/79; PULSE 93; RESP 19; TEMP 36.8; O2SAT 99
[2024-07-01] MEDS: CEFAZOLIN 2 GM/100 ML PREMIX 100 ML IV (03:29)
[2024-07-01] MEDS: levoFLOXacin 250 MG TABLET 750 MG PO (06:44)
[2024-07-01] MEDS: PANTOPRAZOLE DR 40 MG TABLET PO (06:44)
[2024-07-01 08:00] VITALS: BP 136/78; PULSE 92; RESP 19; TEMP 37.2; O2SAT 97
[2024-07-01] MEDS: MULTIVITAMIN 1 TABLET 1 TAB PO (08:44)
[2024-07-01] MEDS: clonazePAM 0.5 MG TABLET 2 MG PO (08:44)
[2024-07-01] MEDS: THIAMINE 100 MG TABLET PO (08:44)
[2024-07-01] MEDS: chlordiazePOXIDE 25 MG CAPSULE PO (08:44)
[2024-07-01] MEDS: FOLIC ACID 1 MG TABLET PO (08:45)
[2024-07-01] MEDS: PROPRANOLOL 10 MG TABLET 60 MG PO (08:46)
[2024-07-01] MEDS: SODIUM CHLORIDE 0.9% FLUSH 10 ML IV (08:47)
[2024-07-01] MEDS: ENOXAPARIN 40 MG/0.4 ML SYRINGE SUBCUT (09:00)
--- NOTE | 2024-07-01 10:41 | PM.DS.1 ---
History of Present Illness History of Present Illness Date Patient Seen: 07/01/24 Time Patient Seen: 10:41 Chief complaint: overdosing Narrative: 29-year-old male reported history of seizure disorder and myocardial infarction who was at a alliance party on and had foaming at the mouth and seizure like activity. On arrival his pupils were dilated and he was diaphoretic. He received 4 mg total of ativan with some slight relaxation but not much improvement, He was intubated in the emergency room for airway protection. UDS was positive for tricyclics, amphetamine and methamphetamine, MDMA, benzos, and cocaine. EtOH level was 224. He remains sedated on arrival to the ICU, no additional history is available. Labs show normal bilirubin, mild AST/ALT elevations. Hypernatremia with Na of 148. CK was 95, troponin normal. Discharge Providers Provider Date of admission: 06/23/24 07:57 Discharge Date: 07/01/24 Primary care physician: TATA Collins-BC Consults: 06/23/24 11:39 Consult to Dietitian, Adult Routine Comment: Reason For Exam: Patient on Ventilator and NPO 06/29/24 09:36 Consult to Physical Therapy Evaluate & Treat Comment: Physician Instructions: Evaluate and Treat 06/29/24 09:37 Consult to Speech Therapy Evaluate & Treat Comment: Physician Instructions: Evaluate and treat Discharge provider: Carl Paul DO Summary Hospital Course Discharge Diagnosis: 1. Toxic encephalopathy, subsequent alcohol withdrawal. 2. Likely contaminant blood culture 3. MSSA pneumonia, new and active. Sputum culture reveals Staph aureus with sensitivity to follow. 4. History of seizure disorder, present on admission and stable. 5. Polysubstance overdose, present on admission and improved. 6. Hypernatremia, present on admission and improved. 7. New severe alcohol withdrawal, new and active. 8. Hypokalemia and hypomagnesemia Hospital Course: This is a 29-year-old male who was admitted after being brought in for seizure-like activity and foaming at the mouth. On arrival to the emergency room his pupils were dilated and he was diaphoretic. Initially he received 4 mg of Ativan without much improvement, and he was intubated for airway protection. His urine drug screen was initially positive for multiple substances including benzodiazepines, MDMA, cocaine, amongst others. He was then admitted to the ICU, and due to a variety of reasons was unable to be extubated until June 27. His intubated course was complicated by development of an MSSA pneumonia, possibly due to aspiration given his presentation, and his blood cultures were also positive though only 1 of 4 were positive and were a Staph epidermidis and capitis consistent with probable contaminant. He was continued on cefazolin for antibiotics, which did improve his respiratory status. His primary reason for delayed extubation was likely due to alcohol withdrawal. He was a heavy drinker, and required Precedex infusion along with continued benzodiazepines initially. After extubation, the patient was started on Librium, which did need to be increased due to continued withdrawal symptoms after extubation. He continued to slowly improve, and on the day of discharge was able to ambulate successfully without assistance within his room, without significant tremors despite starting a taper of his Librium that morning. We discussed continued monitoring here in the hospital versus discharge home at that time, and the patient and family were agreeable for discharge home at that time. Given the likely contaminant but possible bacteremia with rapid clearance on repeat blood cultures, as well as his MSSA pneumonia, the patient was discharged on oral levofloxacin for another week to complete a total 2 week course after discussion of the risks and benefits of continued antibiotics compared to the typical 1 week recommended course which he completed here in the hospital. For his alcohol withdrawal he was discharged on a continued taper of Librium 25 mg 3 times a day for 2 additional days, followed by 25 mg 2 times a day for 2 more days and then stopping. He also has continued prescriptions for clonazepam and propranolol which she should continue. No other changes to his home medications were recommended on discharge. The patient declined alcohol cessation resources offered by case management. He did have a very supportive family with plans to continue to encourage him to not drink in the future. Time Spent with Patient Time spent: Greater than 30 minutes Exam Vital Signs (past 8 hours): - 07/01/24 07:00 07/01/24 08:00 Temperature 98.9 F Pulse Rate 92 H Respiratory Rate 19 Blood Pressure 136/78 Pulse Oximetry 97 Oxygen Delivery Method Room Air Oxygen Flow Rate 0 Fraction of Inspired Oxygen 28 Oxygen Delivery Method Room Air Oxygen Flow Rate 0 Narrative Exam Narrative: Gen: alert, oriented to name and location, confused, slightly lethargic CV: RRR no m/r/g Pulm: CTA B/l Abd: S NT ND Ext: no edema Neuro: Mild tongue fasciculations and tremulousness Objective Labs 06/30/24 07:00 06/30/24 07:00 [facility] Medical History Seizure Anxiety Social History household members: none Smoking Status: Former smoker alcohol intake: current Discharge Plan Discharge Plan Patient Disposition: Home Provider Discharge Comment: You were admitted to the hospital with an intoxication of multiple substances, required intubation for multiple days. Extended stay due to a staph pneumonia and alcohol withdrawal, now improved. Discharge orders & Medications Prescriptions: New chlordiazepoxide HCl 25 mg capsule See Rx Instructions .ROUTE .COMPLEX Qty: 10 0RF Rx Instructions: 25 mg orally TID for 2 days, followed by 25 mg BID orally for 2 days levofloxacin 750 mg tablet 750 mg PO DAILY 7 Days Qty: 7 0RF Continued propranolol 60 mg tablet 60 mg PO BID PRN (Reason: for anxiety) Qty: 180 0RF hydroxyzine HCl 25 mg tablet 25 mg PO BEDTIME Qty: 30 0RF clonazepam 2 mg tablet 1 - 2 mg PO BID PRN (Reason: anxiety or insomnia) Qty: 60 0RF Rx Instructions: Take 1/2 to 1 tab as written FOR UP TO TWICE DAILY as needed. Watch for sedation. Limit use as possible. Follow up/Referrals: Neli Rogers FNP-JUAN C [Primary Care Provider] - Discharge Health Status Multidrug resistant organism: No MDRO Diet/Activity/Treatments Diet: Diet as Tolerated and Regular Diet comment: As tolerated, no restrictions Activity: As tolerated Visit Report/Discharge Packet Stand Alone Forms: Patient Portal/API, Stroke Signs & Symptoms Discharge Data Primary Care Provider: Neli Rogers Quality VTE Deep Vein Thrombosis/Pulmonary Embolism Present on Admission: No
--- NOTE | 2024-07-01 10:59 | PC.NURSE ---
Pt being discharged today, pt education reviewed with pt and family. 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 Family and patient educated on what to watch for during alcohol withdrawal symptoms, when to contact PCP or when to go to ED. All questions answered and explained. No further needs at this time. Pt taken via wheelchair to private vehicle, no further pt contact at this time.
--- NOTE | 2024-07-01 12:22 | CM.DPNOTE ---
DC Note Discharge home today w/family and GF Cl DangeloWillieLynn Wilhelm P [phone]. Patient seen by Shyla in admitting to discuss [facility] and the [employer]. According to Shyla, patient was unable to give any concrete information re his income so this application was not completed. There is also a chance patient may not qualify for Medicaid. Met w/patient and encouraged him to continue this application on his own and provided patient and friend Matthew with the information and contacts to do this. Patient given a [employer] application. Alerted TCM with PARTHA Rogers's office of patient's discharge. Plan: Discharge home w/family to transport. Resources provided. FABIÁN
--- NOTE | 2024-07-14 06:44 | PC.NURSE ---
Late Entry: Ordered Lorazepam for this patient was given for 2 mg twice but documented as given as 1 mg twice and 1 mg wasted.
== END 2024-07-01 11:30 | disposition home or self-care (01) | DRG 917 ==
LOC: ED 07:58 → AC 07:58 → ICU 11:41
PROVIDERS: Emergency Medicine; Hospitalist; Internal Medicine; Internal Medicine Critical Care Medicine; Internal Medicine Pulmonary Disease; Pharmacist Pharmacist Clinician (PhC)/ Clinical Pharmacy Specialist; Admitting Provider Internal Medicine; Emergency Provider Emergency Medicine; PCP Nurse Practitioner Family; Referring Provider Emergency Medicine; Visit Provider Internal Medicine
DX: T40.5X1A Poisoning by cocaine, accidental (unintentional), initial encounter (principal); G92.8 Other toxic encephalopathy; J96.00 Acute respiratory failure, unspecified whether with hypoxia or hypercapnia; J69.0 Pneumonitis due to inhalation of food and vomit; J15.211 Pneumonia due to Methicillin susceptible Staphylococcus aureus; E87.0 Hyperosmolality and hypernatremia; F10.139 Alcohol abuse with withdrawal, unspecified; G40.909 Epilepsy, unspecified, not intractable, without status epilepticus; F41.9 Anxiety disorder, unspecified; R00.0 Tachycardia, unspecified; E87.6 Hypokalemia; E83.42 Hypomagnesemia; I25.2 Old myocardial infarction; Y90.7 Blood alcohol level of 200-239 mg/100 ml; Z91.040 Latex allergy status; Z91.041 Radiographic dye allergy status; Z87.891 Personal history of nicotine dependence; Z88.0 Allergy status to penicillin
CPT/HCPCS: 31500; 36415; 36569; 36592; 36600; 70450; 71045; 80048; 80053; 80076; 80202; 80305; 80320; 80329; 81001; 82550; 82805; 82962; 83605; 83735; 84484; 85025; 85027; 87040; 87070; 87077; 87086; 87147; 87154; 87186; 87205; 87797; 92610; 93005; 93010; 93306; 94002; 94003; 94010; 94799; 96361; 96374; 96375; 96376; 97116; 97162; 97530; 99233; 99285; 99291; A9270; G0480; J0131; J0330; J0360; J0690; J0692; J1642; J1650; J1940; J1953; J2060; J2250; J2470; J2704; J3010; J3475; J3490

== ENCOUNTER 2024-09-26 17:23 | Emergency (ER) | payer OTHER, SELFPAY ==
[2024-06-27 09:05] VITALS: PULSE 77; RESP 16; O2SAT 97
[2024-06-30 16:00] VITALS: BMI 24.6
[2024-09-26 17:38] VITALS: BP 154/91; PULSE 136; RESP 16; TEMP 36.4; O2SAT 99; BMI 26.9
[2024-09-26 17:48] VITALS: PULSE 114; O2SAT 99
--- NOTE | 2024-09-26 17:52 | DI.RAD.S_ITS ---
PROCEDURE: XR HIP W PEL IF DONE LT 2V INDICATIONS: L hip pain TECHNIQUE: 2 views of the hip were acquired. COMPARISON: [facility], CR, XR HIP W PEL IF DONE LT 2V, 09/02/2019, 8:50. FINDINGS: Bones: No fractures or dislocations. No suspicious bony lesions. The visualized pelvic ring appears intact. Soft tissues: No suspicious soft tissue calcifications or masses. IMPRESSION: No acute bony abnormality. Approved by: Vadim Cuevas M.D. on 09/26/2024 at 17:36
[2024-09-26 18:00] VITALS: PULSE 105; O2SAT 98
[2024-09-26 18:30] VITALS: PULSE 98; O2SAT 99
[2024-09-26 19:00] VITALS: PULSE 89; O2SAT 98
--- NOTE | 2024-09-26 19:16 | ED_ITS ---
HPI - Extremity Injury (Lower) General Chief Complaint: Extremity Injury, Lower Stated Complaint: L Side Hip Pain Time Seen by Provider: 09/26/24 19:16 History of Present Illness HPI Narrative: 29-year-old gentleman presents with left hip pain started on when he was getting out of bed he did not hear a pop or click but has been limping since. He denies any trauma to the area heavy lifting back pain fever chills rash. He states that back in June he fell off a truck or he was wearing a belt around his waist and landed on his left hip and that may have left hand with some type of a chronic injury and now it has flared up. He has not done anything for up to this point he localizes to the left lateral hip just below the buttocks and to the left hip inferiorly. Other than what is stated 14 point review of system is negative Related Data Previous Rx's Medication Instructions Recorded propranolol 60 mg tablet 60 mg PO BID PRN for anxiety #180 05/03/24 tabs chlordiazepoxide HCl 25 mg capsule See Rx Instructions .Route 07/01/24 .COMPLEX #10 caps clonazepam 1 mg tablet 1 mg PO DAILY #7 tabs 07/14/24 clonazepam 2 mg tablet 2 mg PO BID #21 tabs 07/14/24 Allergies Allergy/AdvReac Type Severity Reaction Status Date / Time shellfish derived Allergy Intermediate Verified 07/14/24 15:14 [SHELLFISH DERIVED] latex [LATEX] Allergy Unknown Verified 07/14/24 15:14 Penicillins [PENICILLINS] Allergy Unknown Verified 07/14/24 15:14 Iodinated Contrast Media AdvReac Mild Vomiting Verified 07/14/24 15:14 Review of Systems Review of Systems ROS Unobtainable: All systems reviewed & are unremarkable except as noted in HPI and below Patient History Medical History Seizure Anxiety Social History household members: none alcohol intake: current tobacco type: smokeless tobacco alcohol intake frequency: a few times a week Exam Narrative Exam Narrative: GENERAL: [29] year old patient appears stated age. Well-developed patient, in mild distress. HEAD: Atraumatic. Normocephalic. EYES: Pupils equal round and reactive. Extraocular motions intact. No scleral icterus. No injection or drainage. EXTREMITIES: L hip greater troch region TTP BACK: Nontender without deformity or crepitance. No flank tenderness. NEURO: AOx3. Nonfocal neuro exam SKIN: No rash or erythema of visible areas Initial Vital Signs Initial Vital Signs: Vital Signs Temperature 97.6 F 09/26/24 17:38 Pulse Rate 136 H 09/26/24 17:38 Respiratory Rate 16 09/26/24 17:38 Blood Pressure 154/91 H 09/26/24 17:38 Pulse Oximetry 99 09/26/24 17:38 Oxygen Delivery Method Room Air 09/26/24 17:38 Course Orders Ordered: ED Orders 09/26/24 17:52 XR hip w pel if done LT 2V Stat 09/26/24 19:27 CT pelvis wo con Stat Discontinued Medications Acetaminophen (Acetaminophen 325 Mg Tablet) 650 mg PO NOW ONE Stop: 09/26/24 19:28 Last Admin: 09/26/24 19:38 Dose: 650 mg Documented By: TRACY Ibuprofen (Ibuprofen 400 Mg Tablet) 800 mg PO NOW ONE Stop: 09/26/24 19:28 Last Admin: 09/26/24 19:36 Dose: 800 mg Documented By: TARCY Prednisone (Prednisone 20 Mg Tablet) 60 mg PO NOW ONE Stop: 09/26/24 19:28 Last Admin: 09/26/24 19:37 Dose: 60 mg Documented By: TRACY Vital Signs Vital signs: Vital Signs - 8 hr 09/26/24 17:38 09/26/24 17:48 09/26/24 18:00 Temperature 97.6 F Pulse Rate 136 H 114 H 105 H Respiratory Rate 16 Blood Pressure 154/91 H Pulse Oximetry 99 99 98 Oxygen Delivery Method Room Air 09/26/24 18:30 09/26/24 19:00 Temperature Pulse Rate 98 H 89 Respiratory Rate Blood Pressure Pulse Oximetry 99 98 Oxygen Delivery Method Room Air MDM - Extremity Injury (Lower) Imaging Data Extremity x-ray #1: Radiologist's Impression: [address] [address] [address] Scan Report Signed Patient: Tanika Booker MR#: [id number] : 1995 Acct:[id number] Age/Sex: 29 / M Date of Service: 09/26/24 Loc: ED Accession Number: [id number] Procedure: CT pelvis wo con Ordering Provider: Shane Roman D.O. PROCEDURE: CT PEL WO CON INDICATIONS: L hip pain/ limp/ xray neg TECHNIQUE: Noncontrast 3 mm axial sections acquired through the bony pelvis, with coronal and sagittal reformatting. COMPARISON: [facility], CT, CT ANGIO CHEST ABDOMEN, 10/24/2020, 3:04. [facility], CR, XR HIP W PEL IF DONE LT 2V, 09/26/2024, 17:58. FINDINGS: Image quality: Excellent. Bones: Slight cortical irregularity identified immediately anterior to the greater trochanter seen axial view. It is seen series 6 image. However, it is not well seen on all series. No priors are available for comparison. Soft tissues: Unremarkable. IMPRESSION: Slight cortical irregularity anterior to the greater trochanter not well seen on all views. No priors are available comparison. Although fracture cannot be excluded, finding is somewhat indeterminate. If concern persists, nonemergent MR may be obtained. [address] [address] XRay Report Signed Patient: Tanika Booker MR#: [id number] : 1995 Acct:[id number] Age/Sex: 29 / M Date of Service: 09/26/24 Loc: ED Accession Number: [id number] Procedure: XR hip w pel if done LT 2V Ordering Provider: Phillip Amaya MD PROCEDURE: XR HIP W PEL IF DONE LT 2V INDICATIONS: L hip pain TECHNIQUE: 2 views of the hip were acquired. COMPARISON: [facility], CR, XR HIP W PEL IF DONE LT 2V, 09/02/2019, 8:50. FINDINGS: Bones: No fractures or dislocations. No suspicious bony lesions. The visualized pelvic ring appears intact. Soft tissues: No suspicious soft tissue calcifications or masses. IMPRESSION: No acute bony abnormality. Approved by: Vadim Cuevas M.D. on 09/26/2024 at 17:36 MDM Narrative Medical decision making narrative: X-ray and CT scan reviewed. Patient given [address] [place] here. Vital signs nurse triage note medication list previous ER visits all reviewed. Differential diagnosis includes fracture dislocation trochanteric bursitis ligament injury sciatica piriformis syndrome. I have asked the patient to come back tomorrow for MRI since we do not have any here today. Return with new or worsening symptoms. Discharge Plan Departure Patient Disposition: Home Clinical Impression: Acute hip pain Qualifiers: Laterality: left Qualified Code(s): M25.552 - Pain in left hip Instructions: DI for Hip Pain Activity Restrictions/Additional Instructions: Return with new or worsening symptoms. Follow up for MRI Prescriptions: No Action propranolol 60 mg tablet 60 mg PO BID PRN (Reason: for anxiety) Qty: 180 0RF clonazepam 2 mg tablet 2 mg PO BID Qty: 21 0RF Rx Instructions: Can take 2mg twice daily Week 1 then decrease to one tab Week 2 clonazepam 1 mg tablet 1 mg PO DAILY Qty: 7 0RF chlordiazepoxide HCl 25 mg capsule See Rx Instructions .ROUTE .COMPLEX Qty: 10 0RF Rx Instructions: 25 mg orally TID for 2 days, followed by 25 mg BID orally for 2 days Referrals: Neli Rogers FNP-BC [Primary Care Provider] - Stand Alone Forms: Patient Portal/API/Survey
--- NOTE | 2024-09-26 19:27 | DI.CT.S_ITS ---
PROCEDURE: CT PEL WO CON INDICATIONS: L hip pain/ limp/ xray neg TECHNIQUE: Noncontrast 3 mm axial sections acquired through the bony pelvis, with coronal and sagittal reformatting. COMPARISON: [facility], CT, CT ANGIO CHEST ABDOMEN, 10/24/2020, 3:04. [facility], CR, XR HIP W PEL IF DONE LT 2V, 09/26/2024, 17:58. FINDINGS: Image quality: Excellent. Bones: Slight cortical irregularity identified immediately anterior to the greater trochanter seen axial view. It is seen series 6 image. However, it is not well seen on all series. No priors are available for comparison. Soft tissues: Unremarkable. IMPRESSION: Slight cortical irregularity anterior to the greater trochanter not well seen on all views. No priors are available comparison. Although fracture cannot be excluded, finding is somewhat indeterminate. If concern persists, nonemergent MR may be obtained. Dictated by: Maribel Oconnell M.D. on 09/26/2024 at 20:58 Approved by: Maribel Oconnell M.D. on 09/26/2024 at 21:06
[2024-09-26] MEDS: IBUPROFEN 400 MG TABLET 800 MG PO (19:36)
[2024-09-26] MEDS: predniSONE 20 MG TABLET 60 MG PO (19:37)
[2024-09-26] MEDS: ACETAMINOPHEN 325 MG TABLET 650 MG PO (19:38)
[2024-09-26] MEDS: HYDROCODONE/ACET 5/325 TABLET 1 TAB PO (21:33)
[2024-09-26 21:35] VITALS: BP 148/88; PULSE 87; RESP 16; O2SAT 100
== END 2024-09-26 21:39 | disposition home or self-care (01) ==
PROVIDERS: Emergency Provider Family Medicine; PCP Nurse Practitioner Family
DX: M25.552 Pain in left hip (principal); Y93.I9 Activity, other involving external motion
CPT/HCPCS: 72192; 73502; 99283; 99284

== ENCOUNTER 2024-09-27 14:38 | Emergency (ER) | payer OTHER, SELFPAY ==
[2024-06-27 09:05] VITALS: PULSE 77; RESP 16; O2SAT 97
[2024-06-30 16:00] VITALS: BMI 24.6
[2024-09-27 14:41] VITALS: BP 147/85; PULSE 110; RESP 18; TEMP 37.1; O2SAT 98; BMI 25.5
--- NOTE | 2024-09-27 14:55 | ED_ITS ---
HPI - Recheck/Abnormal Lab/Rx General Chief Complaint: Recheck/Abnormal Lab/Rx Stated Complaint: hip px, told to return for MRI by Dr Roman Time Seen by Provider: 09/27/24 14:47 Source: patient Mode of arrival: Ambulatory History of Present Illness HPI narrative: 29-year-old male returns to the ED for an MRI of the left hip. Patient was seen in the ED yesterday, x-ray and CT scans were obtained. CT scan shows a slight cortical irregularity identified immediately anterior to the greater trochanter as seen on the axial view. No priors are available for comparison. Although fracture can not be excluded, finding is somewhat indeter minate. Radiologist recommends a nonemergent MR if concern persists. Patient was asked to return to the ED for an MRI today. Patient states that his pain improved somewhat after he was given some ibuprofen in the ED last night. Patient is able to bear weight and walk today. No numbness, tingling, weakness. Related Data Previous Rx's Medication Instructions Recorded propranolol 60 mg tablet 60 mg PO BID PRN for anxiety #180 05/03/24 tabs chlordiazepoxide HCl 25 mg capsule See Rx Instructions .Route 07/01/24 .COMPLEX #10 caps clonazepam 1 mg tablet 1 mg PO DAILY #7 tabs 07/14/24 clonazepam 2 mg tablet 2 mg PO BID #21 tabs 07/14/24 Allergies Allergy/AdvReac Type Severity Reaction Status Date / Time shellfish derived Allergy Intermediate Verified 07/14/24 15:14 [SHELLFISH DERIVED] latex [LATEX] Allergy Unknown Verified 07/14/24 15:14 Penicillins [PENICILLINS] Allergy Unknown Verified 07/14/24 15:14 Iodinated Contrast Media AdvReac Mild Vomiting Verified 07/14/24 15:14 Review of Systems Constitutional Constitutional: Denies chills, Denies fatigue, Denies fever(s), Denies frequent falls, Denies lethargy and Denies weakness Eyes Eyes: Denies change in vision, Denies eye discharge, Denies irritation and Denies loss of vision ENT Ears, Nose, Mouth, and Throat: Denies change in voice, Denies dizziness, Denies neck pain, Denies sore throat and Denies throat swelling Cardiovascular Cardiovascular: Denies chest pain, Denies irregular heart rhythm, Denies lightheadedness, Denies palpitations, Denies dyspnea, Denies dyspnea on exertion and Denies orthopnea Respiratory Respiratory: Denies cough, Denies dyspnea, Denies dyspnea on exertion and Denies wheezing Gastrointestinal Gastrointestinal: Denies abdominal pain, Denies change in bowel habits, Denies diarrhea, Denies nausea and Denies vomiting Musculoskeletal Musculoskeletal: Denies neck pain and Denies numbness Comments: Left hip pain Integumentary/Breasts Skin/Breast: Denies pruritus, Denies erythema, Denies rash and Denies wounds Neurologic Neurologic: Denies behavioral changes, Denies confusion, Denies dizziness, Denies frequent falls, Denies loss of vision, Denies numbness and Denies weakness Psychiatric Psychiatric: Denies anxiety, Denies behavioral changes, Denies confusion, Denies depression, Denies homicidal ideation and Denies suicidal ideation Endocrine Endocrine: Denies fatigue, Denies flushing and Denies palpitations Hematologic/Lymphatic Hematologic/Lymphatic: Denies easy bruising Allergic/Immunologic Allergic/Immunologic: Denies urticaria, Denies throat swelling and Denies wheezing Patient History Medical History Seizure Anxiety Social History household members: none alcohol intake: current tobacco type: smokeless tobacco alcohol intake frequency: a few times a week Exam Narrative Exam Narrative: Const General:?cooperative, healthy appearing and comfortable [facility] Head:?normal to inspection Ears:?hearing grossly normal bilaterally Nose:?external nose normal Face and sinus:?normal facial exam and sinuses nontender Mouth:?oral mucosae normal Throat:?posterior oropharynx normal Eyes General:?appearance normal, both eyes and all related structures Neck Neck:?normal visual inspection and no lymphadenopathy noted Resp Effort & Inspection:?normal respiratory effort Auscultation:?clear to auscultation bilaterally Cardio Rate:?regular rate Rhythm:?regular rhythm Musculoskeletal Tenderness to palpation of left hip in the greater trochanteric region Neuro General:?patient alert, patient awake and patient oriented x3 Initial Vital Signs Initial Vital Signs: Vital Signs Temperature 98.7 F 09/27/24 14:41 Pulse Rate 110 H 09/27/24 14:41 Respiratory Rate 18 09/27/24 14:41 Blood Pressure 147/85 H 09/27/24 14:41 Pulse Oximetry 98 09/27/24 14:41 Oxygen Delivery Method Room Air 09/27/24 14:41 Course Orders Ordered: ED Orders 09/27/24 15:01 MR hip LT wo con Stat Discontinued Medications Ibuprofen (Ibuprofen 400 Mg Tablet) 800 mg PO NOW ONE Stop: 09/27/24 15:01 Last Admin: 09/27/24 15:06 Dose: 800 mg Documented By: ABHILASH Vital Signs Vital signs: Vital Signs - 8 hr 09/27/24 14:41 09/27/24 19:43 Temperature 98.7 F Pulse Rate 110 H 87 Respiratory Rate 18 18 Blood Pressure 147/85 H 140/76 Pulse Oximetry 98 99 Oxygen Delivery Method Room Air Room Air MDM - Recheck/Abnormal Lab/Rx MDM Narrative Medical decision making narrative: 29-year-old male returns to the ED for an MRI of the left hip. MRI has been ordered. Patient given some ibuprofen for pain control. Will reassess. MRI results: PROCEDURE: MR HIP LT WO CON INDICATIONS: trochanteric fx TECHNIQUE: Noncontrast coronal T1 spin echo and STIR through the bony pelvis. Coronal and axial T2 fast spin echo with fat saturation, sagittal T1 spin echo, and oblique axial T2 fast spin echo with fat saturation through the hip. COMPARISON: [facility], CT, CT PEL WO CON, 09/26/2024, 20:24. FINDINGS: Image quality: Excellent. Bones and joints: Prominence of superior anterior left femoral head neck junction is seen which can be seen associated with CAM type femoral acetabular impingement. There is no acute left hip fracture or dislocation. No evidence of inter trochanteric fracture. No avascular necrosis of the femoral heads. The visualized lower lumbar spine appears normally aligned. Tendons and ligaments: There is suggestion of high-grade partial-thickness tear versus full-thickness rupture involving distal left gluteus medius tendon at its insertion on greater trochanter with up to 5.7 cm proximal retraction of torn tendon fibers to the level of musculotendinous junction. Significant surrounding fluid and edema is seen. Mild tendinosis involving distal left gluteus minimus tendon is seen. The nearby proximal iliotibial band also appears intact. The iliopsoas tendon appears intact, without adjacent bursal fluid collections or evidence for impingement syndrome. The origin of the hamstring tendon is intact at the ischial tuberosity. Labrum and cartilage: Subtle fraying and T2 hyperintense signal involving superior anterior left acetabular labrum concerning for subtle superior anterior labral tear. Cartilage surface of the femoral head appears of normal thickness. Soft tissues: There is muscle strain involving left adductor valentino muscle and lateral portion of left obturator externus muscle at the level of femoral neck. Quadratus femoris muscle demonstrates no internal edema to suggest ischiofemoral impingement. The proximal sciatic neurovascular bundle appears normal adjacent to the hamstring tendons. No free pelvic fluid. Bladder wall thickness is normal. Genitourinary structures and bowel loops appear normal where visualized. IMPRESSION: 1. No acute left hip fracture or dislocation. No evidence of intertrochanteric left femoral fracture. No suspicious intraosseous lesion. Prominence of superior anterior left femoral head neck junction which can be seen associated with CAM type femoral acetabular impingement. No evidence of avascular necrosis of femoral head. 2. High-grade partial-thickness tear to full-thickness rupture involving distal left gluteus medius tendon at its insertion on greater trochanter with up to 5.7 cm proximal retraction of torn tendon fibers to the level of musculotendinous junction with surrounding soft tissue edema and fluid. Distal left gluteus minimus tendinosis. 3. Strain/low-grade partial-thickness tear involving lateral portion of left adductor valentino muscle and left obturator externus muscle at the level of left femoral neck/intertrochanteric region. 4. Finding is suggestive of subtle superior anterior left acetabular labral tear. Dictated by: Cooper Hernandez M.D. on 09/27/2024 at 18:37 Approved by: Cooper Hernandez M.D. on 09/27/2024 at 18:44 Dr. Tao from [facility] was consulted, she recommends outpatient follow-up with a hip arthroscopist. Discussed findings and plan with patient. He agrees to follow-up with a hip specialist. Also recommend follow-up with PCP for further evaluation and referrals. Recommend minimal weight-bearing until follow-up. ED return precautions discussed with patient. Patient verbalized understanding. Medical records reviewed: Yes Discharge Plan Departure Patient Disposition: Home Clinical Impression: Acute hip pain Qualifiers: Laterality: left Qualified Code(s): M25.552 - Pain in left hip Instructions: DI for Hip Pain Activity Restrictions/Additional Instructions: You were evaluated in the ED today for left-sided hip pain. Your MRI does show a high-grade tear of the gluteus medius tendon on the left side. There is also a strain or low-grade tear involving the lateral portion of the left adductor valentino muscle and left obturator externus muscle. It is recommended that you continue taking 800 mg of ibuprofen every 8 hours with food to reduce the inflammation and pain. It is also recommended that you continue to minimize weight-bearing on the left hip, using crutches. Please follow-up with a hip arthroscopic specialist at [facility] by calling [phone]. Return to the ED if you have worsening symptoms. Prescriptions: No Action propranolol 60 mg tablet 60 mg PO BID PRN (Reason: for anxiety) Qty: 180 0RF clonazepam 2 mg tablet 2 mg PO BID Qty: 21 0RF Rx Instructions: Can take 2mg twice daily Week 1 then decrease to one tab Week 2 clonazepam 1 mg tablet 1 mg PO DAILY Qty: 7 0RF chlordiazepoxide HCl 25 mg capsule See Rx Instructions .ROUTE .COMPLEX Qty: 10 0RF Rx Instructions: 25 mg orally TID for 2 days, followed by 25 mg BID orally for 2 days Referrals: Neli Rogers FNP-BC [Primary Care Provider] - Stand Alone Forms: Patient Portal/API/Survey
--- NOTE | 2024-09-27 15:01 | DI.MRI.S_ITS ---
PROCEDURE: MR HIP LT WO CON INDICATIONS: trochanteric fx TECHNIQUE: Noncontrast coronal T1 spin echo and STIR through the bony pelvis. Coronal and axial T2 fast spin echo with fat saturation, sagittal T1 spin echo, and oblique axial T2 fast spin echo with fat saturation through the hip. COMPARISON: [facility], CT, CT PEL WO CON, 09/26/2024, 20:24. FINDINGS: Image quality: Excellent. Bones and joints: Prominence of superior anterior left femoral head neck junction is seen which can be seen associated with CAM type femoral acetabular impingement. There is no acute left hip fracture or dislocation. No evidence of inter trochanteric fracture. No avascular necrosis of the femoral heads. The visualized lower lumbar spine appears normally aligned. Tendons and ligaments: There is suggestion of high-grade partial-thickness tear versus full-thickness rupture involving distal left gluteus medius tendon at its insertion on greater trochanter with up to 5.7 cm proximal retraction of torn tendon fibers to the level of musculotendinous junction. Significant surrounding fluid and edema is seen. Mild tendinosis involving distal left gluteus minimus tendon is seen. The nearby proximal iliotibial band also appears intact. The iliopsoas tendon appears intact, without adjacent bursal fluid collections or evidence for impingement syndrome. The origin of the hamstring tendon is intact at the ischial tuberosity. Labrum and cartilage: Subtle fraying and T2 hyperintense signal involving superior anterior left acetabular labrum concerning for subtle superior anterior labral tear. Cartilage surface of the femoral head appears of normal thickness. Soft tissues: There is muscle strain involving left adductor valentino muscle and lateral portion of left obturator externus muscle at the level of femoral neck. Quadratus femoris muscle demonstrates no internal edema to suggest ischiofemoral impingement. The proximal sciatic neurovascular bundle appears normal adjacent to the hamstring tendons. No free pelvic fluid. Bladder wall thickness is normal. Genitourinary structures and bowel loops appear normal where visualized. IMPRESSION: 1. No acute left hip fracture or dislocation. No evidence of intertrochanteric left femoral fracture. No suspicious intraosseous lesion. Prominence of superior anterior left femoral head neck junction which can be seen associated with CAM type femoral acetabular impingement. No evidence of avascular necrosis of femoral head. 2. High-grade partial-thickness tear to full-thickness rupture involving distal left gluteus medius tendon at its insertion on greater trochanter with up to 5.7 cm proximal retraction of torn tendon fibers to the level of musculotendinous junction with surrounding soft tissue edema and fluid. Distal left gluteus minimus tendinosis. 3. Strain/low-grade partial-thickness tear involving lateral portion of left adductor valentino muscle and left obturator externus muscle at the level of left femoral neck/intertrochanteric region. 4. Finding is suggestive of subtle superior anterior left acetabular labral tear. Dictated by: Cooper Hernandez M.D. on 09/27/2024 at 18:37 Approved by: Cooper Hernandez M.D. on 09/27/2024 at 18:44
[2024-09-27] MEDS: IBUPROFEN 400 MG TABLET 800 MG PO (15:06)
[2024-09-27 19:43] VITALS: BP 140/76; PULSE 87; RESP 18; O2SAT 99
== END 2024-09-27 19:45 | disposition home or self-care (01) ==
PROVIDERS: Emergency Provider Student in an Organized Health Care Education/Training Program; PCP Nurse Practitioner Family
DX: M25.552 Pain in left hip (principal)
CPT/HCPCS: 73721; 99283; 99284

== ENCOUNTER 2025-01-11 13:45 | Outpatient (RCR) | payer OTHER, SELFPAY ==
[2024-06-27 09:05] VITALS: PULSE 77; RESP 16; O2SAT 97
[2024-06-30 16:00] VITALS: BMI 24.6
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
--- NOTE | 2024-12-21 14:47 | PT-OP ANOTE ---
Called pt on phone, he states he lost track of time due to an emergency that came up, unspecified. Notifed pt of max of 2 no show policy.
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
--- NOTE | 2024-12-30 14:07 | PT-OP ANOTE ---
Left voicemail for pt re: missed PT appointment today. Explained No Show policy, encouraged to make contact with Ground Transportation Operator at [phone], and advised next PT appt 01/04 @ 1:45pm.
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
--- NOTE | 2025-01-18 14:05 | PT-OP ANOTE ---
1405 (pt scheduled at 1345) Called pt to notify of 3rd no show and need for new doctor's referral and new PT evaluation to continue PT d/t 2 no show policy, unable to leave voicemail on phone.
--- NOTE | 2025-01-18 14:14 | PT-OP ANOTE ---
1415 Spoke to front office associate who state they have not heard from pt. Attempted call again and able to leave a voice message about no show policy and need for new referral, requested pt to call front office associate and explain situation if needed.
--- NOTE | 2025-01-20 13:28 | PT-OP ANOTE ---
1325 Attempted another call to pt and left a voice message informing him of the cancellation of today's appointment and all future appointments and to return to PT with a new doctor's referral as a result of 3 no show visits.
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
== END 2025-01-31 11:12 | disposition home or self-care (01) ==
LOC: PHYS 13:45
PROVIDERS: PCP Nurse Practitioner Family; Referring Provider Orthopaedic Surgery Sports Medicine; Visit Provider Orthopaedic Surgery Sports Medicine
DX: S76.012D Strain of muscle, fascia and tendon of left hip, subsequent encounter (principal)
CPT/HCPCS: 97110; 97112; 97116; 97140; 97162